=== PATIENT | female | born 1945 | race Caucasian/White ===

== ENCOUNTER 2018-01-06 18:37 | Inpatient (IN) | payer MEDICARE, OTHER, SELFPAY ==
[2018-01-06] VITALS (10 sets, daily range): BP systolic 94–153; BP diastolic 55–109; PULSE 91–167; RESP 16–17; TEMP 36.7–37.2; O2SAT 92–100
--- NOTE | 2018-01-06 19:27 | ED_ITS ---
HPI - Nausea/Vomiting/Diarrhea General Chief complaint: Nausea/Vomiting/Diarrhea Stated complaint: DIARRHEA,FEVER Time Seen by Provider: 01/06/18 19:00 Source: patient and family Mode of arrival: ambulatory Limitations: no limitations History of Present Illness MD complaint: diarrhea Onset (ago): day(s) (3) Description of Diarrhea: watery Location of pain: diffuse ( patient states the pain is really not in her abdomen , but all over the rest of her body. She states this is been going on for about 1 day. She states even her feet feel as though they're cramping.) and other Severity: moderate Quality: cramping Pain Consistency: other ( Patient states she mainly feels that if she moves or tries to walk.) Relieving factors: none Exacerbating factors: eating ( Patient states she has not really had an appetite since the diarrhea began, but that anything she takes by mouth seems to exacerbate her diarrhea. Daughter states, however, the patient has not had a bowel movement of any kind for the past 8 hr. Urination is also decreased.) Context: other ( No recent foreign travel, trauma, sick contacts, recent antibiotic use, surgery, or alcohol. No new medications.) Associated symptoms: myalgias and loss of appetite Related Data Home Medications Medication Instructions Recorded Confirmed anastrozole 1 mg PO DAILY 01/06/18 01/06/18 furosemide 40 mg PO PRN PRN 01/06/18 01/06/18 gabapentin 600 mg PO TID 01/06/18 01/06/18 loperamide [Imodium A-D] 2 mg PO BID PRN 01/06/18 01/06/18 meloxicam 15 mg PO DAILY 01/06/18 01/06/18 omeprazole 20 mg PO DAILY 01/06/18 01/06/18 Allergies Allergy/AdvReac Type Severity Reaction Status Date / Time iodine Allergy Mild Rash Verified 01/06/18 18:55 NSAIDS (Non-Steroidal AdvReac Intermediate Verified 01/06/18 18:55 Anti-Inflamma Review of Systems Review of Systems All systems reviewed & are unremarkable except as noted in HPI and below Constitutional Denies chills, Denies fever(s), Denies lethargy and Denies weakness Eyes Denies change in vision, Denies eye discharge, Denies irritation and Denies loss of vision Cardiovascular Denies chest pain, Denies irregular heart rhythm, Denies lightheadedness, Denies palpitations, Denies dyspnea, Denies dyspnea on exertion and Denies orthopnea Respiratory Denies cough, Denies dyspnea, Denies dyspnea on exertion and Denies wheezing Gastrointestinal Gastrointestinal: Reports change in bowel habits and Reports diarrhea Genitourinary Denies hematuria, Denies flank pain, Denies urinary incontinence and Denies urinary urgency Musculoskeletal Denies back pain, Denies muscle weakness, Denies numbness and Denies tingling Integumentary/Breasts Denies pruritus, Denies erythema, Denies rash and Denies wounds Neurologic Denies confusion, Denies loss of vision, Denies numbness, Denies tingling and Denies weakness Psychiatric Denies anxiety, Denies confusion, Denies depression, Denies homicidal ideation and Denies suicidal ideation Endocrine Denies palpitations Allergic/Immunologic Denies wheezing PFSH Social History household members: none Smoking Status: Former smoker alcohol intake: never Exam Initial Vital Signs Initial Vital Signs: Vital Signs Temperature 98.1 F 01/06/18 18:45 Pulse Rate 104 H 01/06/18 18:45 Respiratory Rate 16 01/06/18 18:45 Blood Pressure 98/66 01/06/18 18:45 Pulse Oximetry 100 01/06/18 18:45 Const General: cooperative and well developed Nutritional Appearance: well nourished Orientation: alert, awake, oriented x3 and not confused [facility] Head: normocephalic and atraumatic Ears: external ears normal and TM's normal bilaterally Nose: external nose normal and No nasal discharge Face and sinus: sinuses nontender, face symmetric, no sinus tenderness and No dry mucous membranes Mouth: oral mucosae normal and moist mucous membranes Teeth and gingiva: dentition normal Throat: tonsils normal and uvula midline Eyes General: appearance normal, both eyes and all related structures Eyelids: eyelids normal Conjunctivae: conjunctivae normal Sclera: sclerae normal Pupils: PERRL EOM: EOM intact bilaterally Neck Neck: normal visual inspection, trachea midline, No lymphadenopathy, No midline deformity and No JVD Lymphatic: No lymphedema Resp Effort & Inspection: normal respiratory effort, able to speak in complete sentences, no respiratory distress and no use of accessory muscles Auscultation: clear to auscultation bilaterally, no rales, no rhonchi and no wheezes Cardio Rate: regular rate Rhythm: regular rhythm Heart Sounds: no click, no gallops, no murmurs and no rubs Pulses: normal peripheral pulses GI Inspection: non-distended Palpation: soft, no hepatosplenomegaly, No guarding, No pulsatile mass and No tender Auscultation: normal bowel sounds Back/Spine/Pelvis Back: No CVA tenderness Cervical Spine: cervical ROM normal and No pain with cervical ROM Thoracic/Lumbar Spine: thoracic and lumbar spine normal to inspection Skin General: no rashes or lesions noted, No jaundice and No petechiae Neuro General: alert, oriented x3, gait normal and no focal motor deficits Speech: speech normal Extrem General: full ROM, no clubbing, cyanosis or edema, no pedal edema and no calf tenderness Procedures Misc Procedure Name of Procedure: Electrical cardioversion Time out performed: Yes Technique/Description of procedure performed: Patient was cardioverted with 50 J, secondary to hemodynamic instability, due to extreme tachycardia as a result of AFib with RVR, and hypotension. Procedure was performed by ED MD. Monitor reading prior to the procedure showed an irregular rhythm with a rate varying from the 180s to 190s, without ectopy. This is consistent with atrial fibrillation with RVR, as interpreted by EDMD. Patient tolerated procedure: Well Complications: none Additional Comments: After synchronize cardioversion with 50 joules of electricity, patient immediately converted from atrial fibrillation with rapid ventricular response to normal sinus rhythm on the monitor. Course Hospital Course: Patient was also found to have elevated AST and ALT, so a right upper quadrant ultrasound was performed. This showed no evidence of cholecystitis, but did show sludge in the gallbladder with mild distension. Normal common bile duct. Orders Ordered: ED Orders 01/07/18 02:54 Lactate 4HR (Lactic Acid Rflx) Stat 01/07/18 06:05 Lactate (Lactic Acid) Urgent Troponin I Urgent Acetaminophen (Tylenol) 650 mg PO Q6HR PRN PRN Reason: As Needed for Fever/Mild Pain Sodium Chloride (Normal Saline 0.9%) 1,000 mls @ 125 mls/hr IV CONT JOSE CARLOS Last Admin: 01/07/18 03:50 Dose: 125 mls/hr Morphine Sulfate (Morphine) 2 mg IV Q4HR PRN PRN Reason: Pain, Moderate (4-6) Discontinued Medications Acetaminophen (Tylenol) 650 mg PO Q6HR PRN PRN Reason: As Needed for Fever/Mild Pain Diltiazem HCl (Cardizem) 10 mg IV NOW ONE Stop: 01/06/18 21:55 Last Admin: 01/06/18 21:13 Dose: Not Given Sodium Chloride (Normal Saline 0.9%) 1,000 mls @ 1,000 mls/hr IV BOLUS ONE Stop: 01/06/18 20:54 Last Infusion: 01/07/18 03:50 Dose: 250 mls/hr Infusion: 01/07/18 02:18 Dose: 250 mls/hr Admin: 01/06/18 21:44 Dose: 1,000 mls/hr Ceftriaxone Sodium/Dextrose (Rocephin) 2 gm in 50 mls @ 100 mls/hr IV NOW ONE Stop: 01/07/18 00:12 Last Infusion: 01/07/18 02:21 Dose: 0 mls/hr Admin: 01/07/18 01:12 Dose: 100 mls/hr Sodium Chloride (Normal Saline 0.9%) 1,000 mls @ 125 mls/hr IV CONT JOSE CARLOS Last Admin: 01/07/18 03:46 Dose: Morphine Sulfate (Morphine) 2 mg IV NOW ONE Stop: 01/06/18 22:20 Last Admin: 01/06/18 21:15 Dose: Not Given Morphine Sulfate (Morphine) 2 mg IV Q4HR PRN PRN Reason: Pain, Moderate (4-6) Last Admin: 01/07/18 01:13 Dose: 2 mg Ondansetron HCl (Zofran) 4 mg IV Q4HR PRN PRN Reason: Nausea And Vomiting Last Admin: 01/07/18 01:20 Dose: 4 mg Vital Signs - 8 hr 01/07/18 01:13 01/07/18 02:00 01/07/18 03:05 Temperature 99.4 F 99.4 F 100.4 F H Pulse Rate 104 H 103 H Respiratory Rate 17 24 Blood Pressure 111/65 101/48 L Pulse Oximetry 97 94 01/07/18 03:30 01/07/18 04:16 01/07/18 05:59 Temperature 101.0 F H 98.6 F 97.8 F Pulse Rate Respiratory Rate Blood Pressure Pulse Oximetry MDM - Nausea/Vomiting/Diarrhea Medical Records Attestation: I reviewed the patient's medical records. Lab Data Attestation: I reviewed the patient's lab results. Result diagrams: 01/06/18 21:27 01/06/18 21:27 Lab Results 01/06/18 01/06/18 01/06/18 Range/Units 21:27 21:27 21:27 WBC 3.8 L (4.5-11.0) X10^3/uL RBC 4.26 (4.0-5.2) X10^6/uL Hgb 13.5 (12.0-16.0) g/dL Hct 39.3 (36-46) % MCV 92.1 (80-100) fL MCH 31.6 (26-34) PG MCHC 34.3 (30-36) % RDW 14.4 (11.6-14.8) % Plt Count 39 L (150-400) X10^3/uL Total Counted 100 Seg Neutrophils % 67.0 (38-70) % Band Neutrophils % 19.0 H (3-7) % Lymphocytes % (Manual) 7.0 L (25-45) % Monocytes % (Manual) 6.0 (2-11) % Metamyelocytes % 1.0 H (-0) % Neutrophils # (Manual) [phone] ([id number]) /uL Differential Comment 1+ large platelets Toxic Granulation Present H Toxic Vacuolation 1+ Platelet Estimate Decreased on smear RBC Morphology Normal morphology Sodium 125 L (137-145) mmol/L Potassium 3.6 (3.4-5.1) mmol/L Chloride 91 L (98-107) mmol/L Carbon Dioxide 27 (22-32) mmol/L BUN 22 H (7-17) mg/dL Creatinine 1.10 H (0.52-1.04) mg/dL Estimated GFR 49.1 L (>60) mL/min BUN/Creatinine Ratio 20.0 (6-22) Glucose 106 (80-110) mg/dL Lactate (0.7-2.1) mmol/L Calcium 8.8 (8.4-10.2) mg/dL Total Bilirubin 1.1 (0.2-1.3) mg/dL AST 497 H (14-36) IU/L ALT 137 H (9-52) IU/L Alkaline Phosphatase 50 (38-126) U/L Troponin I (0.01-0.034) ng/mL B-Natriuretic Peptide 833.0 H (<100) Total Protein 5.9 L (6.3-8.2) g/dL Albumin 3.2 L (3.5-5.0) g/dL Globulin 2.7 (1.7-4.1) g/dL Albumin/Globulin Ratio 1.2 (1.0-2.8) Urine Color Urine Appearance Urine pH (4.5-8.0) Ur Specific [place] (1.000-1.035) Urine Protein (Negative) Urine Glucose (UA) (Normal) g/dL Urine Ketones (NEGATIVE) Urine Occult Blood (Negative) Urine Nitrate (Negative) Urine Bilirubin (NEGATIVE) Urine Urobilinogen (0.2) E.U./dL Ur Leukocyte Esterase (NEGATIVE) Urine RBC (0-5/HPF) Urine WBC (0-5/HPF) Ur Squamous Epith Cells Ur Transition Epith Cell (0-5/HPF) Ur Renal Epithelial Cell Urine Bacteria (None) Ur Culture Indicated? Micro UA Comment 01/06/18 01/06/18 01/06/18 Range/Units 21:40 22:24 23:00 WBC (4.5-11.0) X10^3/uL RBC (4.0-5.2) X10^6/uL Hgb (12.0-16.0) g/dL Hct (36-46) % MCV (80-100) fL MCH (26-34) PG MCHC (30-36) % RDW (11.6-14.8) % Plt Count (150-400) X10^3/uL Total Counted Seg Neutrophils % (38-70) % Band Neutrophils % (3-7) % Lymphocytes % (Manual) (25-45) % Monocytes % (Manual) (2-11) % Metamyelocytes % (-0) % Neutrophils # (Manual) ([id number]) /uL Differential Comment Toxic Granulation Toxic Vacuolation Platelet Estimate RBC Morphology Sodium (137-145) mmol/L Potassium (3.4-5.1) mmol/L Chloride (98-107) mmol/L Carbon Dioxide (22-32) mmol/L BUN (7-17) mg/dL Creatinine (0.52-1.04) mg/dL Estimated GFR (>60) mL/min BUN/Creatinine Ratio (6-22) Glucose (80-110) mg/dL Lactate 3.0 H (0.7-2.1) mmol/L Calcium (8.4-10.2) mg/dL Total Bilirubin (0.2-1.3) mg/dL AST (14-36) IU/L ALT (9-52) IU/L Alkaline Phosphatase (38-126) U/L Troponin I 0.268 H* (0.01-0.034) ng/mL B-Natriuretic Peptide (<100) Total Protein (6.3-8.2) g/dL Albumin (3.5-5.0) g/dL Globulin (1.7-4.1) g/dL Albumin/Globulin Ratio (1.0-2.8) Urine Color Yellow Urine Appearance Cloudy Urine pH 5.0 (4.5-8.0) Ur Specific [place] 1.015 (1.000-1.035) Urine Protein 2+ H (Negative) Urine Glucose (UA) Negative (Normal) g/dL Urine Ketones Negative (NEGATIVE) Urine Occult Blood 3+ H (Negative) Urine Nitrate Negative (Negative) Urine Bilirubin Negative (NEGATIVE) Urine Urobilinogen 0.2 (0.2) E.U./dL Ur Leukocyte Esterase 3+ H (NEGATIVE) Urine RBC None seen (0-5/HPF) Urine WBC 30-100/hpf H (0-5/HPF) Ur Squamous Epith Cells 0-1 /hpf Ur Transition Epith Cell 5-10/hpf H (0-5/HPF) Ur Renal Epithelial Cell 1-5/hpf Urine Bacteria Many (>30) H (None) Ur Culture Indicated? Specimen cultured Micro UA Comment Not Reportable 01/07/18 01/07/18 01/07/18 Range/Units 02:54 06:05 06:05 WBC (4.5-11.0) X10^3/uL RBC (4.0-5.2) X10^6/uL Hgb (12.0-16.0) g/dL Hct (36-46) % MCV (80-100) fL MCH (26-34) PG MCHC (30-36) % RDW (11.6-14.8) % Plt Count (150-400) X10^3/uL Total Counted Seg Neutrophils % (38-70) % Band Neutrophils % (3-7) % Lymphocytes % (Manual) (25-45) % Monocytes % (Manual) (2-11) % Metamyelocytes % (-0) % Neutrophils # (Manual) ([id number]) /uL Differential Comment Toxic Granulation Toxic Vacuolation Platelet Estimate RBC Morphology Sodium (137-145) mmol/L Potassium (3.4-5.1) mmol/L Chloride (98-107) mmol/L Carbon Dioxide (22-32) mmol/L BUN (7-17) mg/dL Creatinine (0.52-1.04) mg/dL Estimated GFR (>60) mL/min BUN/Creatinine Ratio (6-22) Glucose (80-110) mg/dL Lactate 0.9 1.1 (0.7-2.1) mmol/L Calcium (8.4-10.2) mg/dL Total Bilirubin (0.2-1.3) mg/dL AST (14-36) IU/L ALT (9-52) IU/L Alkaline Phosphatase (38-126) U/L Troponin I 0.331 H* (0.01-0.034) ng/mL B-Natriuretic Peptide (<100) Total Protein (6.3-8.2) g/dL Albumin (3.5-5.0) g/dL Globulin (1.7-4.1) g/dL Albumin/Globulin Ratio (1.0-2.8) Urine Color Urine Appearance Urine pH (4.5-8.0) Ur Specific [place] (1.000-1.035) Urine Protein (Negative) Urine Glucose (UA) (Normal) g/dL Urine Ketones (NEGATIVE) Urine Occult Blood (Negative) Urine Nitrate (Negative) Urine Bilirubin (NEGATIVE) Urine Urobilinogen (0.2) E.U./dL Ur Leukocyte Esterase (NEGATIVE) Urine RBC (0-5/HPF) Urine WBC (0-5/HPF) Ur Squamous Epith Cells Ur Transition Epith Cell (0-5/HPF) Ur Renal Epithelial Cell Urine Bacteria (None) Ur Culture Indicated? Micro UA Comment Critical Care Time Critical Care Time: Yes Total Critical Care Time: 45 Attestation: Unstable dysrhythmia with high probability of imminent and life- threatening decline. Hypotension secondary to dysrhythmia and urosepsis. Critical care time includes time spent at bedside, gathering information from patient and family, old records, interpretation of test results, ordering and interpreting Radiology studies, discussing case with consultants, and reassessing the patient. Discharge Plan Departure Patient Disposition: Admitted As Inpatient Clinical Impression: Acute UTI, Atrial fibrillation with RVR, Elevated troponin, Acidosis, lactic, Acute urinary retention, Atrial fibrillation status post cardioversion, Cholelithiasis Discharge Date/Time: 01/07/18 02:18 Interventions: ED Discharge Assessment Last Done: 01/07/18 02:00 Admit Date/Time: 01/07/18 01:20 Admit Provider: Mason Ybarra
--- NOTE | 2018-01-06 19:34 | PC.NURSE ---
REport from Claire Bates RN, MD at for assessment
--- NOTE | 2018-01-06 20:36 | PC.NURSE ---
2019- unable to establis IV or draw labs - 2 attempts failed. Treasure RN will attempt TIFF
--- NOTE | 2018-01-06 21:30 | PC.NURSE ---
iv attempts 2 by ellie,2 by austyn and 2 by bunny
[2018-01-06 21:35] LABS: Hematocrit 39.3 % (36-46); Hemoglobin 13.5 g/dL (12.0-16.0); Mean Corpuscular HGB Conc 34.3 % (30-36); Mean Corpuscular Hemoglobin 31.6 PG (26-34); Mean Corpuscular Volume 92.1 fL (80-100); Platelet Count 39 X10^3/uL (150-400); Red Blood Cell Count 4.26 X10^6/uL (4.0-5.2); Red Cell Distribution Width 14.4 % (11.6-14.8); White Blood Cell Count 3.8 X10^3/uL (4.5-11.0)
[2018-01-06] MEDS: SODIUM CHLORIDE 0.9% 1,000 ML 1000 ML IV (21:44)
--- NOTE | 2018-01-06 21:44 | PC.NURSE ---
After numerous attempts to start an IV in the L arm the MD gave order to start IV in R arm if it could be established in the R AC. Pt. HR has escalated to the upper 100's with possible a fib on monitor. Pt. able to give small urine collection using BSC, sample sent to lab. Pt. denies and CP or SOB at present. IV est. by Isabel ALEJANDRE on first attempt. Blood to Labs. RT at BS currently to perform EKG.
[2018-01-06 21:46] LABS: Alanine Aminotransferase 137 IU/L (9-52); Albumin 3.2 g/dL (3.5-5.0); Albumin Globulin Ratio 1.2 (1.0-2.8); Alkaline Phosphatase 50 U/L (38-126); Aspartate Aminotransferase 497 IU/L (14-36); Bilirubin Total 1.1 mg/dL (0.2-1.3); Blood Urea Nitrogen 22 mg/dL (7-17); Calcium 8.8 mg/dL (8.4-10.2); Carbon Dioxide 27 mmol/L (22-32); Chloride 91 mmol/L (98-107); Estimated Glomerular Filt Rate 49.1 mL/min (>60); Globulin 2.7 g/dL (1.7-4.1); Glucose 106 mg/dL (80-110); HEMOLYSIS 29 (0-50); Potassium 3.6 mmol/L (3.4-5.1); Sodium 125 mmol/L (137-145); Total Protein 5.9 g/dL (6.3-8.2)
[2018-01-06 22:29] LABS: Neutrophils Absolute Manual 3268 /uL (3000-5900); Total Cells Counted 100
[2018-01-06 22:30] LABS: Morphology Comment 1+ LARGE PLATELETS; Platelet Estimate Decreased on smear; RBC Morphology Normal Morphology; Toxic Granulation Present; Toxic Vacuolation 1+
--- NOTE | 2018-01-06 22:33 | DI.US.S_ITS ---
PROCEDURE: US ABDOMEN COMPLETE INDICATIONS: ELEVATED LFTS TECHNIQUE: Real-time scanning was performed of the abdominal and retroperitoneal organs, with image documentation. COMPARISON: None. FINDINGS: Liver: Liver is normal in size and homogeneous in echotexture. Gallbladder: Gallbladder is prominent in size. Echogenic material which could represent sludge with tiny superimposed gallstones no gallbladder wall thickening. No pericholecystic fluid. No sonographic Garcia sign reported. Biliary ducts: Intrahepatic bile ducts are non-dilated. Extrahepatic bile duct caliber measures 9 mm. Normal is 6-7 mm or less in diameter, or 10 mm or less post-cholecystectomy. Pancreas: Visualized portions of the pancreas are sonographically normal. Spleen: Spleen is normal in size and homogeneous in echotexture. Kidneys: Kidneys are normal in size and echotexture. Right kidney measures 7.5 cm long; left kidney measures 11.3 cm long. No hydronephrosis or nephrolithiasis. No solid masses. Aorta: Visualized aorta is normal in caliber at less than 3 cm. Iliacs: Proximal common iliac arteries are normal in caliber at less than 2.5 cm. IVC: Intrahepatic inferior vena cava is patent. Miscellaneous: No free abdominal fluid. IMPRESSION: 1. Mildly dilated common bile duct measuring 9 mm. Recommend correlation with laboratory data to exclude biliary obstruction. If there is clinical concern for biliary obstruction, then MRCP or ERCP should be considered for further evaluation. 2. Gallbladder contains echogenic sludge with possible tiny superimposed gallstones. Dictated by: Marry Velarde MD, PhD on 01/07/2018 at 8:53 Approved by: Marry Velarde MD, PhD on 01/07/2018 at 8:59
[2018-01-06 22:55] LABS: RBC Urine None Seen (0-5/HPF)
[2018-01-06 22:58] LABS: Appearance Urine UA CLOUDY; Bilirubin Urine UA NEGATIVE (NEGATIVE); Color Urine UA YELLOW; Glucose Urine UA NEGATIVE (Normal); Ketones Urine UA NEGATIVE (NEGATIVE); Leukocyte Esterase Urine UA 3+ (NEGATIVE); Nitrite Urine UA Negative (Negative); Occult Blood Urine UA 3+ (Negative); Protein Urine UA 2+ (Negative); Specific Gravity Urine UA 1.015 (1.000-1.035); Urobilinogen Urine UA 0.2 E.U./dL (0.2)
--- NOTE | 2018-01-06 23:10 | PC.NURSE ---
2250 - lab not able to successfully attain all labs. at 2300 I mamta green top for troponin off IV line. BP currently 104 systolic. MD aware of frequent drops in BP. No current orders. Cardizem and Morphine still being held until patient more stable. Will continue to monitor vital signs
--- NOTE | 2018-01-06 23:12 | PC.NURSE ---
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 Placed on 2L NC profilactically, no change in HR... currently 97% with decent pleth. Will keep pt. on 2L at present.
[2018-01-06 23:14] LABS: Bacteria Urine Many (>30); Renal Epithelial Cells Urine 1-5/HPF; Squamous Epithelial Cell Urine 0-1 /HPF; Transitional Epi Cells Urine 5-10/HPF (0-5/HPF); WBC Urine 30-100/HPF (0-5/HPF)
[2018-01-06 23:15] LABS: Culture Indicated Urine Specimen Cultured
[2018-01-06 23:56] LABS: Troponin I 0.268 ng/mL (0.01-0.034)
[2018-01-07] VITALS (29 sets, daily range): BP systolic 79–125; BP diastolic 48–75; PULSE 58–155; RESP 16–24; TEMP 36.3–38.4; O2SAT 94–99; BMI 26.6
--- NOTE | 2018-01-07 | DI.ECHO.S_ITS ---
[place] [facility]---------+ [facility] +---------+ : : [address] : : : : [id number] : : : : Phone: [phone] Echocardiogram Report + + :Name: DANY JAIMES Study Date: 01/07/2018 Height: 67 in : :[facility] Exam Location: [facility] Weight: 187 lb: : Gender: Female BSA: 2.0 m2 : :: 1945 Age: 72 yrs BP: 94/57 mmHg: :Reason For Study: AFIB : : Performed By: Nitesh De La Garza : :Referring: AURORA HODGES : + + Interpretation Summary The patient was in atrial fibrillation with rapid ventricular response during the exam with a heart rate exceeding 100 bpm. The patient had a heart rate of 97-143 beats per minute. The patient had a bundle branch block rhythm during the exam. The left ventricular cavity appears to be small. There is moderate-severe concentric left ventricular hypertrophy. There is systolic anterior motion of the mitral valve. 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 Morphologically LV outflow tract appears to be small. The left ventricle is hyperdynamic. The ejection fraction is estimated to be 75-80%. Myocardium revealed increased echo reflectance. This could be due to hypertensive heart disease however cannot rule out infiltrative cardiomyopathy. The right ventricular cavity is small. The right ventricular systolic function is normal. The left atrium is severely dilated. There is severe mitral regurgitation. There is mild tricuspid regurgitation. Right ventricular systolic pressure is estimated to be 34 mmHg plus the clinically estimated CVP which cannot be estimated on this exam. Findings were discussed with Dr. Hodges. Procedure: A two-dimensional transthoracic echocardiogram with color flow and Doppler was performed. The study quality was technically adequate. There is no prior echocardiogram noted for this patient. The subcostal views were difficult to obtain and are suboptimal in quality. The patient was in atrial fibrillation with rapid ventricular response during the exam with a heart rate exceeding 100 bpm. The patient had a heart rate of 97-143 beats per minute. The patient had a bundle branch block rhythm during the exam. Left Ventricle: The LVOT velocity is 5.45 m/s. The left ventricular cavity is small. There is moderate-severe concentric left ventricular hypertrophy. 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 Myocardium revealed increased echo reflectance. This could be due to hypertensive heart disease however cannot rule out infiltrative cardiomyopathy. There is no thrombus. The ejection fraction is estimated to be 75-80%. The left ventricle is hyperdynamic. There are no focal wall motion abnormalities. Diastolic function could not be accurately assessed due to atrial fibrillation. Right Ventricle: The right ventricular cavity is small. The right ventricular systolic function is normal. Atria: The left atrium is severely dilated. Right atrial size is normal. The interatrial septum is intact with no evidence for an atrial septal defect. Mitral Valve: There is systolic anterior motion of the mitral valve. Heavy posterior mitral annulus calcification. Redundant elongated chordae are noted. There is no evidence of mitral valve prolapse. There is severe mitral regurgitation. Aortic Valve: The aortic valve is grossly normal. The aortic valve opens well. There is no aortic valve stenosis. No aortic regurgitation is present. Tricuspid Valve: Tricuspid leaflets are thickened. There is mild tricuspid regurgitation. Right ventricular systolic pressure is estimated to be 34 mmHg plus the clinically estimated CVP which cannot be estimated on this exam. Pulmonic Valve: The pulmonic valve is not visualized. Great Vessels: The aortic root is normal size. The ascending aorta could not be visualized. The pulmonary artery is normal size. The inferior vena cava was not visualized. Pericardium/ Pleura There is no pericardial effusion. There is no pleural effusion. MMode/2D Measurements & Calculations LVIDd: 4.4 cm Ao root diam: 2.9 cm LVIDs: 3.0 cm Aortic Jxn: 1.5 cm FS: 31.9 % Ao Arch Diam (Prox Trans): 2.1 cm IVSd: 1.4 cm LVPWd: 1.3 cm LV lafleur. diameter/BSA (cm/m^2): 2.2 LV sys. diameter/BSA (cm/m^2): 1.5 LA A2 area: 36.0 cm2 RA long axis: 4.9 cm LA A4 area: 41.8 cm2 RA area: 12.8 cm2 LA length (vol): 7.3 cm RA vol: 28.3 ml LA vol: 175.5 ml RA : 14.4 ml/m2 LA vol index: 89.3 ml/m2 Doppler Measurements & Calculations MV E max david: 157.7 cm/sec TR max david: 289.1 cm/sec MV A max david: 1.3 cm/sec TR max P.5 mmHg MV E/A: 117.8 Med Peak E' David: 5.4 cm/sec E/E' med: 29.4 Lat Peak E' David: 6.1 cm/sec E/E' lat: 26.0 E/e' average: 27.7 MV dec time: 0.23 sec MV V2 mean: 110.6 cm/sec MV mean P.6 mmHg MV V2 VTI: 30.3 cm Reading Physician:BALJIT
--- NOTE | 2018-01-07 | DI.CT.S_ITS ---
PROCEDURE: CT ANGIO CHEST INDICATIONS: Short of breath TECHNIQUE: After the administration of intravenous contrast, 2 mm thick sections acquired from the pulmonary apices to the posterior costophrenic angles. 3-dimensional maximum intensity projection (MIP) coronal and sagittal reformats were then acquired through the thorax. For radiation dose reduction, the following was used: automated exposure control, adjustment of mA and/or kV according to patient size. COMPARISON: [facility], , US PERIPH VENOUS LOW EXTREM BI, 01/07/2018, 11:20. [facility], CR, XR CHEST 1V, 01/07/2018, 9:15. FINDINGS: Image quality: Excellent. Pulmonary arteries: Pulmonary arteries are normal in size, and demonstrate no intraluminal filling defects to suggest central pulmonary embolism. Lungs and pleura: Atelectasis noted in the dependent portions of the lung bases. Trace bilateral pleural effusions. No pneumothorax.. Central and peripheral airways are patent. Mediastinum: Central venous catheter projects to distal SVC. Heart size is enlarged, without pericardial effusion. Atherosclerotic calcifications are noted in the aorta, great vessels and the coronary vasculature. Mitral annulus calcifications noted. No mediastinal or hilar adenopathy. Thoracic aorta is normal in caliber and enhancement. Esophagus is normal in caliber, without hiatal hernia. Bones and chest wall: No suspicious bony lesions. Ribs and thoracic spine appear intact throughout. 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 Left lobe of thyroid gland is normal. No axillary or supraclavicular adenopathy. Abdomen: Calcified sutures noted in the proximal stomach. Visualized upper abdominal solid organs appear normal in the early arterial phase of enhancement. IMPRESSION: 1. No pulmonary embolus. 2. Trace bilateral pleural effusions. 3. Bibasilar atelectasis. 4. Cardiomegaly. Dictated by: Marry Velarde MD, PhD on 01/07/2018 at 13:19 Approved by: Marry Velarde MD, PhD on 01/07/2018 at 13:29
--- NOTE | 2018-01-07 | DI.US.S_ITS ---
PROCEDURE: US PERIPH VENOUS LOW EXTREM BI INDICATIONS: r/o DVT TECHNIQUE: Real-time imaging, as well as color and pulse Doppler interrogation, were performed of the deep veins of both legs from the inguinal ligament to the popliteal fossa. COMPARISON: None. FINDINGS: The deep veins are normally compressible, and free of intraluminal thrombus. Color and pulse Doppler demonstrate normal phasic intravascular flow. There is normal augmentation response to distal compression maneuver. IMPRESSION: Negative for deep venous thrombosis. Dictated by: Asaf Cantu M.D. on 01/07/2018 at 10:47 Approved by: Asaf Cantu M.D. on 01/07/2018 at 10:48
[2018-01-07] MEDS: CEFTRIAXONE 2 GM/50 ML FROZ.PIGGY IV (01:12)
[2018-01-07] MEDS: MORPHINE 2 MG/ML INJ IV (01:13)
[2018-01-07] MEDS: ONDANSETRON 4 MG/2 ML INJ IV (01:20)
--- NOTE | 2018-01-07 01:21 | PC.NURSE ---
Pt. admin Morphine due to complaints of Hurting all over. Pt BP 106/54 prior to Morphine
--- NOTE | 2018-01-07 02:13 | PC.NURSE ---
Total patient output from cook placement 1300 ml
[2018-01-07 02:48] LABS: Reflexed Lactate in 2 Hours Y
[2018-01-07 03:13] LABS: Lactate 2HR (Lactic Acid Rflx) 0.9 mmol/L (0.7-2.1)
[2018-01-07] MEDS: SODIUM CHLORIDE 0.9% 1,000 ML 125 ML IV (03:50)
--- NOTE | 2018-01-07 06:31 | PC.ADMIT ---
Addendum entered by Merna Presley R.N. 01/07/18 06:32: Admission note: Pt arrived at appr 0235 to room 227 from the ER. Pt oriented to self and place, thought it was Jan 1997, weak and needed a slider board to transfer to the bed. Medicated in the ER for pain, denies pain at this time. Pt arrived on 2L o2 from the ER, RA 98% with diminished lung sounds. Tele in place. IVF infusing. Ahnna patent. Pt oriented to room and call light. Bed alarm on for safety, call light within reach. [facility] Admission Note: The patient,DANY JAIMES,72 y/o, was given written information regarding hospital policies, unit procedures and contact persons. Patient's smoking status: Former smoker. Vital Signs - 8 hr 01/06/18 22:45 01/06/18 22:52 01/06/18 23:15 Temperature 99 F Pulse Rate 106 H 105 H 109 H Respiratory Rate 16 17 16 Blood Pressure Blood Pressure [Right Arm] 116/81 H 94/69 107/75 Pulse Oximetry 92 93 92 01/06/18 23:45 01/07/18 01:13 01/07/18 02:00 Temperature 99 F 99.4 F 99.4 F Pulse Rate 111 H 104 H Respiratory Rate 17 Blood Pressure 111/65 Blood Pressure [Right Arm] 116/81 H Pulse Oximetry 97 01/07/18 03:05 01/07/18 03:30 01/07/18 04:16 Temperature 100.4 F H 101.0 F H 98.6 F Pulse Rate 103 H Respiratory Rate 24 Blood Pressure 101/48 L Blood Pressure [Right Arm] Pulse Oximetry 94 01/07/18 05:59 Temperature 97.8 F Pulse Rate Respiratory Rate Blood Pressure Blood Pressure [Right Arm] Pulse Oximetry
[2018-01-07 06:36] LABS: Lactate (Lactic Acid) 1.1 mmol/L (0.7-2.1)
[2018-01-07 07:00] LABS: Troponin I 0.331 ng/mL (0.01-0.034)
--- NOTE | 2018-01-07 08:16 | PC.NURSE ---
Addendum entered by Felicitas Iglesias R.N. 01/07/18 09:00: Another 10mg iv cardizem given as ordered. HR continues in 130's. DR Hodges aware and ordering dilt Drip. Original Note: Addendum entered by Felicitas Iglesias R.N. 01/07/18 08:47: BP 95/50 HR 158. increased IVF NS to 200cc/hr per verbal order by Dr Hodges. Original Note: Addendum entered by Felicitas Iglesias R.N. 01/07/18 08:39: 10mg IV diltiazem given as ordered, bp 112/[address] Hodges is to assess patient. Original Note: Pt alert, oriented, notified by ICU nurse patients heart rate in 150's narrow complex, BP 96/67, RR 18, denies chest pain and shortness of breath. Does complain of neck and back pain, afebrile. Dr Hodges notified of patients heart rate. States she will be in to see patient shortly. RT in room to do EKG.
[2018-01-07] MEDS: dilTIAZem 25 MG/5 ML SDV 10 MG IV (08:38)
[2018-01-07] MEDS: dilTIAZem 5 MG/ML SDV 10 MG IV (08:55)
--- NOTE | 2018-01-07 09:01 | DI.RAD.S_ITS ---
PROCEDURE: XR CHEST 1V INDICATIONS: atrial fibrillation TECHNIQUE: One view of the chest was acquired. COMPARISON: None. FINDINGS: Surgical changes and devices: None. Lungs and pleura: No pleural effusions or pneumothorax. Lungs are clear. Mediastinum: Mediastinal contours appear normal. Heart size is normal. Bones and chest wall: No suspicious bony lesions. Overlying soft tissues appear unremarkable. IMPRESSION: No radiographic evidence of acute cardiopulmonary pathology. Dictated by: Nathan Sethi M.D. on 01/07/2018 at 10:31 Approved by: Nathan Sethi M.D. on 01/07/2018 at 10:32
--- NOTE | 2018-01-07 09:28 | P.HP_ITS ---
History of Present Illness Date Patient Seen: 01/07/18 Time Patient Seen: 09:14 Chief complaint: DIARRHEA,FEVER Narrative: Patient is a 72 y/o female visiting with her daughter on [facility] when she developed diarrhea 5 days prior to admission. She had multiple large volume stools Friday with associated fever to 104. She subsequently had daily diarrhea but less volume. No stool today. No recent antibiotics or hospitalizations. Patient complained of feeling weak and was unable to ambulate independently so daughter brought her into the hospital. In the ED she was found to be in rapid atrial fibrillation. She was cardioverted but did not remain in sinus rhythm. Her heart rate this morning was 150. Patient denies chest pain, palpitations, or shortness of breath. She has no history of Atrial fibrillation. She takes lasix as needed for swelling when she travels. She denies nausea, or abdominal pain, no headache, blurred vision, or double vision, weakness all over. She denies hemetemsis, melena, or bright red blood per rectum. She denies dysuria, hematuria, or pyuria. No weight loss or gain. She reports some pain in her lower extremities. Patient has a history of metastatic breast cancer and is s/p right mastectomy one year ago. She is on anastrozole daily but did not receive chemo or radiation. Patient was found to have hyponatremia on admission and is admitted for further evaluation Patient History Medical History History of bleeding ulcers (Acute) Metastatic breast cancer (Acute) Surgical History H/O right mastectomy (Acute) Family & Social History Family History: Reviewed 01/07/18 by Isabel Hodges MD Family history unavailable: Yes Social History: household members none Prior Living Arrangements House Safety & Behavioral: Feels Safe in Current Yes Environment Been Physically Hurt or No Threatened By a Person Suicidal Ideation Description None Suicide Plan Description No Plan Tobacco & Substance use: Smoking Status Former smoker alcohol intake never alcohol intake frequency 0-2 drinks per day Substance Use Type marijuana Meds Home Medications Medication Instructions Recorded Confirmed Type anastrozole 1 mg PO DAILY 01/06/18 01/06/18 History furosemide 40 mg PO PRN PRN 01/06/18 01/06/18 History gabapentin 600 mg PO TID 01/06/18 01/06/18 History loperamide [Imodium A-D] 2 mg PO BID PRN 01/06/18 01/06/18 History meloxicam 15 mg PO DAILY 01/06/18 01/06/18 History omeprazole 20 mg PO DAILY 01/06/18 01/06/18 History Allergies Allergy/AdvReac Type Severity Reaction Status Date / Time iodine Allergy Mild Rash Verified 01/06/18 18:55 NSAIDS (Non-Steroidal AdvReac Intermediate Verified 01/06/18 18:55 Anti-Inflamma Review of Systems Review of Systems All systems reviewed & are unremarkable except as noted in HPI and below Exam Vital Signs (past 8 hours): - 01/07/18 02:00 01/07/18 03:05 01/07/18 03:30 Temperature 99.4 F 100.4 F H 101.0 F H Pulse Rate 104 H 103 H Respiratory Rate 17 24 Blood Pressure 111/65 101/48 L Pulse Oximetry 97 94 01/07/18 04:16 01/07/18 05:59 01/07/18 07:30 Temperature 98.6 F 97.8 F 98.4 F Pulse Rate 81 Respiratory Rate 18 Blood Pressure 113/66 Pulse Oximetry 97 01/07/18 08:21 01/07/18 08:29 01/07/18 08:38 Temperature Pulse Rate 149 H 149 H 146 H Respiratory Rate 18 Blood Pressure 96/67 115/71 112/75 Pulse Oximetry 01/07/18 08:50 01/07/18 08:55 01/07/18 09:02 Temperature Pulse Rate 155 H 153 H 122 H Respiratory Rate Blood Pressure 125/59 H 106/52 L 79/48 L Pulse Oximetry 01/07/18 09:03 Temperature Pulse Rate 120 H Respiratory Rate Blood Pressure 96/49 L Pulse Oximetry Oxygen Delivery Method Room Air Oxygen Flow Rate 2 Narrative Exam Narrative: HEENT: NC/AT, PERRL, EOMI, Oropharynx clear Neck is supple without adenopathy Lungs: Clear to ausculatation CV: Tachy Irregularly, irregular with 2/6 LENARD ABD; Obese, soft/ non tender non distended, NO HSM Ext: Left leg with 2+ edema Neuro: non focal Skin: no lesions Objective Labs Result Diagrams: 01/06/18 21:27 01/06/18 21:27 Labs: Laboratory Results - last 24 hr 01/06/18 01/06/18 01/06/18 21:27 21:27 21:27 WBC 3.8 L RBC 4.26 Hgb 13.5 Hct 39.3 MCV 92.1 MCH 31.6 MCHC 34.3 RDW 14.4 Plt Count 39 L Total Counted 100 Seg Neutrophils % 67.0 Band Neutrophils % 19.0 H Lymphocytes % (Manual) 7.0 L Monocytes % (Manual) 6.0 Metamyelocytes % 1.0 H Neutrophils # (Manual) 3268 Differential Comment 1+ large platelets Toxic Granulation Present H Toxic Vacuolation 1+ Platelet Estimate Decreased on smear RBC Morphology Normal morphology Sodium 125 L Potassium 3.6 Chloride 91 L Carbon Dioxide 27 BUN 22 H Creatinine 1.10 H Estimated GFR 49.1 L BUN/Creatinine Ratio 20.0 Glucose 106 Lactate Calcium 8.8 Total Bilirubin 1.1 AST 497 H ALT 137 H Alkaline Phosphatase 50 Troponin I B-Natriuretic Peptide 833.0 H Total Protein 5.9 L Albumin 3.2 L Globulin 2.7 Albumin/Globulin Ratio 1.2 Urine Color Urine Appearance Urine pH Ur Specific [place] Urine Protein Urine Glucose (UA) Urine Ketones Urine Occult Blood Urine Nitrate Urine Bilirubin Urine Urobilinogen Ur Leukocyte Esterase Urine RBC Urine WBC Ur Squamous Epith Cells Ur Transition Epith Cell Ur Renal Epithelial Cell Urine Bacteria Ur Culture Indicated? Micro UA Comment 01/06/18 01/06/18 01/06/18 21:40 22:24 23:00 WBC RBC Hgb Hct MCV MCH MCHC RDW Plt Count Total Counted Seg Neutrophils % Band Neutrophils % Lymphocytes % (Manual) Monocytes % (Manual) Metamyelocytes % Neutrophils # (Manual) Differential Comment Toxic Granulation Toxic Vacuolation Platelet Estimate RBC Morphology Sodium Potassium Chloride Carbon Dioxide BUN Creatinine Estimated GFR BUN/Creatinine Ratio Glucose Lactate 3.0 H Calcium Total Bilirubin AST ALT Alkaline Phosphatase Troponin I 0.268 H* B-Natriuretic Peptide Total Protein Albumin Globulin Albumin/Globulin Ratio Urine Color Yellow Urine Appearance Cloudy Urine pH 5.0 Ur Specific [place] 1.015 Urine Protein 2+ H Urine Glucose (UA) Negative Urine Ketones Negative Urine Occult Blood 3+ H Urine Nitrate Negative Urine Bilirubin Negative Urine Urobilinogen 0.2 Ur Leukocyte Esterase 3+ H Urine RBC None seen Urine WBC 30-100/hpf H Ur Squamous Epith Cells 0-1 /hpf Ur Transition Epith Cell 5-10/hpf H Ur Renal Epithelial Cell 1-5/hpf Urine Bacteria Many (>30) H Ur Culture Indicated? Specimen cultured Micro UA Comment Not Reportable 01/07/18 01/07/18 01/07/18 02:54 06:05 06:05 WBC RBC Hgb Hct MCV MCH MCHC RDW Plt Count Total Counted Seg Neutrophils % Band Neutrophils % Lymphocytes % (Manual) Monocytes % (Manual) Metamyelocytes % Neutrophils # (Manual) Differential Comment Toxic Granulation Toxic Vacuolation Platelet Estimate RBC Morphology Sodium Potassium Chloride Carbon Dioxide BUN Creatinine Estimated GFR BUN/Creatinine Ratio Glucose Lactate 0.9 1.1 Calcium Total Bilirubin AST ALT Alkaline Phosphatase Troponin I 0.331 H* B-Natriuretic Peptide Total Protein Albumin Globulin Albumin/Globulin Ratio Urine Color Urine Appearance Urine pH Ur Specific [place] Urine Protein Urine Glucose (UA) Urine Ketones Urine Occult Blood Urine Nitrate Urine Bilirubin Urine Urobilinogen Ur Leukocyte Esterase Urine RBC Urine WBC Ur Squamous Epith Cells Ur Transition Epith Cell Ur Renal Epithelial Cell Urine Bacteria Ur Culture Indicated? Micro UA Comment Assessment & Plan (1) Atrial fibrillation with RVR: Problem details: patient continues to have rapid atrial fibrillation despite cardioversion. Will now place on Cardizem drip Current visit: Yes Status: Acute (2) Acute UTI: Problem details: continue ceftriaxone, urine appears to be gram negative kassandra Current visit: Yes Status: Acute (3) Elevated troponin: Problem details: Will trend troponins. She will likely need a myocardial perfusion study before discharge Will check troponins, start baby asa for now Current visit: Yes Status: Acute (4) Atrial fibrillation status post cardioversion: Problem details: Cardizem drip Current visit: Yes Status: Acute (5) Hyponatremia: Problem details: Saline for now given recent diarrhea. Will follow Current visit: Yes Status: Acute (6) Thrombocytopenia: Problem details: No heparin, Will place SCD's will follow daily Current visit: Yes Status: Acute (7) Diarrhea: Problem details: Will check stool for Cdiff, Culture, O&P Current visit: Yes Status: Acute (8) Left leg swelling: Problem details: Duplex of lower extremity ordered. Will check D- Dimer Given history of Metastatic Breast Ca, if negative consider CT Angio to r/o PE given new onset of rapid atrial fibrillation Current visit: Yes Status: Acute
[2018-01-07] MEDS: dilTIAZem 125 MG in DEXTROSE 5 % IN WATER 100 ML IV (09:29)
[2018-01-07] MEDS: HYDROMORPHONE 1 MG INJ 0.5 MG IV (09:57)
[2018-01-07] MEDS: SODIUM CHLORIDE 0.9% 1,000 ML 84 ML IV ×2 (10:04→19:41)
--- NOTE | 2018-01-07 10:41 | CM.DANOTE ---
DCP: Case received, EMR reviewed. Have not yet met with patient, for she is not up to having anyone in room, due to illness. Daughter is at bedside. Patient is a 72 year old female who admitted early this morning to the care of the hospitalist team. Unknown PCP at this time, lives in [place], [place]. Payer: Medicare/[employer]. Patient carries diagnosis of hypoatremia secondary to diarrhea. Also was admitted with fever. patient lives in [place], [place], and was visiting her daughter on [facility]. P: DCP will plan to assess when she accepts visitor in room. Charleen Davey RN/Resizer Operator
--- NOTE | 2018-01-07 10:49 | DI.RAD.S_ITS ---
PROCEDURE: XR CHEST FOR PICC 1V INDICATIONS: picc placement COMPARISON: 01/07/2018. FINDINGS: PICC was placed by the intravenous therapy team from the left side. Fluoroscopic spot film demonstrates tip of PICC in the mid SVC. IMPRESSION: Tip of PICC lies within the mid SVC. Dictated by: Nathan Sethi M.D. on 01/07/2018 at 11:20 Approved by: Nathan Sethi M.D. on 01/07/2018 at 11:20
[2018-01-07 11:27] LABS: Hematocrit 37.8 % (36-46); Hemoglobin 12.9 g/dL (12.0-16.0); Mean Corpuscular Hemoglobin 31.4 PG (26-34); Mean Corpuscular Volume 92.2 fL (80-100); Red Cell Distribution Width 14.5 % (11.6-14.8); White Blood Cell Count 3.6 X10^3/uL (4.5-11.0)
[2018-01-07 11:28] LABS: Add Manual Diff / Slide Review YES; Platelet Count 33 X10^3/uL (150-400)
[2018-01-07] MEDS: CEFTRIAXONE 1 GM/50 ML FROZ.PIGGY IV (11:34)
[2018-01-07 11:43] LABS: BUN Creatinine Ratio 25.6 (6-22); Blood Urea Nitrogen 23 mg/dL (7-17); Carbon Dioxide 24 mmol/L (22-32); Chloride 95 mmol/L (98-107); Cholesterol 83 mg/dL (140-199); Estimated Glomerular Filt Rate > 60.0 mL/min (>60); Glucose 106 mg/dL (80-110); HDL Cholesterol 27 mg/dL (40-60); HEMOLYSIS < 15 (0-50); LDL Cholesterol Calculated 37 mg/dL (<100); Potassium 3.4 mmol/L (3.4-5.1); Sodium 126 mmol/L (137-145); Triglycerides 93 mg/dL (35-150)
[2018-01-07 11:44] LABS: D Dimer 2789 ng/mL (<230)
[2018-01-07 11:48] LABS: Neutrophils Absolute Manual 3024 /uL (3000-5900); RBC Morphology Normal Morphology; Total Cells Counted 100
[2018-01-07 11:53] LABS: Creatine Kinase 3028 U/L (30-135)
[2018-01-07 12:14] LABS: Troponin I 0.239 ng/mL (0.01-0.034)
[2018-01-07] MEDS: ACETAMINOPHEN 325 MG TABLET 650 MG PO (12:35)
[2018-01-07] MEDS: HYDROMORPHONE 0.5 MG INJ IV (13:58)
--- NOTE | 2018-01-07 14:06 | PC.NURSE ---
Day Shift Note Pt to ICU at about 0900 for afib RVR in the 150s. After 2 doses 10 mg diltiazem, heart rate to 130s, placed on diltiazem gtt. Denies any chest pain. Did report leg, back, and shoulder pain - received Dilaudid IV. Denies nausea but reports very little appetite. BP in the 90-100s systolic. Pt to CT scan at 1345 and back, tolerated well. Dr. Hodges called at 1400 due to pt's heart rate continuing to run in the 100-110s, order for PO metoprolol received with instructions to wean diltiazem gtt to off. Pt family in room. Call light within reach. Bed alarm on.
[2018-01-07] MEDS: METOPROLOL 25 MG TABLET PO ×2 (14:24→22:48)
[2018-01-07] MEDS: GABAPENTIN 600 MG TABLET PO ×2 (14:26→19:40)
[2018-01-07] MEDS: HYDROCODONE/ACET 5/325 TABLET 1 TAB PO (19:40)
--- NOTE | 2018-01-07 22:20 | PC.NURSE ---
Pt remains very drowsy throughout the shift. Awakes to light stimuli. Slow verbal responses. Denies nausea. Denies feeling hungry. No BM this shift. Pt has declined anything but slight body repositioning. At 1700 MD rounded, updated pt family to Echo results and treatment plan. Pt mostly slept through conversation. 1929 - Pt c/o pain, generalized. Grimace with movement. Declines reposition. Able to take po meds in carrier. 2214 - Pt hr continues to trend up, 90-110. BP remains 90's/50's. Denies lightheadedness. A-febril. Metoprolol given at 2250. Pt reoriented to place and situation. Slight reposition. Hanna catheter with 300cc out.
[2018-01-08] VITALS (22 sets, daily range): BP systolic 71–99; BP diastolic 41–60; PULSE 88–134; RESP 15–21; TEMP 36.3–37.4; O2SAT 95–100
--- NOTE | 2018-01-08 00:06 | PC.NURSE ---
Addendum entered by Milind Dixon R.N. 01/08/18 06:49: 0625: Pt less coherent, does not remember where she is, and more somnolent. She follows commands, opens her eyes, focuses and tracks. Fluid bolus infusing. 0645: Daughter notified of patients change in level of consciousness; she will be here soon. Original Note: Addendum entered by Milind Dixon R.N. 01/08/18 06:16: 0600: Dr. Hodges notified by phone of current blood pressures with DBP <80, and low urine output. New orders given for labs, cxr, and NS fluid bolus of 500cc. Original Note: Application Support Lead Note: 0775: Pt awake, converses appropriately. PICC in lt upper arm patent, dressing cdi. Hanna catheter patent, urine is cloudy betsy. Pt declines to turn and repostion at this time. 0010: Dr. Hodges notified by phone of low blood pressure and current HR of 92-110. Orders are to hold Metoprolol for SBP<95, and call MD for SBP <80.
--- NOTE | 2018-01-08 06:13 | DI.RAD.S_ITS ---
PROCEDURE: XR CHEST 1V INDICATIONS: follow up, shortness of breath TECHNIQUE: One view of the chest was acquired. COMPARISON: [facility], CR, XR CHEST 1V, 01/07/2018, 9:15. [facility], CR, XR CHEST FOR PICC 1V, 01/07/2018, 10:53. FINDINGS: Surgical changes and devices: Left-sided PICC line with the tip projecting in the upper SVC. Lungs and pleura: No pleural effusions or pneumothorax. Lungs are clear. Mediastinum: Mediastinal contours appear normal. Heart size is normal. Bones and chest wall: Right sided colonic interposition IMPRESSION: No acute consolidation. Scattered scarring/atelectasis. Dictated by: Kevin Nixon M.D. on 01/08/2018 at 8:23 Approved by: Kevin Nixon M.D. on 01/08/2018 at 8:28
[2018-01-08] MEDS: SODIUM CHLORIDE 0.9% 500 ML 1000 ML IV ×3 (06:20→21:27)
[2018-01-08] MEDS: SODIUM CHLORIDE 0.9% 500 ML IV ×2 (06:30→23:00)
[2018-01-08 06:53] LABS: Hematocrit 40.6 % (36-46); Hemoglobin 13.9 g/dL (12.0-16.0); Mean Corpuscular HGB Conc 34.1 % (30-36); Mean Corpuscular Hemoglobin 31.1 PG (26-34); Mean Corpuscular Volume 91.2 fL (80-100); Red Blood Cell Count 4.45 X10^6/uL (4.0-5.2); White Blood Cell Count 5.6 X10^3/uL (4.5-11.0)
[2018-01-08 06:55] LABS: Platelet Count 41 X10^3/uL (150-400)
[2018-01-08 06:58] LABS: Alanine Aminotransferase 76 IU/L (9-52); Albumin 2.3 g/dL (3.5-5.0); Albumin Globulin Ratio 0.9 (1.0-2.8); Alkaline Phosphatase 46 U/L (38-126); Aspartate Aminotransferase 111 IU/L (14-36); BUN Creatinine Ratio 33.3 (6-22); Bilirubin Total 0.4 mg/dL (0.2-1.3); Blood Urea Nitrogen 30 mg/dL (7-17); Calcium 8.4 mg/dL (8.4-10.2); Carbon Dioxide 19 mmol/L (22-32); Chloride 98 mmol/L (98-107); Creatine Kinase 472 U/L (30-135); Estimated Glomerular Filt Rate > 60.0 mL/min (>60); Globulin 2.6 g/dL (1.7-4.1); Glucose 117 mg/dL (80-110); HEMOLYSIS < 15 (0-50); Potassium 3.6 mmol/L (3.4-5.1); Sodium 127 mmol/L (137-145); Total Protein 4.9 g/dL (6.3-8.2)
[2018-01-08 07:14] LABS: Troponin I 0.222 ng/mL (0.01-0.034)
[2018-01-08 07:19] LABS: Neutrophils Absolute Manual 5096 /uL (3000-5900); Total Cells Counted 100
[2018-01-08 07:20] LABS: Dohle Bodies 1+; Toxic Granulation Present
[2018-01-08] MEDS: SODIUM CHLORIDE 0.9% 1,000 ML 84 ML IV (08:10)
[2018-01-08] MEDS: SODIUM CHLORIDE 0.9% 1,000 ML 1000 ML IV (08:30)
[2018-01-08 08:44] LABS: Magnesium 2.3 mg/dL (1.6-2.3)
--- NOTE | 2018-01-08 08:54 | PC.NURSE ---
pt somulent; daughter here. Dr. Hodges in to see pt. hypotension. IV bolus infusing. 3-4+ non pitting edema. code status discussed and daughter states full code
[2018-01-08] MEDS: CEFTRIAXONE 1 GM/50 ML FROZ.PIGGY IV (09:26)
[2018-01-08] MEDS: AMIODARONE 200 MG TABLET 400 MG PO ×3 (10:28→21:16)
[2018-01-08] MEDS: SODIUM CHLORIDE 0.9% 1,000 ML 250 ML IV (10:29)
--- NOTE | 2018-01-08 10:47 | P.PN_ITS ---
Subjective Date Patient Seen: 01/08/18 Time Patient Seen: 08:00 Interval history: Difficult night. Patient remained in rapid atrial fibrillation. She had some improvement in her heart rate with metoprolol, however she became hypotensive. She is getting IV hydration currently. She complains of leg pain. She denies shortness of breath, chest pain, nausea, or further diarrhea. She denies palpitations. Patient is visiting from [place], [place] with family on [facility]. 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 Exam Vital Signs (past 8 hours): - 01/08/18 04:07 01/08/18 04:45 01/08/18 05:45 Temperature 98.4 F Pulse Rate 107 H 88 105 H Respiratory Rate 20 16 Blood Pressure 77/41 L 88/48 L 75/50 L Pulse Oximetry 95 97 01/08/18 07:15 01/08/18 08:10 01/08/18 08:39 Temperature 99.1 F 98.3 F Pulse Rate 116 H 112 H Respiratory Rate 16 15 Blood Pressure 77/45 L 78/51 L Pulse Oximetry 96 95 98 01/08/18 09:21 01/08/18 10:11 01/08/18 10:34 Temperature 98.2 F 97.4 F L Pulse Rate 116 H 117 H Respiratory Rate 17 17 Blood Pressure 71/50 L 74/52 L 99/53 L Pulse Oximetry 97 96 Oxygen Delivery Method Room Air Oxygen Flow Rate 0 Narrative Exam Narrative: Lethargic but arousable Lungs: clear to auscultation CV: Tachy, irregularly irregular 3/6 LENARD Abd: soft/non tender non distended Ext: 3+ edema on right 2+ edema on left Objective Labs Result Diagrams: 01/08/18 06:32 01/08/18 06:32 Labs: Laboratory Results - last 24 hr 01/07/18 01/07/18 01/07/18 06:05 10:00 11:15 WBC 3.6 L RBC 4.10 Hgb 12.9 Hct 37.8 MCV 92.2 MCH 31.4 MCHC 34.0 RDW 14.5 Plt Count 33 L* Neut % (Auto) Not Reportable Lymph % (Auto) Not Reportable [place] % (Auto) Not Reportable Eos % (Auto) Not Reportable Baso % (Auto) Not Reportable Total Counted 100 Seg Neutrophils % 49.0 Band Neutrophils % 35.0 H Lymphocytes % (Manual) 2.0 L Monocytes % (Manual) 10.0 Eosinophils % (Manual) 1.0 L Metamyelocytes % 3.0 H Neutrophils # (Manual) 3024 Toxic Granulation Dohle Bodies Platelet Estimate RBC Morphology Normal morphology D-Dimer Sodium Cancelled Potassium Cancelled Chloride Cancelled Carbon Dioxide Cancelled BUN Cancelled Creatinine Cancelled Estimated GFR Cancelled BUN/Creatinine Ratio Cancelled Glucose Cancelled Calcium Cancelled Magnesium Total Bilirubin AST ALT Alkaline Phosphatase Total Creatine Kinase Troponin I B-Natriuretic Peptide Total Protein Albumin Globulin Albumin/Globulin Ratio Triglycerides Cholesterol LDL Cholesterol, Calc HDL Cholesterol Nasal Screen MRSA (PCR) Negative for mrsa 01/07/18 01/07/18 01/07/18 11:15 11:15 11:15 WBC RBC Hgb Hct MCV MCH MCHC RDW Plt Count Neut % (Auto) Lymph % (Auto) [place] % (Auto) Eos % (Auto) Baso % (Auto) Total Counted Seg Neutrophils % Band Neutrophils % Lymphocytes % (Manual) Monocytes % (Manual) Eosinophils % (Manual) Metamyelocytes % Neutrophils # (Manual) Toxic Granulation Dohle Bodies Platelet Estimate RBC Morphology D-Dimer 2789 H Sodium 126 L Potassium 3.4 Chloride 95 L Carbon Dioxide 24 BUN 23 H Creatinine 0.90 Estimated GFR > 60.0 BUN/Creatinine Ratio 25.6 H Glucose 106 Calcium 8.0 L Magnesium Total Bilirubin AST ALT Alkaline Phosphatase Total Creatine Kinase 3028 H Troponin I 0.239 H* B-Natriuretic Peptide Total Protein Albumin Globulin Albumin/Globulin Ratio Triglycerides Cancelled 93 Cholesterol Cancelled 83 L LDL Cholesterol, Calc Cancelled 37 HDL Cholesterol Cancelled 27 L Nasal Screen MRSA (PCR) 01/08/18 01/08/18 01/08/18 06:32 06:32 06:32 WBC 5.6 D RBC 4.45 Hgb 13.9 Hct 40.6 MCV 91.2 MCH 31.1 MCHC 34.1 RDW 15.0 H Plt Count 41 L Neut % (Auto) Lymph % (Auto) [place] % (Auto) Eos % (Auto) Baso % (Auto) Total Counted 100 Seg Neutrophils % 81.0 H D Band Neutrophils % 10.0 H Lymphocytes % (Manual) 4.0 L Monocytes % (Manual) 5.0 Eosinophils % (Manual) Metamyelocytes % Neutrophils # (Manual) 5096 Toxic Granulation Present H Dohle Bodies 1+ H Platelet Estimate RBC Morphology Not Reportable D-Dimer Sodium 127 L Potassium 3.6 Chloride 98 Carbon Dioxide 19 L BUN 30 H Creatinine 0.90 Estimated GFR > 60.0 BUN/Creatinine Ratio 33.3 H Glucose 117 H Calcium 8.4 Magnesium 2.3 Total Bilirubin 0.4 AST 111 H ALT 76 H Alkaline Phosphatase 46 Total Creatine Kinase 472 H D Troponin I 0.222 H* B-Natriuretic Peptide 455.0 H Total Protein 4.9 L Albumin 2.3 L Globulin 2.6 Albumin/Globulin Ratio 0.9 L Triglycerides Cholesterol LDL Cholesterol, Calc HDL Cholesterol Nasal Screen MRSA (PCR) Assessment & Plan (1) Atrial fibrillation with RVR: Problem details: patient continues to have rapid atrial fibrillation despite cardioversion. Cardizem drip discontinued, off metoprolol given hypotension. Will start amiodarone today Current visit: Yes Status: Acute (2) Elevated troponin: Problem details: Will trend troponins. She will likely need a myocardial perfusion study before discharge Will check troponins, start baby asa for now Current visit: Yes Status: Acute (3) Acute UTI: Problem details: continue ceftriaxone, urine appears to be gram negative kassandra Klebsiella Pneumonia identified, sensitive to ceftriaxone Current visit: Yes Status: Acute (4) Hyponatremia: Problem details: Saline for now given recent diarrhea. Will follow Current visit: Yes Status: Acute (5) Thrombocytopenia: Problem details: No heparin, Will place SCD's will follow daily Etiology unclear, patient presented with thrombocytopena? secondary to anastrozole or other medications? will continue to follow. No heparin at this time Current visit: Yes Status: Acute (6) Left leg swelling: Problem details: Duplex of lower extremity ordered. Will check D- Dimer Given history of Metastatic Breast Ca, if negative consider CT Angio to r/o PE given new onset of rapid atrial fibrillation Current visit: Yes Status: Acute (7) Metabolic acidosis: Problem details: Will start Lactated Ringers for now Current visit: Yes Status: Acute
[2018-01-08] MEDS: LACTATED RINGERS 1,000 ML 150 ML IV ×2 (11:14→18:00)
[2018-01-08] MEDS: POTASSIUM CHLORIDE 20 MEQ TAB 40 MEQ PO (12:27)
--- NOTE | 2018-01-08 12:28 | PM.CN ---
History of Present Illness Date Patient Seen: 01/08/18 Time Patient Seen: 12:28 Chief complaint: DIARRHEA,FEVER Reason for consult: Rapid atrial fibrillation and hypotension Requesting provider: Isabel Hodges Narrative: Patient is a 72-year-old female without any previous documented cardiac history by family report except for a known LBBB and a history of syncope in August with an event monitor that apparently was unrevealing. She has been followed by a study abroad coordinator in the [facility] and was vacationing on [facility] when she developed diarrhea, fever, and abdominal cramping with diffuse muscular discomfort 5 days prior to presentation. She was seen at the [facility] and was found to be in rapid atrial fibrillation and was transported to [facility] where she was found to have rates in the 100-150 range with blood pressures in the 90s. Her potassium was 3.6 with mildly elevated troponin at 0.27 and she had evidence for a urinary tract infection. Because of her tachycardia and hypotension, cardioversion was attempted and transiently successful in converting her to sinus rhythm but with prompt reversion back to atrial fibrillation. She was subsequently admitted and was started on IV diltiazem and metoprolol 25 mg q.6 hours with some improvement in her heart rate although with limiting hypotension in the 70s and 80s. Her troponin peaked at 0.33 and subsequently declined down to 0.22 and her LFTs were noted to be moderately elevated [place] [address]. Her IV diltiazem had to be held because the blood pressure in the 70s and an echocardiogram was obtained yesterday which I have personally reviewed and shows hyperdynamic left ventricular systolic function with an EF of 75-80% with a dyssynchronous contraction pattern but no obvious wall motion abnormalities. There is moderately severe concentric LVH with slightly increased echo reflectance of the myocardium. There is moderate mitral annular calcification with moderate systolic anterior motion of the anterior leaflet of the mitral valve producing significant mitral regurgitation but otherwise the mitral valve leaflets appear normal. Right ventricular size and function appear to be normal and there is no evidence for significant pulmonary hypertension. There is a suggestion of significant left ventricular outflow tract or intracavitary obstruction. On the basis of this, I was contacted and I recommended a vigorous hydration of the patient and initiation of oral amiodarone and IV heparin. With this, the patient's heart rates have come down to around 100 to 110 and blood pressures have improved into the 80s and 90s. She remains quite somnolent and does not provide many details most of the history is gleaned from her family. She apparently has not had any previous history of any arrhythmia or other cardiac issues except as above. She has had intermittent pedal edema, particularly when traveling which was prominent over the past week but this is not unusual for her. She currently states she feels improved with less diarrhea and less diffuse pain. She denies any history of hyperlipidemia, hypertension, or diabetes. She smoked approximately 1 pack per day for 15 years but stopped around 1984. There is no family history of any concerning heart disease. Further medical history of note include known metastatic breast cancer for which she had a mastectomy 1 year ago and had peptic ulcer disease with evidence of GI blood loss in August 2017 but none since then. Her ECG on presentation showed a wide complex, irregular tachycardia at 175 ppm consistent with atrial fibrillation with LBBB. Following cardioversion, there clearly is P-waves identifiable with a similar QRS morphology with LBBB. ECG from yesterday again shows rapid atrial fibrillation around 149 bpm with LBBB. 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 She has a history of alcohol abuse but has been sober for the last 10 years. Meds Home Medications Medication Instructions Recorded Confirmed Type anastrozole 1 mg PO DAILY 01/06/18 01/06/18 History furosemide 40 mg PO PRN PRN 01/06/18 01/06/18 History gabapentin 600 mg PO TID 01/06/18 01/06/18 History loperamide [Imodium A-D] 2 mg PO BID PRN 01/06/18 01/06/18 History meloxicam 15 mg PO DAILY 01/06/18 01/06/18 History omeprazole 20 mg PO DAILY 01/06/18 01/06/18 History Allergies Allergy/AdvReac Type Severity Reaction Status Date / Time iodine Allergy Mild Rash Verified 01/06/18 18:55 NSAIDS (Non-Steroidal AdvReac Intermediate Verified 01/06/18 18:55 Anti-Inflamma Review of Systems Review of Systems Review of systems was attempted but was unobtainable because of the patient's somnolent nature. Exam Vital Signs (past 8 hours): - 01/08/18 04:45 01/08/18 05:45 01/08/18 07:15 Temperature 99.1 F Pulse Rate 88 105 H 116 H Respiratory Rate 16 16 Blood Pressure 88/48 L 75/50 L 77/45 L Pulse Oximetry 97 96 01/08/18 08:10 01/08/18 08:39 01/08/18 09:21 Temperature 98.3 F 98.2 F Pulse Rate 112 H 116 H Respiratory Rate 15 17 Blood Pressure 78/51 L 71/50 L Pulse Oximetry 95 98 97 01/08/18 10:11 01/08/18 10:34 01/08/18 12:00 Temperature 97.4 F L 98 F Pulse Rate 117 H 113 H Respiratory Rate 17 20 Blood Pressure 74/52 L 99/53 L 87/57 L Pulse Oximetry 96 96 Oxygen Delivery Method Room Air Oxygen Flow Rate 0 Narrative Exam Narrative: Summary, moderately obese female who does not open her eyes and answers questions with only 1 word answers, who complains of diffuse pain with any motion. HR is currently 104 with a BP of 89/67 and O2 saturation of 97%. Skin: Warm and dry HEENT: Eyes are closed. New Lungs: Clear bilaterally to auscultation and she is unable to sit up for exam. CV: Mildly rapid irregularly irregular rhythm with a 3/6 holosystolic murmur at the apex with only a minimal murmur at the sternal border. There is no JVD. Carotid and femoral pulses are 2+ with brisk normal upstroke. Dorsalis pedis pulses are 2+ bilaterally and posterior tibial pulses are nonpalpable. Abdomen: Moderately obese but nondistended nontender without any palpable hepatosplenomegaly. Normal bowel tones are present without any bruits. : Hanna catheter in place. Extremities: Warm with mild nonpitting edema. Neuro: Grossly intact but sedated. Psych: Somnolent with little interaction. Objective Labs Result Diagrams: 01/08/18 06:32 01/08/18 06:32 Labs: Laboratory Results - last 24 hr 01/07/18 01/08/18 01/08/18 10:00 06:32 06:32 WBC 5.6 D RBC 4.45 Hgb 13.9 Hct 40.6 MCV 91.2 MCH 31.1 MCHC 34.1 RDW 15.0 H Plt Count 41 L Total Counted 100 Seg Neutrophils % 81.0 H D Band Neutrophils % 10.0 H Lymphocytes % (Manual) 4.0 L Monocytes % (Manual) 5.0 Neutrophils # (Manual) 5096 Toxic Granulation Present H Dohle Bodies 1+ H Platelet Estimate RBC Morphology Not Reportable Sodium 127 L Potassium 3.6 Chloride 98 Carbon Dioxide 19 L BUN 30 H Creatinine 0.90 Estimated GFR > 60.0 BUN/Creatinine Ratio 33.3 H Glucose 117 H Calcium 8.4 Magnesium Total Bilirubin 0.4 AST 111 H ALT 76 H Alkaline Phosphatase 46 Total Creatine Kinase 472 H D Troponin I 0.222 H* B-Natriuretic Peptide 455.0 H Total Protein 4.9 L Albumin 2.3 L Globulin 2.6 Albumin/Globulin Ratio 0.9 L Nasal Screen MRSA (PCR) Negative for mrsa 01/08/18 06:32 WBC RBC Hgb Hct MCV MCH MCHC RDW Plt Count Total Counted Seg Neutrophils % Band Neutrophils % Lymphocytes % (Manual) Monocytes % (Manual) Neutrophils # (Manual) Toxic Granulation Dohle Bodies Platelet Estimate RBC Morphology Sodium Potassium Chloride Carbon Dioxide BUN Creatinine Estimated GFR BUN/Creatinine Ratio Glucose Calcium Magnesium 2.3 Total Bilirubin AST ALT Alkaline Phosphatase Total Creatine Kinase Troponin I B-Natriuretic Peptide Total Protein Albumin Globulin Albumin/Globulin Ratio Nasal Screen MRSA (PCR) Assessment & Plan Plan: Assessment/Plan Narrative: 1. 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 Given the absence of any previous apparent cardiac history except her conduction abnormality, I suspect that her diarrhea and urinary tract infection caused a dehydrated state. With this, she had reduction of left ventricular volumes and with probable LVH, she developed an outflow tract or intracavitary obstruction with resultant mitral regurgitation. Given this, the mainstays of treatment would be vigorous hydration to increase left ventricular volumes and heart rate control to produce less obstruction. Given this, I would continue with vigorous IV fluids and continued metoprolol dosing as her blood pressure will tolerate, augmented with amiodarone for further heart rate reduction. Her potassium should be maintained greater than 4.0 and her magnesium level greater than 2.0. I would continue her with IV heparin although observing for any evidence for recurrent GI blood loss given her history. I suspect that she will improve hemodynamically with these maneuvers and she may well convert back to sinus rhythm with amiodarone in which case this can be discontinued. In the absence of that, I would attempt heart rate control with metoprolol and amiodarone and initiate anticoagulation with Eliquis. Given the uncertain duration of her atrial fibrillation, I am reluctant to pursue electrocardioversion at this point and suspect she can be discharged when her other medical conditions are adequately treated and she can follow up with her study abroad coordinator in the [facility] for an outpatient cardioversion in 3 to 4 weeks. 2. Mitral regurgitation likely a result of her outflow tract obstruction and systolic anterior motion of her mitral valve. Hopefully, this will improve with hydration and beta blockade. She will require if repeat echocardiogram in several months to re-evaluate this. 3. LVH with possible increased echo reflectance. This raises a concern for possible infiltrative process such as amyloidosis but I think further evaluation of this can be deferred to her primary study abroad coordinator. 4. Abnormal troponins. I suspected this is a manifestation of her rapid rate, in conjunction with her hypotension and outflow tract obstruction. At some point, an ischemic evaluation should be pursued although can likely be deferred to the outpatient setting unless she develops more concerning features for underlying ischemia. 5. Abnormal LFTs and thrombocytopenia. Likely manifestation of her infectious process. These should be followed given her amiodarone. 6. History of breast cancer. Recommendations: 1. Increase amiodarone to 400 mg t.i.d. for 2 days, then amiodarone 200 mg b.i.d. while an inpatient unless she converts to sinus rhythm at which time it can be discontinued. She should have amiodarone 200 mg b.i.d. for 1 week and then 200 mg daily thereafter. 2. Continue with metoprolol and advance as her blood pressure allows. 3. Continue IV heparin but observing for any GI blood loss. If she fails to convert, I would transition her to Eliquis with follow-up with her outpatient study abroad coordinator for consideration of cardioversion. 4. The patient should have a repeat echocardiogram in several months when she has resolved her atrial fibrillation and outflow tract obstruction. 5. Continue to treat her underlying infectious processes. 6. I will have Dr. York look in on the patient tomorrow to assess her progress. I spent a total of 1 hr and 37 min reviewing the patient's medical record, interviewed and examined the patient, and from the patient's family's questions, reviewing her echocardiogram and coordinating her care.
[2018-01-08] MEDS: GABAPENTIN 600 MG TABLET PO (14:48)
--- NOTE | 2018-01-08 17:22 | PC.NURSE ---
Addendum entered by Ambreen Syed R.N. 01/08/18 22:34: 0 - 2nd 500cc bolus complete. BP 80/60 (69) HR 95, Labs pending. Original Note: Addendum entered by Ambreen Syed R.N. 01/08/18 21:01: 1999 - 500cc bolus initated per MD order. Pt LS with fine crackles at the bases and diminshed throughout. 2L O2 97%. 2049 - Bolus complete. BP 93/45 MAP 61 HR 109. MD notified. LS unchanged from prior assessment. 2nd 500cc bolus initiated. Lab draw via PICC. UA sent. Original Note: Addendum entered by Ambreen Syed R.N. 01/08/18 17:32: Pt also reports feeling somewhat short of breath. Sats remain >92% however placed on 2L NC for comfort. MD aware. Original Note: Pt drowsy, oriented only to self. Hr 110-120 with occasional burst to 130's. SBP low 90's. Dr. Hodges aware. Discussed plan of care. Notify MD if SBP sustains >95 and tachycardia persists, MD will order Metoprolol when BP tolerates. Lactate drawn from PICC. Family updated. Call light in reach.
[2018-01-08 18:44] LABS: Lactate (Lactic Acid) 1.5 mmol/L (0.7-2.1)
[2018-01-08 22:18] LABS: TSH w/ Reflex to FT4 0.52 uIU/mL (0.47-4.68)
[2018-01-09] VITALS (27 sets, daily range): BP systolic 82–125; BP diastolic 42–74; PULSE 70–97; RESP 14–81; TEMP 36.7–37.1; O2SAT 93–100; BMI 32.0
--- NOTE | 2018-01-09 | DI.CT.S_ITS ---
PROCEDURE: CT HEAD/BRAIN WO CON INDICATIONS: evaluate for worsening level of consciousness. R/O Bleed TECHNIQUE: Noncontrast 4.5 mm thick angled axial sections acquired from the foramen magnum to the vertex, with coronal and sagittal reformats. For radiation dose reduction, the following was used: automated exposure control, adjustment of mA and/or kV according to patient size. COMPARISON: None. FINDINGS: Image quality: Excellent. CSF spaces: Basal cisterns are patent. No extra-axial fluid collections. The ventricles are symmetric in size and shape. There is mild cerebral volume loss, with resultant ventricular and sulcal prominence. Brain: No intracranial hemorrhage, mass, or mass effect. A small focal hypodensity in the right cerebral hemisphere likely represents sequelae of a prior lacunar infarct. There are subcortical, periventricular and deep white matter hypodensities consistent with mild chronic small vessel ischemic changes. There is intracranial internal carotid artery atherosclerosis. Skull and face: Calvarium and visualized facial bones appear intact, without suspicious lesions. Sinuses: Visualized sinuses and mastoids are clear. IMPRESSION: 1. No definite acute intracranial abnormality. 2. Small hypodensity in the right cerebellar hemisphere likely represents sequela from a prior lacunar infarct. 3. Mild chronic white matter small vessel ischemic changes and cerebral volume loss. Dictated by: Lele Hdz M.D. on 01/09/2018 at 12:54 Approved by: Lele Hdz M.D. on 01/09/2018 at 12:59
[2018-01-09 02:52] LABS: Vitamin B12 > 1000 pg/mL (239-931)
[2018-01-09] MEDS: LACTATED RINGERS 1,000 ML 150 ML IV ×2 (02:55→08:44)
[2018-01-09 05:27] LABS: Add Manual Diff / Slide Review NO; Basophils Percent Auto 0.3 % (0-2); Eosinophils Percent Auto 1.3 % (2-4); Hematocrit 39.1 % (36-46); Hemoglobin 13.1 g/dL (12.0-16.0); Lymphocytes Percent Auto 5.4 % (25-40); Mean Corpuscular HGB Conc 33.5 % (30-36); Mean Corpuscular Hemoglobin 30.9 PG (26-34); Monocytes Percent Auto 14.2 % (3-14); Neutrophils Absolute Auto 6300 /uL (3000-5900); Neutrophils Percent Auto 78.8 % (50-75); Platelet Count 41 X10^3/uL (150-400); Red Blood Cell Count 4.25 X10^6/uL (4.0-5.2)
[2018-01-09 05:42] LABS: Alanine Aminotransferase 61 IU/L (9-52); Albumin 2.1 g/dL (3.5-5.0); Albumin Globulin Ratio 0.8 (1.0-2.8); Alkaline Phosphatase 58 U/L (38-126); Aspartate Aminotransferase 61 IU/L (14-36); BUN Creatinine Ratio 34.4 (6-22); Bilirubin Total 0.5 mg/dL (0.2-1.3); Blood Urea Nitrogen 31 mg/dL (7-17); Calcium 8.4 mg/dL (8.4-10.2); Carbon Dioxide 21 mmol/L (22-32); Chloride 103 mmol/L (98-107); Creatine Kinase 86 U/L (30-135); Estimated Glomerular Filt Rate > 60.0 mL/min (>60); Globulin 2.5 g/dL (1.7-4.1); Glucose 133 mg/dL (80-110); HEMOLYSIS < 15 (0-50); Magnesium 2.2 mg/dL (1.6-2.3); Potassium 3.7 mmol/L (3.4-5.1); Sodium 132 mmol/L (137-145); Total Protein 4.6 g/dL (6.3-8.2)
[2018-01-09 05:56] LABS: Troponin I 0.187 ng/mL (0.01-0.034)
[2018-01-09] MEDS: AMIODARONE 200 MG TABLET 400 MG PO ×3 (08:45→20:04)
[2018-01-09] MEDS: CEFTRIAXONE 1 GM/50 ML FROZ.PIGGY IV (08:46)
[2018-01-09] MEDS: GABAPENTIN 600 MG TABLET PO (08:46)
[2018-01-09] MEDS: HYDROCODONE/ACET 5/325 TABLET 1 TAB PO (10:44)
--- NOTE | 2018-01-09 12:36 | PM.PN.1 ---
Subjective Date Patient Seen: 01/09/18 Interval history: Patient is arousable but responses sluggish. At present does not appears to be in significant distress. In summary Patient is a 72-year-old female without any previous documented cardiac history by family report except for a known LBBB and a history of syncope in August with an event monitor that apparently was unrevealing. She has been followed by a building construction contractor in the [facility] and was vacationing on [facility] when she developed diarrhea, fever, and abdominal cramping with diffuse muscular discomfort 5 days prior to presentation. She was seen at the [facility] and was found to be in rapid atrial fibrillation and was transported to [facility] in January 07, 2018 where she was found to have rates in the 100-150 range with blood pressures in the 90s. Her potassium was 3.6 with mildly elevated troponin at 0.27 and she had evidence for a urinary tract infection. Because of her tachycardia and hypotension, cardioversion was attempted and transiently successful in converting her to sinus rhythm but with prompt reversion back to atrial fibrillation. She was subsequently admitted and was started on IV diltiazem and metoprolol 25 mg q.6 hours with some improvement in her heart rate although with limiting hypotension in the 70s and 80s. Her troponin peaked at 0.33 and subsequently declined down to 0.22 and her LFTs were noted to be moderately elevated [place] [id number]. Her IV diltiazem had to be held because the blood pressure in the 70s and an echocardiogram was obtained yesterday which showed hyperdynamic left ventricular systolic function with an EF of 75-80% with a dyssynchronous contraction pattern but no obvious wall motion abnormalities. There is moderately severe concentric LVH with slightly increased echo reflectance of the myocardium. There is moderate mitral annular calcification with moderate systolic anterior motion of the anterior leaflet of the mitral valve producing significant mitral regurgitation but otherwise the mitral valve leaflets appear normal. Right ventricular size and function appear to be normal and there is no evidence for significant pulmonary hypertension. There is a suggestion of significant left ventricular outflow tract or intracavitary obstruction. On the basis of this, Dr. Granados was contacted and he recommended a vigorous hydration of the patient and initiation of oral amiodarone and IV heparin. With this, the patient's heart rates have come down to around 100 to 110 and blood pressures have improved into the 80s and 90s. Patient was seen by Dr. Granados yesterday. Exam Vital Signs (past 8 hours): - 01/09/18 05:00 01/09/18 06:00 01/09/18 07:43 Temperature 98.5 F Pulse Rate 83 83 84 Respiratory Rate 20 21 24 Blood Pressure 94/62 93/70 106/52 L Pulse Oximetry 98 98 96 01/09/18 08:00 01/09/18 09:00 01/09/18 10:00 Temperature Pulse Rate 93 H 94 H Respiratory Rate 26 H 22 Blood Pressure 107/58 L 111/71 Pulse Oximetry 97 96 97 Oxygen Delivery Method Room Air Oxygen Flow Rate 2 Const Other: arousable but sluggish response Neck Other: No obvious JVD Chest Other: No rash Resp Other: Decreased air entry at the bases, no obvious crepitation or rhonchi Cardio Other: S1 variable, P2 does not appears to loud, grade 2 x 6 soft diffuse ejection systolic murmur, no S3 no S4 GI Other: No obvious pulsatile mass or hepatosplenomegaly Neuro Other: Could not perform details ACCOUNT SERVICE ASSOCIATE examination Extrem Other: Bilateral 1+ pitting edema which according to the daughter she always have it. Objective Labs Result Diagrams: 01/09/18 05:00 01/09/18 05:00 Labs: Laboratory Results - last 24 hr 01/08/18 01/08/18 01/08/18 17:00 20:35 20:35 WBC RBC Hgb Hct MCV MCH MCHC RDW Plt Count Neut % (Auto) Lymph % (Auto) [place] % (Auto) Eos % (Auto) Baso % (Auto) Neut # (Auto) Sodium Potassium Chloride Carbon Dioxide BUN Creatinine Estimated GFR BUN/Creatinine Ratio Glucose Lactate 1.5 Calcium Magnesium Total Bilirubin AST ALT Alkaline Phosphatase Total Creatine Kinase Troponin I Total Protein Albumin Globulin Albumin/Globulin Ratio Vitamin B12 TSH 0.52 Ur Random Sodium 01/08/18 01/09/18 01/09/18 20:35 05:00 05:00 WBC 8.0 RBC 4.25 Hgb 13.1 Hct 39.1 MCV 92.0 MCH 30.9 MCHC 33.5 RDW 15.0 H Plt Count 41 L Neut % (Auto) 78.8 H Lymph % (Auto) 5.4 L [place] % (Auto) 14.2 H Eos % (Auto) 1.3 L Baso % (Auto) 0.3 Neut # (Auto) 6300 H Sodium 132 L Potassium 3.7 Chloride 103 Carbon Dioxide 21 L BUN 31 H Creatinine 0.90 Estimated GFR > 60.0 BUN/Creatinine Ratio 34.4 H Glucose 133 H Lactate Calcium 8.4 Magnesium 2.2 Total Bilirubin 0.5 AST 61 H ALT 61 H Alkaline Phosphatase 58 Total Creatine Kinase 86 D Troponin I 0.187 H* Total Protein 4.6 L Albumin 2.1 L Globulin 2.5 Albumin/Globulin Ratio 0.8 L Vitamin B12 > 1000 H TSH Ur Random Sodium Assessment & Plan (1) Atrial fibrillation with RVR: Problem details: patient continues to have rapid atrial fibrillation despite cardioversion. Cardizem drip discontinued, off metoprolol given hypotension. Will start amiodarone today Current visit: Yes Status: Acute (2) Mitral valve regurgitation: Current visit: Yes Status: Acute (3) Elevated troponin: Problem details: Will trend troponins. She will likely need a myocardial perfusion study before discharge Will check troponins, start baby asa for now Current visit: Yes Status: Acute (4) Acute UTI: Problem details: continue ceftriaxone, urine appears to be gram negative kassandra Klebsiella Pneumonia identified, sensitive to ceftriaxone Current visit: Yes Status: Acute (5) Diarrhea: Problem details: Will check stool for Cdiff, Culture, O&P Current visit: Yes Status: Acute (6) Thrombocytopenia: Problem details: No heparin, Will place SCD's will follow daily Etiology unclear, patient presented with thrombocytopena? secondary to anastrozole or other medications? will continue to follow. No heparin at this time Current visit: Yes Status: Acute Plan: Assessment/Plan Narrative: Patient has AFib with fast ventricular response in the setting of Klebsiella UTI, profound dehydration with significant diarrhea, fever, muscle ache. On 2D echo patient has hyperdynamic LV function with LVH, suspicion for infiltrative cardiomyopathy, systolic anterior motion resulting in significant mitral regurgitation. No significant pericardial effusion. She was started on amiodarone. Because of thrombocytopenia and she is not on anticoagulation. At present her rate is getting better. Her blood pressure is marginal hence beta-raul was not initiated. She is going to have CT scan of her head today. From cardiac perspective, will recommend Dr. Granados recommendations made yesterday. At this point of time goal is to control ventricular rate. With optimization of volume status, left ventricular cavity size will improve and decreased dynamic LV outflow tract obstruction. Her troponin elevation happened in the setting of tachycardia as well as cardioversion in the emergency room. Her CPK is elevated as well. Will recommend close watch for features of rhabdo. Her liver function test is improving. Platelets still low. Once the blood pressure gets more stabilized, consider tolerable dose of beta-raul. Once platelets got normalized, consider anticoagulation. Will recommend repeat echocardiogram as well as ischemic workup which can be done by her building construction contractor in [place]. Discussed with patient's daughter and son-in-law. They understood. From cardiology perspective, if needs further assistance, this week and Dr. Oswald is on-call at [facility]. Feel free to discuss. Total time spent today at least 40 min with more than 50% time [id number] counseling and coordination of care.
--- NOTE | 2018-01-09 12:51 | P.PN_ITS ---
Subjective Date Patient Seen: 01/09/18 Interval history: Patient is arousable but responses sluggish. At present does not appears to be in significant distress. In summary Patient is a 72-year-old female without any previous documented cardiac history by family report except for a known LBBB and a history of syncope in August with an event monitor that apparently was unrevealing. She has been followed by a dredge operator supervisor in the [facility] and was vacationing on [facility] when she developed diarrhea, fever, and abdominal cramping with diffuse muscular discomfort 5 days prior to presentation. She was seen at the [facility] and was found to be in rapid atrial fibrillation and was transported to [facility] in January 07, 2018 where she was found to have rates in the 100- 150 range with blood pressures in the 90s. Her potassium was 3.6 with mildly elevated troponin at 0.27 and she had evidence for a urinary tract infection. Because of her tachycardia and hypotension, cardioversion was attempted and transiently successful in converting her to sinus rhythm but with prompt reversion back to atrial fibrillation. She was subsequently admitted and was started on IV diltiazem and metoprolol 25 mg q.6 hours with some improvement in her heart rate although with limiting hypotension in the 70s and 80s. Her troponin peaked at 0.33 and subsequently declined down to 0.22 and her LFTs were noted to be moderately elevated with [place] [id number]. Her IV diltiazem had to be held because the blood pressure in the 70s and an echocardiogram was obtained yesterday which showed hyperdynamic left ventricular systolic function with an EF of 75-80% with a dyssynchronous contraction pattern but no obvious wall motion abnormalities. There is moderately severe concentric LVH with slightly increased echo reflectance of the myocardium. There is moderate mitral annular calcification with moderate systolic anterior motion of the anterior leaflet of the mitral valve producing significant mitral regurgitation but otherwise the mitral valve leaflets appear normal. Right ventricular size and function appear to be normal and there is no evidence for significant pulmonary hypertension. There is a suggestion of significant left ventricular outflow tract or intracavitary obstruction. On the basis of this, Dr. Granados was contacted and he recommended a vigorous hydration of the patient and initiation of oral amiodarone and IV heparin. With this, the patient's heart rates have come down to around 100 to 110 and blood pressures have improved into the 80s and 90s. Patient was seen by Dr. Granados yesterday. Exam Vital Signs (past 8 hours): - 01/09/18 05:00 01/09/18 06:00 01/09/18 07:43 Temperature 98.5 F Pulse Rate 83 83 84 Respiratory Rate 20 21 24 Blood Pressure 94/62 93/70 106/52 L Pulse Oximetry 98 98 96 01/09/18 08:00 01/09/18 09:00 01/09/18 10:00 Temperature Pulse Rate 93 H 94 H Respiratory Rate 26 H 22 Blood Pressure 107/58 L 111/71 Pulse Oximetry 97 96 97 Oxygen Delivery Method Room Air Oxygen Flow Rate 2 Const Other: arousable but sluggish response Neck Other: No obvious JVD Chest Other: No rash Resp Other: Decreased air entry at the bases, no obvious crepitation or rhonchi Cardio Other: S1 variable, P2 does not appears to loud, grade 2 x 6 soft diffuse ejection systolic murmur, no S3 no S4 GI Other: No obvious pulsatile mass or hepatosplenomegaly Neuro Other: Could not perform details BUILDING AND GROUNDS SUPERVISOR examination Extrem Other: Bilateral 1+ pitting edema which according to the daughter she always have it. Objective Labs Result Diagrams: 01/09/18 05:00 01/09/18 05:00 Labs: Laboratory Results - last 24 hr 01/08/18 01/08/18 01/08/18 17:00 20:35 20:35 WBC RBC Hgb Hct MCV MCH MCHC RDW Plt Count Neut % (Auto) Lymph % (Auto) [place] % (Auto) Eos % (Auto) Baso % (Auto) Neut # (Auto) Sodium Potassium Chloride Carbon Dioxide BUN Creatinine Estimated GFR BUN/Creatinine Ratio Glucose Lactate 1.5 Calcium Magnesium Total Bilirubin AST ALT Alkaline Phosphatase Total Creatine Kinase Troponin I Total Protein Albumin Globulin Albumin/Globulin Ratio Vitamin B12 TSH 0.52 Ur Random Sodium 01/08/18 01/09/18 01/09/18 20:35 05:00 05:00 WBC 8.0 RBC 4.25 Hgb 13.1 Hct 39.1 MCV 92.0 MCH 30.9 MCHC 33.5 RDW 15.0 H Plt Count 41 L Neut % (Auto) 78.8 H Lymph % (Auto) 5.4 L [place] % (Auto) 14.2 H Eos % (Auto) 1.3 L Baso % (Auto) 0.3 Neut # (Auto) 6300 H Sodium 132 L Potassium 3.7 Chloride 103 Carbon Dioxide 21 L BUN 31 H Creatinine 0.90 Estimated GFR > 60.0 BUN/Creatinine Ratio 34.4 H Glucose 133 H Lactate Calcium 8.4 Magnesium 2.2 Total Bilirubin 0.5 AST 61 H ALT 61 H Alkaline Phosphatase 58 Total Creatine Kinase 86 D Troponin I 0.187 H* Total Protein 4.6 L Albumin 2.1 L Globulin 2.5 Albumin/Globulin Ratio 0.8 L Vitamin B12 > 1000 H TSH Ur Random Sodium Assessment & Plan (1) Atrial fibrillation with RVR: Problem details: patient continues to have rapid atrial fibrillation despite cardioversion. Cardizem drip discontinued, off metoprolol given hypotension. Will start amiodarone today Current visit: Yes Status: Acute (2) Mitral valve regurgitation: Current visit: Yes Status: Acute (3) Elevated troponin: Problem details: Will trend troponins. She will likely need a myocardial perfusion study before discharge Will check troponins, start baby asa for now Current visit: Yes Status: Acute (4) Acute UTI: Problem details: continue ceftriaxone, urine appears to be gram negative kassandra Klebsiella Pneumonia identified, sensitive to ceftriaxone Current visit: Yes Status: Acute (5) Diarrhea: Problem details: Will check stool for Cdiff, Culture, O&P Current visit: Yes Status: Acute (6) Thrombocytopenia: Problem details: No heparin, Will place SCD's will follow daily Etiology unclear, patient presented with thrombocytopena? secondary to anastrozole or other medications? will continue to follow. No heparin at this time Current visit: Yes Status: Acute Plan: Assessment/Plan Narrative: Patient has AFib with fast ventricular response in the setting of Klebsiella UTI , profound dehydration with significant diarrhea, fever, muscle ache. On 2D echo patient has hyperdynamic LV function with LVH, suspicion for infiltrative cardiomyopathy, systolic anterior motion resulting in significant mitral regurgitation. No significant pericardial effusion. She was started on amiodarone. Because of thrombocytopenia and she is not on anticoagulation. At present her rate is getting better. Her blood pressure is marginal hence beta- raul was not initiated. She is going to have CT scan of her head today. From cardiac perspective, will recommend Dr. Granados recommendations made yesterday. At this point of time goal is to control ventricular rate. With optimization of volume status, left ventricular cavity size will improve and decreased dynamic LV outflow tract obstruction. Her troponin elevation happened in the setting of tachycardia as well as cardioversion in the emergency room. Her CPK is elevated as well. Will recommend close watch for features of rhabdo. Her liver function test is improving. Platelets still low. Once the blood pressure gets more stabilized, consider tolerable dose of beta-raul. Once platelets got normalized, consider anticoagulation. Will recommend repeat echocardiogram as well as ischemic workup which can be done by her dredge operator supervisor in [place]. Discussed with patient's daughter and son-in- law. They understood. From cardiology perspective, if needs further assistance , this week and Dr. Oswald is on-call at [facility]. Feel free to discuss. Total time spent today at least 40 min with more than 50% time [id number] counseling and coordination of care.
--- NOTE | 2018-01-09 15:37 | CM.DPC ---
DCP: continued. Case received,EMR reviewed. Cardiology team is consulting. Dr. Samuel now on as hospitalist. Family have been at bedside to discuss POC with providers. Likely pt will go home and followup with her slate cutter. DCP team to continue to follow.
[2018-01-09 15:54] LABS: Sodium Urine Random < 5 mmol/L (30-90)
[2018-01-09] MEDS: NYSTATIN 500000 UNIT PO ×2 (16:31→20:04)
--- NOTE | 2018-01-09 19:01 | PC.NURSE ---
Addendum entered by Ambreen Syed R.N. 01/09/18 20:29: 2015 - Pt continues to be very lethargic. Awakens to repeated stimuli. High soto's for PO intake. Able to take PO meds in carrier. Significant generalized weakness. Original Note: notified that SBP is >100 for multiple checks. Hanna with approximately 350cc. Order obtain to heplock IV. Pt able to eat a small portion of her meal, also drank a full ensure. Positioned for comfort. Extremities elevated r/t edema. Reinforced call light use.
--- NOTE | 2018-01-09 19:44 | PM.PN.1 ---
Subjective Date Patient Seen: 01/09/18 Time Patient Seen: 06:44 Interval history: History of present illness Follow-up on patient with recent rapid atrial fibrillation and Klebsiella urinary tract infection and severe diastolic heart failure Review of systems Patient denies having any chest pain or shortness of breath or nausea this morning Exam Vital Signs (past 8 hours): - 01/09/18 12:00 01/09/18 13:00 01/09/18 16:00 Temperature 98.7 F 98.7 F Pulse Rate 78 70 Respiratory Rate 15 14 19 Blood Pressure 89/60 L 93/73 125/74 Pulse Oximetry 98 98 99 01/09/18 16:30 Temperature Pulse Rate Respiratory Rate Blood Pressure Pulse Oximetry 94 Oxygen Delivery Method Room Air Oxygen Flow Rate 2 Narrative Exam Narrative: General appearance patient is noted in a.m. today a bit lethargic but arousable no apparent distress Psychiatric oriented to self only patient was cooperative following commands affect appropriate Skin no rashes or lesions noted nonjaundiced turgor normal Respiratory fairly clear to auscultation no significant wheezes or crackles Cardiovascular irregular regular rhythm rate of about 80 per min. Prominent systolic murmur best heard over the mitral valve area with radiation to the left axilla Gastrointestinal fairly soft nontender positive bowel sounds no bruits no organomegaly noted Neurologic no focal neurologic changes cranial nerves 2-12 grossly intact Objective Labs Result Diagrams: 01/09/18 05:00 01/09/18 05:00 Labs: Laboratory Results - last 24 hr 01/08/18 01/08/18 01/08/18 20:35 20:35 20:35 WBC RBC Hgb Hct MCV MCH MCHC RDW Plt Count Neut % (Auto) Lymph % (Auto) [place] % (Auto) Eos % (Auto) Baso % (Auto) Neut # (Auto) Sodium Potassium Chloride Carbon Dioxide BUN Creatinine Estimated GFR BUN/Creatinine Ratio Glucose Calcium Magnesium Total Bilirubin AST ALT Alkaline Phosphatase Total Creatine Kinase Troponin I Total Protein Albumin Globulin Albumin/Globulin Ratio Vitamin B12 > 1000 H TSH 0.52 Ur Random Sodium < 5 L 01/09/18 01/09/18 05:00 05:00 WBC 8.0 RBC 4.25 Hgb 13.1 Hct 39.1 MCV 92.0 MCH 30.9 MCHC 33.5 RDW 15.0 H Plt Count 41 L Neut % (Auto) 78.8 H Lymph % (Auto) 5.4 L [place] % (Auto) 14.2 H Eos % (Auto) 1.3 L Baso % (Auto) 0.3 Neut # (Auto) 6300 H Sodium 132 L Potassium 3.7 Chloride 103 Carbon Dioxide 21 L BUN 31 H Creatinine 0.90 Estimated GFR > 60.0 BUN/Creatinine Ratio 34.4 H Glucose 133 H Calcium 8.4 Magnesium 2.2 Total Bilirubin 0.5 AST 61 H ALT 61 H Alkaline Phosphatase 58 Total Creatine Kinase 86 D Troponin I 0.187 H* Total Protein 4.6 L Albumin 2.1 L Globulin 2.5 Albumin/Globulin Ratio 0.8 L Vitamin B12 TSH Ur Random Sodium Assessment & Plan Plan: Assessment/Plan Narrative: 1) Atrial fibrillation with RVR: Repeated episodes of rapid AFib noted during hospital course. Note patient was unstable clinically in the emergency room setting and underwent cardioversion on day of admission. Crosstie Inspector is consulting on patient. Due to the hypotensive episode the beta-raul was held. Amiodarone was started at recommendation of worm raiser Coumadin anticoagulant therapy started today as requested by worm raiser. Daily INR requested (3) Elevated troponin: Note the troponin elevated during hospital course is trending down. Crosstie Inspector has recommended a myocardial perfusion study before eventual discharge 81 mg dose of aspirin started as cardioprotective measure (4) Acute UTI: Ceftriaxone antibiotic provided. Klebsiella organism identified and sensitive to ceftriaxone. Organism also sensitive to Augmentin which can be provided orally (5) Diarrhea: Note patient admitted with a prior 5 day history of diarrhea before admission Test for C diff colitis requested (6) Thrombocytopenia: Etiology of the low platelet count not entirely clear. No active bleeding identified will continue to monitor Time Spent With Patient Time with patient: Greater than 35 minutes (50 min devoted to the patient today including most multiple visits to bedside)
--- NOTE | 2018-01-09 19:49 | P.PN_ITS ---
Subjective Date Patient Seen: 01/09/18 Time Patient Seen: 06:44 Interval history: History of present illness Follow-up on patient with recent rapid atrial fibrillation and Klebsiella urinary tract infection and severe diastolic heart failure Review of systems Patient denies having any chest pain or shortness of breath or nausea this morning Exam Vital Signs (past 8 hours): - 01/09/18 12:00 01/09/18 13:00 01/09/18 16:00 Temperature 98.7 F 98.7 F Pulse Rate 78 70 Respiratory Rate 15 14 19 Blood Pressure 89/60 L 93/73 125/74 Pulse Oximetry 98 98 99 01/09/18 16:30 Temperature Pulse Rate Respiratory Rate Blood Pressure Pulse Oximetry 94 Oxygen Delivery Method Room Air Oxygen Flow Rate 2 Narrative Exam Narrative: General appearance patient is noted in a.m. today a bit lethargic but arousable no apparent distress Psychiatric oriented to self only patient was cooperative following commands affect appropriate Skin no rashes or lesions noted nonjaundiced turgor normal Respiratory fairly clear to auscultation no significant wheezes or crackles Cardiovascular irregular regular rhythm rate of about 80 per min. Prominent systolic murmur best heard over the mitral valve area with radiation to the left axilla Gastrointestinal fairly soft nontender positive bowel sounds no bruits no organomegaly noted Neurologic no focal neurologic changes cranial nerves 2-12 grossly intact Objective Labs Result Diagrams: 01/09/18 05:00 01/09/18 05:00 Labs: Laboratory Results - last 24 hr 01/08/18 01/08/18 01/08/18 20:35 20:35 20:35 WBC RBC Hgb Hct MCV MCH MCHC RDW Plt Count Neut % (Auto) Lymph % (Auto) [place] % (Auto) Eos % (Auto) Baso % (Auto) Neut # (Auto) Sodium Potassium Chloride Carbon Dioxide BUN Creatinine Estimated GFR BUN/Creatinine Ratio Glucose Calcium Magnesium Total Bilirubin AST ALT Alkaline Phosphatase Total Creatine Kinase Troponin I Total Protein Albumin Globulin Albumin/Globulin Ratio Vitamin B12 > 1000 H TSH 0.52 Ur Random Sodium < 5 L 01/09/18 01/09/18 05:00 05:00 WBC 8.0 RBC 4.25 Hgb 13.1 Hct 39.1 MCV 92.0 MCH 30.9 MCHC 33.5 RDW 15.0 H Plt Count 41 L Neut % (Auto) 78.8 H Lymph % (Auto) 5.4 L [place] % (Auto) 14.2 H Eos % (Auto) 1.3 L Baso % (Auto) 0.3 Neut # (Auto) 6300 H Sodium 132 L Potassium 3.7 Chloride 103 Carbon Dioxide 21 L BUN 31 H Creatinine 0.90 Estimated GFR > 60.0 BUN/Creatinine Ratio 34.4 H Glucose 133 H Calcium 8.4 Magnesium 2.2 Total Bilirubin 0.5 AST 61 H ALT 61 H Alkaline Phosphatase 58 Total Creatine Kinase 86 D Troponin I 0.187 H* Total Protein 4.6 L Albumin 2.1 L Globulin 2.5 Albumin/Globulin Ratio 0.8 L Vitamin B12 TSH Ur Random Sodium Assessment & Plan Plan: Assessment/Plan Narrative: 1) Atrial fibrillation with RVR: Repeated episodes of rapid AFib noted during hospital course. Note patient was unstable clinically in the emergency room setting and underwent cardioversion on day of admission. Senior Cognos Developer is consulting on patient. Due to the hypotensive episode the beta- raul was held. Amiodarone was started at recommendation of form carpenter Coumadin anticoagulant therapy started today as requested by form carpenter. Daily INR requested (3) Elevated troponin: Note the troponin elevated during hospital course is trending down. Senior Cognos Developer has recommended a myocardial perfusion study before eventual discharge 81 mg dose of aspirin started as cardioprotective measure (4) Acute UTI: Ceftriaxone antibiotic provided. Klebsiella organism identified and sensitive to ceftriaxone. Organism also sensitive to Augmentin which can be provided orally (5) Diarrhea: Note patient admitted with a prior 5 day history of diarrhea before admission Test for C diff colitis requested (6) Thrombocytopenia: Etiology of the low platelet count not entirely clear. No active bleeding identified will continue to monitor Time Spent With Patient Time with patient: Greater than 35 minutes (50 min devoted to the patient today including most multiple visits to bedside)
[2018-01-09] MEDS: WARFARIN 3 MG TABLET PO (20:03)
[2018-01-10] VITALS (14 sets, daily range): BP systolic 84–124; BP diastolic 47–71; PULSE 60–97; RESP 15–24; TEMP 36.1–37.8; O2SAT 96–100; BMI 31.7
[2018-01-10] MEDS: SODIUM CHLORIDE 0.9% 500 ML IV (03:09)
[2018-01-10 05:34] LABS: INR 1.2 (0.9-1.3)
[2018-01-10 05:38] LABS: Alanine Aminotransferase 63 IU/L (9-52); Albumin 2.1 g/dL (3.5-5.0); Albumin Globulin Ratio 0.8 (1.0-2.8); Alkaline Phosphatase 65 U/L (38-126); Aspartate Aminotransferase 63 IU/L (14-36); Bilirubin Total 0.5 mg/dL (0.2-1.3); Blood Urea Nitrogen 28 mg/dL (7-17); Calcium 8.5 mg/dL (8.4-10.2); Carbon Dioxide 23 mmol/L (22-32); Chloride 106 mmol/L (98-107); Estimated Glomerular Filt Rate > 60.0 mL/min (>60); Globulin 2.5 g/dL (1.7-4.1); Glucose 126 mg/dL (80-110); HEMOLYSIS < 15 (0-50); Potassium 3.5 mmol/L (3.4-5.1); Sodium 134 mmol/L (137-145); Total Protein 4.6 g/dL (6.3-8.2)
--- NOTE | 2018-01-10 07:05 | PC.NURSE ---
NOC Shift: Pt remains lethargic and often times nonresponsive to verbal commands. At times will open eyes to command, tract, will anwer yes,no questions appropriately, and follow commands. Other times pt won't respond at all. VSS, Afib CVR w/large BBB, very audible murmur. Continues to have hypotension w/MAP >60. One 500ml IV NS bolus given for MAP <60. Pt takes po with assist. Remains weak in all extremities w/3+ edema and winces, cries out in pain with the slightest motion or postion change. ICU care.
[2018-01-10] MEDS: AMIODARONE 200 MG TABLET 400 MG PO ×3 (08:28→22:25)
[2018-01-10] MEDS: ACETAMINOPHEN 325 MG TABLET 650 MG PO (08:29)
[2018-01-10] MEDS: GABAPENTIN 600 MG TABLET PO ×3 (08:30→22:25)
[2018-01-10] MEDS: CEFTRIAXONE 1 GM/50 ML FROZ.PIGGY IV (08:31)
[2018-01-10] MEDS: NYSTATIN 500000 UNIT PO ×3 (08:31→22:25)
--- NOTE | 2018-01-10 12:26 | CM.DPC ---
DCP Cont: Went to check on patient this morning, but did not respond, noted confusion. Went ahead and wrote name on her board in her room. Daughter was not in yet to see patient. DCP will continue to assess. Plan is for patient to go home, but is not yet stable. Will be available to offer additional resources if needed when patient gets closer to discharge. Charleen Davey RN/Industrial Registered Nurse
--- NOTE | 2018-01-10 13:57 | CM.DPC ---
DCP Cont: Met with patient's daughter, Dominga. She lives in the [facility] as well, but they were up here renting a vacation home at [place]. Discussed discharge planning, and inquired if she would like a Medicare Choice List for rehab. Daughter knows that her mom may need [facility], but wants to keep her in the [facility] area. Is aware that the cost would be high. Daughter may be calling her primary care doctor Friday. Patient will be working with physical therapy as well, but facility will be dependent upon how patient can transfer. P: DCP continue to assess. Patient may benefit from [facility], but unknown which facility at this time. Charleen Davey RN/Certification And Selection Specialist
--- NOTE | 2018-01-10 15:25 | PT.IIE ---
Current Diagnoses Thrombocytopenia, unspecified (01/07/18) Hypo-osmolality and hyponatremia (01/07/18) Acidosis (01/07/18) Nonrheumatic mitral (valve) insufficiency (01/07/18) Unspecified atrial fibrillation (01/07/18) Other specified soft tissue disorders (01/07/18) Urinary tract infection, site not specified (01/07/18) Tachycardia, unspecified (01/07/18) Diarrhea, unspecified (01/07/18) Abnormal levels of other serum enzymes (01/07/18) Surgical History (Last Reviewed 01/08/18 @ 12:40 by Sai Granados MD) H/O right mastectomy (Acute) Medical History (Last Reviewed 01/08/18 @ 12:40 by Sai Granados MD) History of bleeding ulcers (Acute) Metastatic breast cancer (Acute) Physical Therapy Inpatient Evaluation/Re-Eval M1 PT/OT-IP Prior Functional Status Start: 01/10/18 16:00 Freq: NEEDED Status: Active Protocol: Document 01/10/18 16:01 [facility] (Rec: 01/10/18 16:21 [facility] [id number]) Medical Review Prior Functional Status Medical History Reviewed Yes Diet/Fluid Consistency Clear Liquids Communication Independent. Mobility and Gait Pt did not use a device and was completely independent. Activities of Daily Living and IADL's Completely independent with all ADl's and IADl's and was gardening last week. Social History Household Members none Living Arrangements House Number of Floors (Floors) One Floor Number of Stairs To Enter/Railing? 2 steps and no rails. Home Equipment Front Wheel Walker Four Wheel Walker Straight Cane Additional Social History Comment Pt has equipment from but never had to use for herself for gait. Pt lives in [facility] and daughter lives 4 miles away from her. Pt was visiting with daughter on [facility] and had diarrhea for 5 days and developed a-fib . Head CT scan shows small hypodensity int eh right cerebellar hemisphere likely represents sequela from a prior lacunar infarct. M2 PT-IP Current Condition Start: 01/10/18 16:58 Freq: Status: Active Protocol: Document 01/10/18 15:45 [facility] (Rec: 01/10/18 17:13 [facility] [id number]) Physical Therapy Current Condition Current Condition Evaluation Date 01/10/18 Treatment Diagnosis diarrhea, fever, impaired mobility M3 PT-IP Subjective Start: 01/10/18 16:58 Freq: Status: Active Protocol: Document 01/10/18 15:45 [facility] (Rec: 01/10/18 17:13 [facility] [id number]) Subjective Physical Therapy Visit Type Type Initial Evaluation Visit Start Time 15:25 Visit Stop Time 15:45 Total Visit Minutes 20 Number of REFERRAL NURSE Visits 0 M4 PT-IP Mobility and Gait Start: 01/10/18 16:58 Freq: Status: Active Protocol: Document 01/10/18 15:45 [facility] (Rec: 01/10/18 17:13 [facility] [id number]) PT-Bed Mobility Assessment Rolling Level of Assist Maximal Assistance 2 Person Assistance Supine to Sit Supine to Sit Total Assistance 2 Person Assistance Sit to Supine Sit to Supine Total Assistance 2 Person Assistance Scooting Scooting to Edge of Bed Dependent PT-Transfer Assessment Equipment Transfer Assistive Device Mechanical Lift Transfers Transfer Destination Chair Transfer Technique Mechanical Lift Transfer Ability Level of Assist Total Assistance 2 Person Assistance Comments Mobility Comments Ivonne lift to chair. Pt mainly non-responsive during session . BP 102/60 supine, 119/74 sitting on EOB with assist. M5 PT-IP Objective Assessments Start: 01/10/18 16:58 Freq: Status: Active Protocol: Document 01/10/18 15:45 [facility] (Rec: 01/10/18 17:13 [facility] [id number]) Orientation Orientation/Cognition Level of Alertness Lethargic Safety Awareness Decreased Safety Awareness Comments non-verbal at this time Strength Comments Strength Comments unable to perform any active motion of the bilateral LEs except for toe extension/ flexion M6 PT-IP Treatment Start: 01/10/18 16:58 Freq: Status: Active Protocol: Document 01/10/18 15:45 [facility] (Rec: 01/10/18 17:13 [facility] [id number]) Physical Therapy Treatment Education Education Provided Safety M7 PT-IP Assessment and Plan Start: 01/10/18 16:58 Freq: Status: Active Protocol: Document 01/10/18 15:45 [facility] (Rec: 01/10/18 17:13 [facility] [id number]) PT Summary Assessment and Plan Potential Rehabilitation Potential Fair Status of Condition at Evaluation Unstable Summary Impairments Strength Balance Cognition Bed Mobility Transfers Gait Activity Tolerance Assessment Summary Pt minimally participated in session this date. She was able to lift the RUE to <90 degrees once while sitting on EOB, but requires assistance for this. Pt not able to perform manual muscle testing due to not following commands. Pt is dependent with mobility and requires a Ivonne lift at this time which is well below her prior level of function. Goals Bed Mobility Goal Moderate Assistance Transfer Goal Maximal Assistance Front Wheeled Walker Gait Goal Maximal Assistance Front Wheel Walker Gait Distance 5 ft Frequency of Treatment Frequency Of Treatment Once a Day Treatment Plan Physical Therapy Treatment Plan Bed Mobility Training Transfer Training Gait Training Therapeutic Exercise Balance Retraining Discharge Planning Recommendations To Nursing Amount of Assist Needed Total Assistance Mechanical Lift Discharge Recommendations PT Discharge Recommendations SNF Rehab
--- NOTE | 2018-01-10 16:00 | PM.PN.1 ---
Subjective Date Patient Seen: 01/10/18 Time Patient Seen: 07:38 Interval history: HISTORY OF PRESENT ILLNESS Follow-up on patient with rapid atrial fibrillation episodes during hospital course. Patient started on Coumadin as recommended by the commercial photographer. Patient with elevated troponin during hospital course which has trended down. Recommendation by commercial photographer to do nuclear stress test before eventual discharge Patient noted with severe grade mitral valve regurgitation and severe left atrial enlargement along with severe diastolic heart failure. Note the medications we normally give for severe systolic heart failure that reduce mortality are also typically given for patients with diastolic heart failure. Unfortunately the same medications for diastolic heart failure that are given for systolic heart failure do not reduce the mortality risk. Review of systems Patient a and was able to indicate wound when aroused there is no chest pain there is no sensation of nausea REVIEW OF SYSTEMS Exam Vital Signs (past 8 hours): - 01/10/18 12:08 Temperature 98 F Pulse Rate 81 Respiratory Rate 18 Blood Pressure 114/67 Pulse Oximetry 99 Oxygen Delivery Method Room Air Oxygen Flow Rate 0 Narrative Exam Narrative: General appearance patient is noted in a.m. today still a bit lethargic but is arousable no apparent distress Psychiatric oriented to self only, patient is cooperative, following commands affect appropriate Skin no rashes or lesions noted nonjaundiced turgor normal Respiratory fairly clear to auscultation no significant wheezes or crackles Cardiovascular irregular regular rhythm rate of about 80 per min. Prominent systolic murmur best heard over the mitral valve area with radiation to the left axilla Gastrointestinal fairly soft nontender positive bowel sounds no bruits no organomegaly noted Neurologic no focal neurologic changes cranial nerves 2-12 grossly intact Objective Labs Result Diagrams: 01/09/18 05:00 01/10/18 05:15 Labs: Laboratory Results - last 24 hr 01/10/18 01/10/18 05:15 05:15 PT 13.0 H INR 1.2 Sodium 134 L Potassium 3.5 Chloride 106 Carbon Dioxide 23 BUN 28 H Creatinine 0.80 Estimated GFR > 60.0 BUN/Creatinine Ratio 35.0 H Glucose 126 H Calcium 8.5 Total Bilirubin 0.5 AST 63 H ALT 63 H Alkaline Phosphatase 65 Total Protein 4.6 L Albumin 2.1 L Globulin 2.5 Albumin/Globulin Ratio 0.8 L Assessment & Plan Plan: Assessment/Plan Narrative: 1)Atrial fibrillation with RVR: Repeated episodes of rapid AFib noted during hospital course. Note patient was unstable clinically in the emergency room setting and underwent cardioversion on day of admission. Steno Pool Supervisor is consulting on patient. Due to the hypotensive episode the beta-raul was held. Amiodarone was started at recommendation of commercial photographer Coumadin anticoagulant therapy started 01/09 as requested by commercial photographer. Daily INR requested. Today's INR is 1.2 will give another dose of Coumadin 3 mg today. Recheck INR tomorrow in a.m. (3) Elevated troponin: Note the troponin elevated during hospital course is trending down. Steno Pool Supervisor has recommended a myocardial perfusion study before eventual discharge 81 mg dose of aspirin started as cardioprotective measure (4) Acute UTI: Ceftriaxone antibiotic provided. Klebsiella organism identified and sensitive to ceftriaxone. Organism also sensitive to Augmentin which can be provided orally Once patient more awake. (5) Diarrhea: Note patient admitted with a prior 5 day history of diarrhea before admission Test for C diff colitis requested (6) Thrombocytopenia: Etiology of the low platelet count not entirely clear. No active bleeding identified will continue to monitor Time Spent With Patient Time with patient: Greater than 35 minutes (50 min devoted to the patient today including most multiple visits to bedside) TIME SPENT TO PROVIDE CARE FOR THE PATIENT 25 MIN
--- NOTE | 2018-01-10 16:22 | OT.IP.EVAL ---
Current Diagnoses Thrombocytopenia, unspecified (01/07/18) Hypo-osmolality and hyponatremia (01/07/18) Acidosis (01/07/18) Nonrheumatic mitral (valve) insufficiency (01/07/18) Unspecified atrial fibrillation (01/07/18) Other specified soft tissue disorders (01/07/18) Urinary tract infection, site not specified (01/07/18) Tachycardia, unspecified (01/07/18) Diarrhea, unspecified (01/07/18) Abnormal levels of other serum enzymes (01/07/18) Past Medical History (Last Reviewed 01/08/18 @ 12:40 by Sai Granados MD) History of bleeding ulcers (Acute) Metastatic breast cancer (Acute) Surgical History (Last Reviewed 01/08/18 @ 12:40 by Sai Granados MD) H/O right mastectomy (Acute) Occupational Therapy Inpatient Evaluation/Re-Eval M1 PT/OT-IP Prior Functional Status Start: 01/10/18 16:00 Freq: NEEDED Status: Active Protocol: Document 01/10/18 16:01 [facility] (Rec: 01/10/18 16:21 [facility] [id number]) Medical Review Prior Functional Status Medical History Reviewed Yes Diet/Fluid Consistency Clear Liquids Communication Independent. Mobility and Gait Per pt's daughter, pt did not use a device and was completely independent. Activities of Daily Living and IADL's Completely independent with all ADl's and IADl's and was gardening last week. Social History Household Members none Living Arrangements House Number of Floors (Floors) One Floor Number of Stairs To Enter/Railing? 2 steps and no rails. Home Equipment Front Wheel Walker Four Wheel Walker Straight Cane Additional Social History Comment Pt has equipment from but never had to use for herself for gait. Pt lives in [facility] and daughter lives 4 miles away from her. Pt was visiting with daughter on [facility] and had diarrhea for 5 days and developed a-fib . Head CT scan shows small hypodensity in the right cerebellar hemisphere likely represents sequela from a prior lacunar infarct. M2 OT-IP Current Condition Start: 01/10/18 16:00 Freq: Status: Active Protocol: Document 01/10/18 16:01 [facility] (Rec: 01/10/18 16:21 [facility] [id number]) Occupational Therapy Current Condition Current Condition Evaluation Date 01/10/18 Treatment Diagnosis a-fib, UTI, dehydration, severe heart failure M3 OT- IP Subjective and Pain Start: 01/10/18 16:00 Freq: Status: Active Protocol: Document 01/10/18 16:01 [facility] (Rec: 01/10/18 16:21 [facility] [id number]) OT- Subjective Occupational Therapy Visit Type Type Initial Evaluation Visit Start Time 15:25 Visit Stop Time 15:45 Total Visit Minutes 20 Occupational Therapy Visit Comments Patient Comments Pt able to respond to her name and having difficulty to follow commands and staying alert. OT Pain Assessment Pain When Pain Assessed At Rest Pain Present Pain Present Denied Pain M4 OT- IP ADL's Start: 01/10/18 16:00 Freq: Status: Active Protocol: Document 01/10/18 16: [facility] (Rec: 01/10/18 16:21 [facility] [id number]) OT [id number] General Evaluation Self-Feeding Ability Total Assistance Areas Needing Assistance Drinking From Cup/Glass Comments OT Self-Feeding Comments Pt not able to lift her hands up and hands very swollen and at this time would require 1:1 assist for to drink liquids as currently on clear liquid diet. OT ADL-Grooming Comments OT Grooming Comments Dependent at this time. OT ADL-Dressing Comments OT Dressing Comments Dependent for socks. OT ADL-Toileting Comments OT Toileting Comments Dependent. OT ADL-Bathing Comments OT Bathing Comments Dependent. M6 OT- IP Functional Cognition Start: 01/10/18 16:00 Freq: Status: Active Protocol: Document 01/10/18 16:01 [facility] (Rec: 01/10/18 16:21 [facility] [id number]) Cognitive Factors Limiting Selfcare Function Cognitive Ability Level of Alertness Drowsy Lethargic Patient Orientation Name Attention Span Ability Unable to Focus Unable to Sustain Attention Cognitive Comments Cognitive Assessment Comments Pt able to respond to name 75% of the time and inconsistent to answer one word questions as very drowsy. OT- Vision and Hearing OT- Vision Assessment Vision Assessment Comments Pt's right eye decreased ability to track versus left eye. Pt with increased time able to locate daughter on the left. M7 OT- IP Mobility and Balance Start: 01/10/18 16:00 Freq: Status: Active Protocol: Document 01/10/18 16:01 [facility] (Rec: 01/10/18 16:21 [facility] [id number]) OT- Bed Mobility Assessment Rolling Type of Rolling Roll to Right Level of Assistance Total Assistance 2 Person Assistance Supine to Sit Supine to Sit Assist Total Assistance 2 Person Assistance OT-Transfer Assessment Transfers Transfer Ability Total Assistance 2 Person Assistance Technique Transfer Destination Chair Transfer Technique Mechanical Lift Comments Mobility Comments Pt unable to assist for bed mobility and not able to sit up unsupported and needing MODA to MAX A for support to sit at the edge of the bed. OT- Balance Assessment Sitting Balance and Reactions Static Sitting Balance Ability Poor M8 OT- IP Objective Assessments Start: 01/10/18 16:00 Freq: Status: Active Protocol: Document 01/10/18 16:01 [facility] (Rec: 01/10/18 16:21 [facility] [id number]) OT Strength Comments Strength Comments Pt unable to raise arms up against gravity and arms very swollen. OT-Muscle Tone Assessment Muscle Tone WNL No Comments Muscle Tone Comments Decreased tome throughout BUE at this time. M9 OT- IP Assessment and Plan Start: 01/10/18 16:00 Freq: Status: Active Protocol: Document 01/10/18 16:01 [facility] (Rec: 01/10/18 16:21 [facility] [id number]) OT Summary Assessment and Plan Potential Rehabilitation Potential Fair Analytic Complexity at Evaluation High Summary OT Impairments Pain Range of Motion Strength Balance Coordination Sensation Tone Functional Cognition Functional Mobility Self-Feeding Grooming Dressing Toileting Bathing Toilet Transfers Shower Transfers Progress Towards Goals Slow Progress due to Pain Slow Progress due to Medical Issues Slow Progress due to Activity Tolerance Slow Progress due to Cognition Assessment Summary Pt High complexity due to medical issues, decreased alertness, functional cognition and mobility, and not able to tolerate sitting up on her own at this time and requiring use of bryce lift for transfers. Pt will benefit from skilled rehab when medically stable. Goals Self-Feeding Goal Minimal Assistance Grooming Goal Minimal Assistance Dressing Goal Moderate Assistance Toileting Goal Moderate Assistance Toilet Transfer Goal Moderate Assistance Patient/Caregiver Education Goal Caregiver Independent Assisting Patient Days to Meet Goals 10 Frequency of Treatment Frequency Of Treatment Once a Day Treatment Plan OT Treatment Plan ADL Training Functional Cognition Training Functional Mobility Patient/Family Education Discharge Planning Other Treatment Recommendations and Next To assess BUE, cognition, and Treatment Focus vision more in depth when pt able to follow directions and more alert. Discharge Recommendations OT Discharge Recommendations SNF Rehab Home Equipment Needs To be determined pending disposition.
[2018-01-10 17:42] LABS: Osmolality Urine 480 mosm/kg (220-1300)
[2018-01-10] MEDS: WARFARIN 3 MG TABLET PO (18:09)
--- NOTE | 2018-01-10 19:01 | PC.NURSE ---
faraz note pt has flat affect. Pt rarely opens eyes. Does sometimes nod yes/no. Pt barely assisting PT with mobility. Pt could not support her trunk while sitting at bedside. Required mechanical lift to transfer to chair. Pt leaning to left when in chair, supported with pillows. Pt ate only a few bites of dinner with assist from daughter. Pt in chair with eyes closed. Used mechanical lift to get pt back to bed. Pericare done. Pt has odor in groin area, despite extensive washing.
[2018-01-10] MEDS: HYDROCODONE/ACET 5/325 TABLET 1 TAB PO (22:30)
[2018-01-11] VITALS (9 sets, daily range): BP systolic 92–127; BP diastolic 57–93; PULSE 74–98; RESP 14–20; TEMP 36.4–37.1; O2SAT 95–100
[2018-01-11 05:14] LABS: Alanine Aminotransferase 65 IU/L (9-52); Albumin 2.2 g/dL (3.5-5.0); Albumin Globulin Ratio 0.8 (1.0-2.8); Alkaline Phosphatase 71 U/L (38-126); Aspartate Aminotransferase 65 IU/L (14-36); Bilirubin Total 0.4 mg/dL (0.2-1.3); Blood Urea Nitrogen 27 mg/dL (7-17); Calcium 8.6 mg/dL (8.4-10.2); Carbon Dioxide 24 mmol/L (22-32); Chloride 108 mmol/L (98-107); Estimated Glomerular Filt Rate > 60.0 mL/min (>60); Globulin 2.6 g/dL (1.7-4.1); Glucose 115 mg/dL (80-110); HEMOLYSIS < 15 (0-50); Potassium 3.7 mmol/L (3.4-5.1); Sodium 137 mmol/L (137-145); Total Protein 4.8 g/dL (6.3-8.2)
[2018-01-11] MEDS: GABAPENTIN 600 MG TABLET PO ×2 (08:28→14:45)
[2018-01-11] MEDS: AMIODARONE 200 MG TABLET 400 MG PO ×2 (08:28→14:45)
[2018-01-11] MEDS: ACETAMINOPHEN 325 MG TABLET 650 MG PO (08:28)
[2018-01-11] MEDS: NYSTATIN 500000 UNIT PO ×3 (08:29→21:09)
[2018-01-11] MEDS: PANTOPRAZOLE 20 MG TABLET PO (08:29)
[2018-01-11] MEDS: CEFTRIAXONE 1 GM/50 ML FROZ.PIGGY IV (08:31)
[2018-01-11] MEDS: MELOXICAM 7.5 MG TABLET 15 MG PO (08:32)
[2018-01-11] MEDS: ANASTROZOLE 1 MG TABLET PO (08:32)
--- NOTE | 2018-01-11 11:25 | CM.DPC ---
DCP Cont: Had conversation with son-in-law and daughter, Dominga. Patient is a full hoier, is somulent at times, and in reclining chair in room. Discussed having patient go to local facility, for they could do rehab with her before going back to [facility] or [place]. Let family know that cost could be significant, if she would to be transported there. Family have not chosen a facility there as well. Went ahead and gave Medicare choice list of facilities in local area. Also gave transport information, if patient's family want to call to see how much transport to [place] would cost. Discussed this situation with hospitalist, Dr. Salazar. He is also in agreement that a local rehab stay may be more appropriate for patient, for they may be able to get her stronger to travel in a vehicle. He is still stating that he needs to determine why patient is somulent, and anticipates her being here a while longer. Other family members will be here this afternoon, and this cd technician can converse on this more. P: DCP continue to assess. To be determined on which skilled rehab would be of benefit for patient. Charleen Davey, HILL/Mailing Section Clerk
--- NOTE | 2018-01-11 12:47 | PT.IPTN ---
Current Diagnoses Thrombocytopenia, unspecified (01/07/18) Hypo-osmolality and hyponatremia (01/07/18) Acidosis (01/07/18) Nonrheumatic mitral (valve) insufficiency (01/07/18) Unspecified atrial fibrillation (01/07/18) Other specified soft tissue disorders (01/07/18) Urinary tract infection, site not specified (01/07/18) Tachycardia, unspecified (01/07/18) Diarrhea, unspecified (01/07/18) Abnormal levels of other serum enzymes (01/07/18) Physical Therapy Treatment Note M2 PT-IP Current Condition Start: 01/10/18 16:58 Freq: Status: Active Protocol: Document 01/10/18 15:45 RCC (Rec: 01/10/18 17:13 RCC [id number]) Physical Therapy Current Condition Current Condition Evaluation Date 01/10/18 Treatment Diagnosis diarrhea, fever, impaired mobility M3 PT-IP Subjective Start: 01/10/18 16:58 Freq: Status: Active Protocol: Document 01/11/18 12:31 LJ (Rec: 01/11/18 12:47 LJ [id number]) Subjective Physical Therapy Visit Type Type Treatment Note Visit Start Time 12:00 Visit Stop Time 12:31 Total Visit Minutes 30 Therapy Pain Assessment Pain When Pain Assessed At Rest Pain Present Pain Present Pain Reported Location Generalized Pain Behaviors Facial Grimacing M4 PT-IP Mobility and Gait Start: 01/10/18 16:58 Freq: Status: Active Protocol: Document 01/11/18 12:31 LJ (Rec: 01/11/18 12:47 LJ [id number]) PT-Transfer Assessment Equipment Transfer Assistive Device Mechanical Lift Transfers Transfer Destination Chair Comments Mobility Comments Pt seated in chair in reclining position. Required max a to move LEs and mod a to move UEs. Unable to initiate movement but able to hold and move UEs after movement initiated by therapist. M5 PT-IP Objective Assessments Start: 01/10/18 16:58 Freq: Status: Active Protocol: Document 01/10/18 15:45 RCC (Rec: 01/10/18 17:13 RCC [id number]) Orientation Orientation/Cognition Level of Alertness Lethargic Safety Awareness Decreased Safety Awareness Comments non-verbal at this time Strength Comments Strength Comments unable to perform any active motion of the bilateral LEs except for toe extension/ flexion M6 PT-IP Treatment Start: 01/10/18 16:58 Freq: Status: Active Protocol: Document 01/11/18 12:31 LJ (Rec: 01/11/18 12:47 [id number]) Physical Therapy Treatment Other Treatments Other Treatment Performed Therapist performed PROM on UE and LE extremeties. Pt able to assist with UEs and neck rotation and flexion but unable to assist with LEs M7 PT-IP Assessment and Plan Start: 01/10/18 16:58 Freq: Status: Active Protocol: Document 01/11/18 12:31 (Rec: 01/11/18 12:47 [id number]) PT Summary Assessment and Plan Potential Rehabilitation Potential Fair Status of Condition at Evaluation Unstable Summary Impairments Strength Balance Cognition Bed Mobility Transfers Gait Activity Tolerance Assessment Summary Pt minimally participated in session today and was able to answer simple questions verbally and with head movements. She stated that she had her sassy pants on today and that her favorite flower was violets. Pt able to treasury agent water bottle and partially lift it to her mouth. Goals Bed Mobility Goal Moderate Assistance Transfer Goal Maximal Assistance Front Wheeled Walker Gait Goal Maximal Assistance Front Wheel Walker Gait Distance 5 ft Frequency of Treatment Frequency Of Treatment Once a Day Treatment Plan Physical Therapy Treatment Plan Bed Mobility Training Transfer Training Gait Training Therapeutic Exercise Balance Retraining Discharge Planning Recommendations To Nursing Amount of Assist Needed Total Assistance Mechanical Lift Discharge Recommendations PT Discharge Recommendations SNF Rehab
--- NOTE | 2018-01-11 14:46 | CM.DPC ---
DCP Cont: Had care conference with other daughter, Merna, who lives in [place], as well as Dominga, daughter that lives in [facility]. Went over some transportation agencies. Mentioned that transporting her to [place] can be costly, let alone [facility]. Went over Medicare Choice List. Knows that [facility] is closer, but an hour away from [place]. Is fearful of not knowing how long patient would need to be in rehab before they could transfer her to another facility. Is aware that she will be here for a couple more days in hospital, and is moving upstairs to acute care floor. At this point, patient would need BLS transfer, for she can't sit up in chair for long. Family is aware of this. They will be doing some research on facilities closer to them, and will also be looking into cost of transportation. Daughter, Merna, is concerned about her mom's mentation status, for she has had such a significant change. Gave her phone number of discharge planning so they can be in contact with any other further questions. At this time, will discuss as a family and do some research before making a decision to have patient go to a facility in this area. P: DCP to continue to assess and offer support and resources with family. Continue to communicate with them in order to have an actual plan when patient gets closer to discharge. Charleen Davey RN/Data Conversion Analyst
--- NOTE | 2018-01-11 14:56 | PC.NURSE ---
Day Shift Note Patient's eyes closed majority of shift, periodically opens eyes. Responsiveness appears to be very selective, while speech is limited with staff, pt noted to be conversing with eyes open with family in room. Reports she cannot move any extremities but small independent movements noted (i.e. gripping side rail with turns). Ivonne used to transfer to chair. Afib CVR with BBB, BP stable. 3+ pitting edema to BLEs, 2+ to BUEs. Care management met with family today to discuss discharge options. Daughter assisting patient with meals. Transferred to 227 via recliner at 1455 and report given to Vero ALEJANDRE.
--- NOTE | 2018-01-11 16:17 | PM.PN.1 ---
Subjective Date Patient Seen: 01/11/18 Time Patient Seen: 13:18 Interval history: HISTORY OF PRESENT ILLNESS Follow-up on patient with continued lethargy and diminished cognition. Patient noted with recent rapid AFib along with urinary tract infection. Patient with a complicated medical history with severe mitral valve regurgitation and severe grade diastolic heart failure. Patient was certainly be quite sensitive to Wide shifts in her fluid balance in view of the severe grade diastolic heart failure. Dehydration could easily Gen toward hypotension while a bit too much fluid could put her in a state of acute fluid overload and flash pulmonary edema. REVIEW OF SYSTEMS Patient denies having any chest pain or shortness of breath or nausea Exam Vital Signs (past 8 hours): - 01/11/18 09:46 01/11/18 13:08 01/11/18 15:35 Temperature 97.8 F Pulse Rate 86 79 Respiratory Rate 14 16 Blood Pressure 110/59 L 127/93 H Pulse Oximetry 96 97 98 Oxygen Delivery Method Room Air Oxygen Flow Rate 0 Narrative Exam Narrative: General appearance patient appears a bit more awake today but certainly still altered in her level of consciousness. No apparent distress Psychiatric she is oriented to self and to time. Mood is calm. Somewhat subdued. Respiratory fairly clear to auscultation no wheezes crackles fair air movement Cardiovascular irregular irregular rhythm rate controlled systolic murmur consistent with history of the severe grade mitral valve regurg Gastroenterology nontender positive bowel sounds no masses no distention no bruits no organomegaly Neurology no focal neurologic changes cranial nerves 2-12 grossly intact Objective Labs Result Diagrams: 01/09/18 05:00 01/11/18 04:45 Labs: Laboratory Results - last 24 hr 01/08/18 01/11/18 20:35 04:45 Sodium 137 Potassium 3.7 Chloride 108 H Carbon Dioxide 24 BUN 27 H Creatinine 0.90 Estimated GFR > 60.0 BUN/Creatinine Ratio 30.0 H Glucose 115 H Calcium 8.6 Total Bilirubin 0.4 AST 65 H ALT 65 H Alkaline Phosphatase 71 Total Protein 4.8 L Albumin 2.2 L Globulin 2.6 Albumin/Globulin Ratio 0.8 L Urine Osmolality 480 Assessment & Plan Plan: Assessment/Plan Narrative: 1. Atrial fibrillation with RVR: Repeated episodes of rapid AFib noted during hospital course. Note patient was unstable clinically in the emergency room setting and underwent cardioversion on day of admission. Manager Of Loss Prevention Operations is consulting on patient. Due to the hypotensive episode the beta-raul was held. Amiodarone was started at recommendation of interior design faculty member Coumadin anticoagulant therapy started 01/09 as requested by interior design faculty member. Daily INR requested. Today's INR is 2. Prolonged lethargy and diminished cognition I do not suspect an infectious process has been contributing to these more recent days of lethargy. I note patient on a fairly sizable dose of amiodarone at 400 mg t.i.d. as well as Neurontin at 600 mg t.i.d. as well as narcotic therapy as needed. I am going to decrease the amiodarone dose down considerably and discontinue the Neurontin and the stronger dosing opioids. I will provide tramadol as needed if needed. I am hopeful patient's mentation will improve by tomorrow. (3) Elevated troponin: Note the troponin elevated during hospital course is trending down. Manager Of Loss Prevention Operations has recommended a myocardial perfusion study before eventual discharge 81 mg dose of aspirin started as cardioprotective measure (4) Acute UTI: Ceftriaxone antibiotic provided. Klebsiella organism identified and sensitive to ceftriaxone. Patient with completion of the antibiotic treatment For the UTI. Will discontinue the ceftriaxone (5) Diarrhea: Note patient admitted with a prior 5 day history of diarrhea before admission Test for C diff colitis requested and negative (6) Thrombocytopenia: Etiology of the low platelet count not entirely clear. No active bleeding identified will continue to monitor Time Spent With Patient Time with patient: Greater than 35 minutes (45 min)
--- NOTE | 2018-01-11 16:21 | P.PN_ITS ---
Subjective Date Patient Seen: 01/11/18 Time Patient Seen: 13:18 Interval history: HISTORY OF PRESENT ILLNESS Follow-up on patient with continued lethargy and diminished cognition. Patient noted with recent rapid AFib along with urinary tract infection. Patient with a complicated medical history with severe mitral valve regurgitation and severe grade diastolic heart failure. Patient was certainly be quite sensitive to Wide shifts in her fluid balance in view of the severe grade diastolic heart failure. Dehydration could easily Gen toward hypotension while a bit too much fluid could put her in a state of acute fluid overload and flash pulmonary edema. REVIEW OF SYSTEMS Patient denies having any chest pain or shortness of breath or nausea Exam Vital Signs (past 8 hours): - 01/11/18 09:46 01/11/18 13:08 01/11/18 15:35 Temperature 97.8 F Pulse Rate 86 79 Respiratory Rate 14 16 Blood Pressure 110/59 L 127/93 H Pulse Oximetry 96 97 98 Oxygen Delivery Method Room Air Oxygen Flow Rate 0 Narrative Exam Narrative: General appearance patient appears a bit more awake today but certainly still altered in her level of consciousness. No apparent distress Psychiatric she is oriented to self and to time. Mood is calm. Somewhat subdued. Respiratory fairly clear to auscultation no wheezes crackles fair air movement Cardiovascular irregular irregular rhythm rate controlled systolic murmur consistent with history of the severe grade mitral valve regurg Gastroenterology nontender positive bowel sounds no masses no distention no bruits no organomegaly Neurology no focal neurologic changes cranial nerves 2-12 grossly intact Objective Labs Result Diagrams: 01/09/18 05:00 01/11/18 04:45 Labs: Laboratory Results - last 24 hr 01/08/18 01/11/18 20:35 04:45 Sodium 137 Potassium 3.7 Chloride 108 H Carbon Dioxide 24 BUN 27 H Creatinine 0.90 Estimated GFR > 60.0 BUN/Creatinine Ratio 30.0 H Glucose 115 H Calcium 8.6 Total Bilirubin 0.4 AST 65 H ALT 65 H Alkaline Phosphatase 71 Total Protein 4.8 L Albumin 2.2 L Globulin 2.6 Albumin/Globulin Ratio 0.8 L Urine Osmolality 480 Assessment & Plan Plan: Assessment/Plan Narrative: 1. Atrial fibrillation with RVR: Repeated episodes of rapid AFib noted during hospital course. Note patient was unstable clinically in the emergency room setting and underwent cardioversion on day of admission. Door Glass Installer is consulting on patient. Due to the hypotensive episode the beta- raul was held. Amiodarone was started at recommendation of certified appliance service technician Coumadin anticoagulant therapy started 01/09 as requested by certified appliance service technician. Daily INR requested. Today's INR is 2. Prolonged lethargy and diminished cognition I do not suspect an infectious process has been contributing to these more recent days of lethargy. I note patient on a fairly sizable dose of amiodarone at 400 mg t.i.d. as well as Neurontin at 600 mg t.i.d. as well as narcotic therapy as needed. I am going to decrease the amiodarone dose down considerably and discontinue the Neurontin and the stronger dosing opioids. I will provide tramadol as needed if needed. I am hopeful patient's mentation will improve by tomorrow. (3) Elevated troponin: Note the troponin elevated during hospital course is trending down. Door Glass Installer has recommended a myocardial perfusion study before eventual discharge 81 mg dose of aspirin started as cardioprotective measure (4) Acute UTI: Ceftriaxone antibiotic provided. Klebsiella organism identified and sensitive to ceftriaxone. Patient with completion of the antibiotic treatment For the UTI. Will discontinue the ceftriaxone (5) Diarrhea: Note patient admitted with a prior 5 day history of diarrhea before admission Test for C diff colitis requested and negative (6) Thrombocytopenia: Etiology of the low platelet count not entirely clear. No active bleeding identified will continue to monitor Time Spent With Patient Time with patient: Greater than 35 minutes (45 min)
--- NOTE | 2018-01-11 19:10 | PC.NURSE ---
Dr Samuel ordered Stat INR before 1600. PICC line purple port would not draw back blood, would flush. 2nd RED port did draw back 6 ml for waste, then after putting sterile syringe on port for lab sample, only able to draw back 1 ml. Able to flush NS and heparin with no difficulty. Caps changed. technical applications scientist here to attempt peripheral draw multiple times, could not draw blood, pt with 2-3+ pitting edema to arms/legs. Dr Samuel notified, he said that we do need the INR now. Ordered to place midline if unable to draw blood. I called ER, Shraddha SAWYER RN attempted lab draw but could not draw via PICC or peripherally. Midline picc ordered. Nery, PICC nurse from [facility] called me back. After talking about patient's edema, she asked if I could take drsg & stat lock off and pull PICC line out 1-2 cm. PICC line out at 11 cm. After pulling back 1 cm I could still not draw. After pulling back 2 cm I was able to draw INR, and also several other tubes per lab request, in case orders more labwork tonight. I called Nery PICC nurse back to notify that I was able to get PICC line working again. PICC drsg changed per protocol. Total PICC length out = 13 cm.
[2018-01-11 19:29] LABS: Prothrombin Time 22.4 SECONDS (10.1-12.7)
--- NOTE | 2018-01-11 20:57 | PC.NURSE ---
PICC NOTE: Per [facility] Nery PICC nurse's request (via phone call) I removed PICC drsg & Stat lock and pulled PICC line out 2 cm. Now draws/flushes with no difficulty. Labs drawn via PICC, making sure to draw plenty of waste (7 ml) before drawing INR. Nery asked that I document these numbers and notify nurses take care not to accidentally pull PICC line out any further. Original placement = 55 cm Trimmed = 50 cm Inserted line = 37 cm (originally inserted to 42 cm) External line = 13 cm (before pulling out PICC I found 11 cm external, when originally placed only 8 cm external, per chart.) Please see my last nurse note for more details.
[2018-01-11] MEDS: AMIODARONE 100 MG TABLET PO (21:09)
[2018-01-12] VITALS (10 sets, daily range): BP systolic 108–137; BP diastolic 60–79; PULSE 70–97; RESP 16–20; TEMP 36.2–37.4; O2SAT 94–100
[2018-01-12] MEDS: PANTOPRAZOLE 20 MG TABLET PO (06:00)
[2018-01-12] MEDS: TRAMADOL 50 MG TABLET PO ×3 (06:52→18:08)
[2018-01-12 07:01] LABS: INR 2.2 (0.9-1.3)
[2018-01-12] MEDS: CEFTRIAXONE 1 GM/50 ML FROZ.PIGGY IV (09:20)
[2018-01-12] MEDS: ANASTROZOLE 1 MG TABLET PO (09:20)
[2018-01-12] MEDS: MELOXICAM 7.5 MG TABLET 15 MG PO (09:20)
[2018-01-12] MEDS: NYSTATIN 500000 UNIT PO ×3 (09:20→22:02)
[2018-01-12] MEDS: AMIODARONE 100 MG TABLET PO (09:21)
[2018-01-12] MEDS: WARFARIN 2 MG TABLET PO (09:21)
[2018-01-12] MEDS: ACETAMINOPHEN 325 MG TABLET 650 MG PO ×2 (09:28→22:03)
--- NOTE | 2018-01-12 12:38 | OT.IP.TRT ---
Current Diagnoses Thrombocytopenia, unspecified (01/07/18) Hypo-osmolality and hyponatremia (01/07/18) Acidosis (01/07/18) Nonrheumatic mitral (valve) insufficiency (01/07/18) Unspecified atrial fibrillation (01/07/18) Other specified soft tissue disorders (01/07/18) Urinary tract infection, site not specified (01/07/18) Tachycardia, unspecified (01/07/18) Diarrhea, unspecified (01/07/18) Abnormal levels of other serum enzymes (01/07/18) Occupational Therapy Treatment Note M2 OT-IP Current Condition Start: 01/10/18 16:00 Freq: Status: Active Protocol: Document 01/10/18 16:01 [facility] (Rec: 01/10/18 16:21 [facility] [id number]) Occupational Therapy Current Condition Current Condition Evaluation Date 01/10/18 Treatment Diagnosis a-fib, UTI, dehydration, severe heart failure M3 OT- IP Subjective and Pain Start: 01/10/18 16:00 Freq: Status: Active Protocol: Document 01/12/18 12:25 [facility] (Rec: 01/12/18 12:38 [facility] [id number]) OT- Subjective Occupational Therapy Visit Type Type Treatment Note Visit Start Time 11:50 Visit Stop Time 11:20 Total Visit Minutes 30 Occupational Therapy Visit Comments Patient Comments Pt able to follow one step commands today and able to use BUE better. OT Pain Assessment Pain When Pain Assessed At Rest Pain Present Pain Present Denied Pain M4 OT- IP ADL's Start: 01/10/18 16:00 Freq: Status: Active Protocol: Document 01/12/18 12:25 [facility] (Rec: 01/12/18 12:38 [facility] [id number]) OT QKE-Eord-Yqvvkiv Comments OT Self-Feeding Comments Pt continues to need 1:1 assist for meals. OT ADL-Grooming General Evaluation Grooming Ability Maximum Assistance Areas Needing Assistance Retrieving/Set-up of Grooming Items Combing/Brushing Hair Face Washing Comments OT Grooming Comments Pt able to hold wash cloth to wash her her mouth unable to reach up to her forehead, able to hold comb but unable to reach to comb her hair. OT ADL-Dressing Comments OT Dressing Comments Dependent for socks. OT ADL-Toileting Comments OT Toileting Comments Dependent, catheter. M6 OT- IP Functional Cognition Start: 01/10/18 16:00 Freq: Status: Active Protocol: Document 01/12/18 12:25 [facility] (Rec: 01/12/18 12:38 [facility] [id number]) Cognitive Factors Limiting Selfcare Function Cognitive Ability Level of Alertness Drowsy Lethargic Patient Orientation Name Attention Span Ability Capable of Focused Attention Unable to Focus Unable to Sustain Attention Ability to Follow Commands Able to Follow One Step Commands with Increased Time Able to Follow One Step Commands with Repetition Cognitive Comments Cognitive Assessment Comments Able to state she goes by Dennise, able to follow one step commands for grooming needs. M7 OT- IP Mobility and Balance Start: 01/10/18 16:00 Freq: Status: Active Protocol: Document 01/12/18 12:25 [facility] (Rec: 01/12/18 12:38 [facility] [id number]) OT- Bed Mobility Assessment Rolling Type of Rolling Roll to Right Level of Assistance Maximum Assistance 2 Person Assistance Supine to Sit Supine to Sit Assist Maximum Assistance 2 Person Assistance OT-Transfer Assessment Transfers Transfer Ability Total Assistance 2 Person Assistance Technique Transfer Destination Chair Transfer Technique Mechanical Lift Comments Mobility Comments Pt unable to assist for bed mobility and not able to sit up unsupported at all and needing MOD A for support to sit at the edge of the bed. OT- Balance Assessment Sitting Balance and Reactions Static Sitting Balance Ability Poor M8 OT- IP Objective Assessments Start: 01/10/18 16:00 Freq: Status: Active Protocol: Document 01/10/18 16:01 [facility] (Rec: 01/10/18 16:21 [facility] [id number]) OT Strength Comments Strength Comments Pt unable to raise arms up against gravity and arms very swollen. OT-Muscle Tone Assessment Muscle Tone WNL No Comments Muscle Tone Comments Decreased tone throughout BUE at this time. M9 OT- IP Assessment and Plan Start: 01/10/18 16:00 Freq: Status: Active Protocol: Document 01/12/18 12:25 [facility] (Rec: 01/12/18 12:38 [facility] [id number]) OT Summary Assessment and Plan Potential Rehabilitation Potential Good Analytic Complexity at Evaluation High Summary OT Impairments Pain Range of Motion Strength Balance Coordination Sensation Tone Functional Cognition Functional Mobility Self-Feeding Grooming Dressing Toileting Bathing Toilet Transfers Shower Transfers Progress Towards Goals Slow Progress due to Pain Slow Progress due to Medical Issues Slow Progress due to Activity Tolerance Slow Progress due to Cognition Assessment Summary Pt still needing extensive assist for all needs and requiring use of bryce for transfers but able to initiate use of BUE more today and able to hold wash cloth to wash the bottom of her face. Pt will benefit from skilled rehab when medically stable. Pt able to scan better with her eyes, however when comb placed directly in front of her unaware of what the object was. Goals Self-Feeding Goal Minimal Assistance Grooming Goal Minimal Assistance Dressing Goal Moderate Assistance Toileting Goal Moderate Assistance Toilet Transfer Goal Moderate Assistance Patient/Caregiver Education Goal Caregiver Independent Assisting Patient Days to Meet Goals 10 Frequency of Treatment Frequency Of Treatment Once a Day Treatment Plan OT Treatment Plan ADL Training Functional Cognition Training Functional Mobility Patient/Family Education Discharge Planning Other Treatment Recommendations and Next Grooming, sitting balance, Treatment Focus family training. Discharge Recommendations OT Discharge Recommendations SNF Rehab
--- NOTE | 2018-01-12 12:53 | PT.IPTN ---
Current Diagnoses Thrombocytopenia, unspecified (01/07/18) Hypo-osmolality and hyponatremia (01/07/18) Acidosis (01/07/18) Nonrheumatic mitral (valve) insufficiency (01/07/18) Unspecified atrial fibrillation (01/07/18) Other specified soft tissue disorders (01/07/18) Urinary tract infection, site not specified (01/07/18) Tachycardia, unspecified (01/07/18) Diarrhea, unspecified (01/07/18) Abnormal levels of other serum enzymes (01/07/18) Physical Therapy Treatment Note M2 PT-IP Current Condition Start: 01/10/18 16:58 Freq: Status: Active Protocol: Document 01/10/18 15:45 RCC (Rec: 01/10/18 17:13 RCC [id number]) Physical Therapy Current Condition Current Condition Evaluation Date 01/10/18 Treatment Diagnosis diarrhea, fever, impaired mobility M3 PT-IP Subjective Start: 01/10/18 16:58 Freq: Status: Active Protocol: Document 01/12/18 12:25 LRN (Rec: 01/12/18 12:51 LRN [id number]) Subjective Physical Therapy Visit Type Type Treatment Note Visit Start Time 11:50 Visit Stop Time 12:15 Total Visit Minutes 25 Number of SENIOR FINANCIAL ANALYST Visits 0 Physical Therapy Visit Comments Patient Comments Pt agreeable to get up in chair. Therapy Pain Assessment Pain Present Pain Present Pain Reported Location Bilateral Toe Pain Behaviors Calling Out Moaning Wincing Pain Management Techniques Modification of Treatment M4 PT-IP Mobility and Gait Start: 01/10/18 16:58 Freq: Status: Active Protocol: Document 01/12/18 12:25 LRN (Rec: 01/12/18 12:51 LRN [id number]) PT-Bed Mobility Assessment Supine to Sit Supine to Sit Maximum Assistance 2 Person Assistance PT-Transfer Assessment Equipment Transfer Assistive Device Mechanical Lift Orthotic/Prosthetic Devices or Brace: No Transfers Transfer Destination Chair Transfer Technique Mechanical Lift Transfer Ability Level of Assist Maximum Assistance 2 Person Assistance Comments Mobility Comments Pt is able to move her RLE , L ankle and LUE on command. Pt was modified max A to sit using log roll method. Pt was able to help a little by reaching with the L arm to roll to the R and assisted a little with trunk mobility. Pt was able to sit supported with mod assist of 1. Pt was placed in a chair using a bryce lift and left in presence of OT for therapy. Gait Assessment Comments Gait Comments Gait is not appropriate at this time. PT-Balance Assessment Sitting Balance and Reactions Static Sitting Balance Ability Poor Dynamic Sitting Balance Ability Poor Comments Other Balance Tests/Deviations/Treatment Per OT, sitting balance is : slightly better. M5 PT-IP Objective Assessments Start: 01/10/18 16:58 Freq: Status: Active Protocol: Document 01/12/18 12:25 LRN (Rec: 01/12/18 12:51 LRN [id number]) Orientation Orientation/Cognition Level of Alertness Lethargic Orientation Name Safety Awareness Decreased Safety Awareness Comments Pt was able to follow simple directions and verbally respond to questions, although at time not completely appropriately. Strength Upper Extremity Strength Assessment Bilaterally Impaired Lower Extremity Strength Assessment Bilaterally Impaired Comments Strength Comments Low tone. L LE worse than R LE. R UE worse than L UE. Muscle Tone Comments Muscle Tone Comments Low muscle tone generally in UE's and LE's. Other Assessments Other Other Assessments Generalized swelling of LE's that family states is fairly normal, except in the feet swelling is worse. Swelling in UE's in not normal. M6 PT-IP Treatment Start: 01/10/18 16:58 Freq: Status: Active Protocol: Document 01/12/18 12:25 LRN (Rec: 01/12/18 12:51 LRN [id number]) Physical Therapy Treatment Exercises Exercises Ankle Pumps Heel Slides Shoulder Flexion Other Treatments Other Treatment Performed Therapeutic ex: Neck rotation , abdominal tightening. Assist with heel slides and chest press. M7 PT-IP Assessment and Plan Start: 01/10/18 16:58 Freq: Status: Active Protocol: Document 01/12/18 12:25 LRN (Rec: 01/12/18 12:51 LRN [id number]) PT Summary Assessment and Plan Potential Rehabilitation Potential Fair Status of Condition at Evaluation Unstable Summary Impairments Strength Balance Cognition Bed Mobility Transfers Gait Activity Tolerance Assessment Summary Pt mildly participated in session and was able to follow commands. She was able to move her RLE and L UE with assist. Pt was able to answer simple questions verbally. Pt is able to tolerate more exercise; therefore may tolerate increasing therapy to 2x/day. Pt is not appropriate for standing and gait due to LE weakness and poor trunk control. Goals Bed Mobility Goal Moderate Assistance Transfer Goal Maximal Assistance Front Wheeled Walker Gait Goal Maximal Assistance Front Wheel Walker Gait Distance 5 ft Frequency of Treatment Frequency Of Treatment Twice a Day Treatment Plan Physical Therapy Treatment Plan Bed Mobility Training Transfer Training Gait Training Therapeutic Exercise Balance Retraining Discharge Planning Recommendations To Nursing Amount of Assist Needed Total Assistance Mechanical Lift Discharge Recommendations PT Discharge Recommendations SNF Rehab
--- NOTE | 2018-01-12 13:42 | PC.NURSE ---
Day shift note: pt is alert assisted to chair at bedside, reported being uncomfortable assisted with elevating legs and placing head back, warm blanket given. pt arrived and assested with bryce transfer back to bed, pt 2 max assist with bed mobility. family at bedside pt is resting comfortably at this time.
--- NOTE | 2018-01-12 14:09 | PT.IPTN ---
Current Diagnoses Thrombocytopenia, unspecified (01/07/18) Hypo-osmolality and hyponatremia (01/07/18) Acidosis (01/07/18) Nonrheumatic mitral (valve) insufficiency (01/07/18) Unspecified atrial fibrillation (01/07/18) Other specified soft tissue disorders (01/07/18) Urinary tract infection, site not specified (01/07/18) Tachycardia, unspecified (01/07/18) Diarrhea, unspecified (01/07/18) Abnormal levels of other serum enzymes (01/07/18) Physical Therapy Treatment Note M2 PT-IP Current Condition Start: 01/10/18 16:58 Freq: Status: Active Protocol: Document 01/10/18 15:45 RCC (Rec: 01/10/18 17:13 RCC [id number]) Physical Therapy Current Condition Current Condition Evaluation Date 01/10/18 Treatment Diagnosis diarrhea, fever, impaired mobility M3 PT-IP Subjective Start: 01/10/18 16:58 Freq: Status: Active Protocol: Document 01/12/18 13:52 LRN (Rec: 01/12/18 14:09 LRN [id number]) Subjective Physical Therapy Visit Type Type Treatment Note Visit Start Time 13:10 Visit Stop Time 13:40 Total Visit Minutes 30 Number of PRECISION OPTICAL GOODS WORKER Visits 0 Physical Therapy Visit Comments Patient Comments Pt agreeable to exercise and requests return to bed vs staying sitting up in chair. Therapy Pain Assessment Pain Present Pain Present Pain Reported Location Bilateral Back Pain Behaviors Crying Facial Grimacing M4 PT-IP Mobility and Gait Start: 01/10/18 16:58 Freq: Status: Active Protocol: Document 01/12/18 13:52 LRN (Rec: 01/12/18 14:09 LRN [id number]) PT-Bed Mobility Assessment Rolling Level of Assist Maximal Assistance 2 Person Assistance PT-Transfer Assessment Transfers Transfer Destination Bed Transfer Technique Mechanical Lift Transfer Ability Level of Assist Maximum Assistance 2 Person Assistance Comments Mobility Comments Ivonne lift to bed with starting position with pt seated in chair. Gait Assessment Comments Gait Comments Gait is not appropriate at this time. PT-Balance Assessment Sitting Balance and Reactions Static Sitting Balance Ability Fair Dynamic Sitting Balance Ability Poor Comments Other Balance Tests/Deviations/Treatment Pt was able to sit unsupported : for trunk ex's. M5 PT-IP Objective Assessments Start: 01/10/18 16:58 Freq: Status: Active Protocol: Document 01/12/18 13:52 LRN (Rec: 01/12/18 14:09 LRN [id number]) Orientation Orientation/Cognition Level of Alertness Lethargic Safety Awareness Decreased Safety Awareness Comments Pt was able to follow simple commands. Responses were appropriate. Pt was able to remember and repeat PNF type repetitive movement ex's at the elbow. Strength Upper Extremity Strength Assessment Bilaterally Impaired Lower Extremity Strength Assessment Bilaterally Impaired Comments Strength Comments Low tone, L LE a little worse than R LE; R UE a little worse than L UE. Muscle Tone Comments Muscle Tone Comments Low muscle tone generally in UE's and LE's. Other Assessments Other Other Assessments Generalized swelling of LE's that family states is fairly normal, except in the feet swelling is worse. Swelling in UE's in not normal. M6 PT-IP Treatment Start: 01/10/18 16:58 Freq: Status: Active Protocol: Document 01/12/18 13:52 LRN (Rec: 01/12/18 14:09 LRN [id number]) Physical Therapy Treatment Exercises Exercises Ankle Pumps Heel Slides Seated Knee Flexion/Extension Shoulder Flexion Elbow Flexion/Extension Wrist ROM Other Treatments Other Treatment Performed Trunk strengthening for active flex/ext and rotation bilaterally. All ex's 10 reps with LE's, 8 reps with UE's. Min A with shoulder flex ( chest press). M7 PT-IP Assessment and Plan Start: 01/10/18 16:58 Freq: Status: Active Protocol: Document 01/12/18 13:52 LRN (Rec: 01/12/18 14:09 LRN [id number]) PT Summary Assessment and Plan Potential Rehabilitation Potential Fair Status of Condition at Evaluation Unstable Summary Impairments Strength Balance Cognition Bed Mobility Transfers Gait Activity Tolerance Assessment Summary Pt participated in session and was able to follow commands. She was able to move her RLE and LUE without assist except with chest press. Pt was able to tolerate more exercise. Pt is not appropriate for standing and gait due to LE weakness and poor trunk control today. Goals Bed Mobility Goal Moderate Assistance Transfer Goal Maximal Assistance Front Wheeled Walker Gait Goal Maximal Assistance Front Wheel Walker Gait Distance 5 ft Frequency of Treatment Frequency Of Treatment Twice a Day Treatment Plan Physical Therapy Treatment Plan Bed Mobility Training Transfer Training Gait Training Therapeutic Exercise Balance Retraining Discharge Planning Recommendations To Nursing Amount of Assist Needed Total Assistance Mechanical Lift Discharge Recommendations PT Discharge Recommendations SNF Rehab
--- NOTE | 2018-01-12 16:26 | PM.PN.1 ---
Subjective Date Patient Seen: 01/12/18 Time Patient Seen: 13:31 Interval history: Follow up on patient with a fairly complicated hospital course. Patient had urinary tract infection with sepsis and what appeared septic encephalopathy on admission. Patient also had a rapid AFib at further complicated by the clinical picture. Patient was started on amiodarone and continued. Yesterday and noted that the dose of amiodarone is 400 mg t.i.d.. I cut back this does quite a bit. The dose today is 200 mg b.i.d.. I stopped the Neurontin at this time. I am monitoring the patient for hopeful improvement in her cognition in the days that follow. Patient may be a good candidate for transfer to long-term facility if such can be arranged. Exam Vital Signs (past 8 hours): - 01/12/18 12:00 01/12/18 16:21 Temperature 97.2 F L Pulse Rate 79 70 Respiratory Rate 16 20 Blood Pressure 124/70 137/79 Pulse Oximetry 98 100 Oxygen Delivery Method Room Air Oxygen Flow Rate 0 Narrative Exam Narrative: General appearance patient appears more awake today as the family notes. Psychiatric oriented to self and time which is a modest improvement. Would is pleasant cooperative affect appropriate Respiratory fairly clear to auscultation no wheezes crackles Cardiovascular irregular irregular rhythm rate controlled 80 per minute plus pulses +3 to extremities systolic murmur heard across the chest. Gastrointestinal early soft nontender positive bowel sounds no distention or guarding no bruits Neurologic no focal neurologic changes cranial nerves 2-12 grossly intact proprioception appears intact Objective Labs Result Diagrams: 01/09/18 05:00 01/11/18 04:45 Labs: Laboratory Results - last 24 hr 01/11/18 01/12/18 18:50 06:45 PT 22.4 H D 24.0 H INR 2.0 H 2.2 H Assessment & Plan Plan: Assessment/Plan Narrative: 1. Atrial fibrillation with RVR: Repeated episodes of rapid AFib noted during hospital course. Note patient was unstable clinically in the emergency room setting and underwent cardioversion on day of admission. Front End Developer Javascript Html Css is consulting on patient. Due to the hypotensive episode the beta-raul was held. Amiodarone was started at recommendation of ad operations associate Coumadin anticoagulant therapy started 01/09 as requested by ad operations associate. Daily INR requested. Today's INR is 2.2 so 2.0 mg of coumadin given today. Repeat INR in a.m. 2. Toxic encephalopathy I do not suspect an infectious process has been contributing to these more recent days of lethargy. I note patient on a fairly sizable dose of amiodarone at 400 mg t.i.d. as well as Neurontin at 600 mg t.i.d. as well as narcotic therapy as needed. I am going to decrease the amiodarone dose down considerably and discontinue the Neurontin and the stronger dosing opioids. I will provide tramadol as needed if needed. Family at bedside notes patient's level of consciousness is much more apparent in terms of improvement today. (3) Elevated troponin: Note the troponin elevated during hospital course is trending down. Front End Developer Javascript Html Css has recommended a myocardial perfusion study before eventual discharge 81 mg dose of aspirin started as cardioprotective measure (4) Acute UTI: Ceftriaxone antibiotic provided. Klebsiella organism identified and sensitive to ceftriaxone. Patient with completion of the antibiotic treatment For the UTI. Will discontinue the ceftriaxone (5) Diarrhea: Note patient admitted with a prior 5 day history of diarrhea before admission Test for C diff colitis requested and negative (6) Thrombocytopenia: Etiology of the low platelet count not entirely clear. No active bleeding identified will continue to monitor Time Spent With Patient Time with patient: 25 - 35 minutes (25 min)
--- NOTE | 2018-01-12 16:33 | P.PN_ITS ---
Subjective Date Patient Seen: 01/12/18 Time Patient Seen: 13:31 Interval history: Follow up on patient with a fairly complicated hospital course. Patient had urinary tract infection with sepsis and what appeared septic encephalopathy on admission. Patient also had a rapid AFib at further complicated by the clinical picture. Patient was started on amiodarone and continued. Yesterday and noted that the dose of amiodarone is 400 mg t.i.d.. I cut back this does quite a bit. The dose today is 200 mg b.i.d.. I stopped the Neurontin at this time. I am monitoring the patient for hopeful improvement in her cognition in the days that follow. Patient may be a good candidate for transfer to [facility] facility if such can be arranged. Exam Vital Signs (past 8 hours): - 01/12/18 12:00 01/12/18 16:21 Temperature 97.2 F L Pulse Rate 79 70 Respiratory Rate 16 20 Blood Pressure 124/70 137/79 Pulse Oximetry 98 100 Oxygen Delivery Method Room Air Oxygen Flow Rate 0 Narrative Exam Narrative: General appearance patient appears more awake today as the family notes. Psychiatric oriented to self and time which is a modest improvement. Would is pleasant cooperative affect appropriate Respiratory fairly clear to auscultation no wheezes crackles Cardiovascular irregular irregular rhythm rate controlled 80 per minute plus pulses +3 to extremities systolic murmur heard across the chest. Gastrointestinal early soft nontender positive bowel sounds no distention or guarding no bruits Neurologic no focal neurologic changes cranial nerves 2-12 grossly intact proprioception appears intact Objective Labs Result Diagrams: 01/09/18 05:00 01/11/18 04:45 Labs: Laboratory Results - last 24 hr 01/11/18 01/12/18 18:50 06:45 PT 22.4 H D 24.0 H INR 2.0 H 2.2 H Assessment & Plan Plan: Assessment/Plan Narrative: 1. Atrial fibrillation with RVR: Repeated episodes of rapid AFib noted during hospital course. Note patient was unstable clinically in the emergency room setting and underwent cardioversion on day of admission. Recording Clerk is consulting on patient. Due to the hypotensive episode the beta- raul was held. Amiodarone was started at recommendation of breaker boss Coumadin anticoagulant therapy started 01/09 as requested by breaker boss. Daily INR requested. Today's INR is 2.2 so 2.0 mg of coumadin given today. Repeat INR in a.m. 2. Toxic encephalopathy I do not suspect an infectious process has been contributing to these more recent days of lethargy. I note patient on a fairly sizable dose of amiodarone at 400 mg t.i.d. as well as Neurontin at 600 mg t.i.d. as well as narcotic therapy as needed. I am going to decrease the amiodarone dose down considerably and discontinue the Neurontin and the stronger dosing opioids. I will provide tramadol as needed if needed. Family at bedside notes patient's level of consciousness is much more apparent in terms of improvement today. (3) Elevated troponin: Note the troponin elevated during hospital course is trending down. Recording Clerk has recommended a myocardial perfusion study before eventual discharge 81 mg dose of aspirin started as cardioprotective measure (4) Acute UTI: Ceftriaxone antibiotic provided. Klebsiella organism identified and sensitive to ceftriaxone. Patient with completion of the antibiotic treatment For the UTI. Will discontinue the ceftriaxone (5) Diarrhea: Note patient admitted with a prior 5 day history of diarrhea before admission Test for C diff colitis requested and negative (6) Thrombocytopenia: Etiology of the low platelet count not entirely clear. No active bleeding identified will continue to monitor Time Spent With Patient Time with patient: 25 - 35 minutes (25 min)
[2018-01-12] MEDS: AMIODARONE 200 MG TABLET PO (18:08)
[2018-01-12] MEDS: SODIUM CHLORIDE 0.9% FLUSH 10 ML IV (22:05)
--- NOTE | 2018-01-12 23:45 | PC.NURSE ---
At 1630 Dennise was oriented to self situation & family at bedside. Answering few questions. Refused snack or meal, sipping on ensure. Moving UE's occasionally. Arms and legs with non-pitting puffy edema, legs appear 3-4+ but skin rebounds immediately and does not pit. Preet LE SCD's on. VS stable. At 1930 Dennise woke up very confused, saying 2 priests just in here, and I need to check on the little children. I could not reorient her, when trying she became agitated, irritated I did not believe her. When asked if she wanted me to call her daughter she said yes. I called Angely and transfered call to Dennise, helping her answer. She was angry with daughter and would not reorient. Daughter called me back & I gave her update, telling her that nothing had changed except that I had medicated Dennise with Tramadol previously in shift. Dennise had also had one tramadol on day shift and had no similar reaction. Patient eventually became calm again. C/o headache pain, I medicated her with 2 Tylenol. Oral swab/care/moisture provided, then Nystatin swish & swallow given. Tongue appears bright red, patient denied pain to tongue or throat. Dozing since then. Full report handed off to Madeline ADAMS RN.
[2018-01-13] VITALS (11 sets, daily range): BP systolic 131–157; BP diastolic 59–95; PULSE 72–92; RESP 16–18; TEMP 36.4–36.9; O2SAT 94–100
--- NOTE | 2018-01-13 02:13 | PC.NURSE ---
shift boss: Saliva samples were collected and sent as ordered by .
--- NOTE | 2018-01-13 02:30 | PC.NURSE ---
storehouse clerk: 0230 pt awoke and was calling out, when staff arrived pt was agitated and disoriented, difficult to reorient. Pt seemed a bit paranoid when staff was trying to assist her. Repositioned pt, turned her angus off and she quickly fell back to sleep.
[2018-01-13] MEDS: PANTOPRAZOLE 20 MG TABLET PO (05:45)
[2018-01-13 06:12] LABS: INR 2.6 (0.9-1.3)
[2018-01-13] MEDS: ANASTROZOLE 1 MG TABLET PO (09:40)
[2018-01-13] MEDS: MELOXICAM 7.5 MG TABLET 15 MG PO (09:40)
[2018-01-13] MEDS: CEFTRIAXONE 1 GM/50 ML FROZ.PIGGY IV (09:41)
[2018-01-13] MEDS: NYSTATIN 500000 UNIT PO ×3 (09:41→19:56)
[2018-01-13] MEDS: SODIUM CHLORIDE 0.9% FLUSH 10 ML IV ×2 (09:41→19:56)
[2018-01-13] MEDS: AMIODARONE 200 MG TABLET PO ×2 (09:41→16:36)
[2018-01-13] MEDS: ACETAMINOPHEN 325 MG TABLET 650 MG PO ×2 (10:50→16:39)
--- NOTE | 2018-01-13 11:41 | OT.IP.TRT ---
Current Diagnoses Thrombocytopenia, unspecified (01/07/18) Hypo-osmolality and hyponatremia (01/07/18) Acidosis (01/07/18) Nonrheumatic mitral (valve) insufficiency (01/07/18) Unspecified atrial fibrillation (01/07/18) Other specified soft tissue disorders (01/07/18) Urinary tract infection, site not specified (01/07/18) Tachycardia, unspecified (01/07/18) Diarrhea, unspecified (01/07/18) Abnormal levels of other serum enzymes (01/07/18) Occupational Therapy Treatment Note M2 OT-IP Current Condition Start: 01/10/18 16:00 Freq: Status: Active Protocol: Document 01/10/18 16:01 [facility] (Rec: 01/10/18 16:21 [facility] [id number]) Occupational Therapy Current Condition Current Condition Evaluation Date 01/10/18 Treatment Diagnosis a-fib, UTI, dehydration, severe heart failure M3 OT- IP Subjective and Pain Start: 01/10/18 16:00 Freq: Status: Active Protocol: Document 01/13/18 11:40 [facility] (Rec: 01/13/18 11:41 [facility] [id number]) OT- Subjective Occupational Therapy Visit Type Type Patient Refusal Notes Pt refusing to get up at this time, Just leave me alone. To check on pt in the PM for therapy.
--- NOTE | 2018-01-13 12:10 | PT.IPTN ---
Current Diagnoses Thrombocytopenia, unspecified (01/07/18) Hypo-osmolality and hyponatremia (01/07/18) Acidosis (01/07/18) Nonrheumatic mitral (valve) insufficiency (01/07/18) Unspecified atrial fibrillation (01/07/18) Other specified soft tissue disorders (01/07/18) Urinary tract infection, site not specified (01/07/18) Tachycardia, unspecified (01/07/18) Diarrhea, unspecified (01/07/18) Abnormal levels of other serum enzymes (01/07/18) Physical Therapy Treatment Note M2 PT-IP Current Condition Start: 01/10/18 16:58 Freq: Status: Active Protocol: Document 01/10/18 15:45 RCC (Rec: 01/10/18 17:13 RCC [id number]) Physical Therapy Current Condition Current Condition Evaluation Date 01/10/18 Treatment Diagnosis diarrhea, fever, impaired mobility M3 PT-IP Subjective Start: 01/10/18 16:58 Freq: Status: Active Protocol: Document 01/13/18 12:08 AB (Rec: 01/13/18 12:09 AB [id number]) Subjective Physical Therapy Visit Type Type Patient Refusal Notes checked on pt x 2 and pt refused PT. stated i just want you to go away. M4 PT-IP Mobility and Gait Start: 01/10/18 16:58 Freq: Status: Active Protocol: Document 01/12/18 13:52 LRN (Rec: 01/12/18 14:09 LRN [id number]) PT-Bed Mobility Assessment Rolling Level of Assist Maximal Assistance 2 Person Assistance PT-Transfer Assessment Transfers Transfer Destination Bed Transfer Technique Mechanical Lift Transfer Ability Level of Assist Maximum Assistance 2 Person Assistance Comments Mobility Comments Ivonne lift to bed with starting position with pt seated in chair. Gait Assessment Comments Gait Comments Gait is not appropriate at this time. PT-Balance Assessment Sitting Balance and Reactions Static Sitting Balance Ability Fair Dynamic Sitting Balance Ability Poor Comments Other Balance Tests/Deviations/Treatment Pt was able to sit unsupported : for trunk ex's. M5 PT-IP Objective Assessments Start: 01/10/18 16:58 Freq: Status: Active Protocol: Document 01/12/18 13:52 LRN (Rec: 01/12/18 14:09 LRN [id number]) Orientation Orientation/Cognition Level of Alertness Lethargic Safety Awareness Decreased Safety Awareness Comments Pt was able to follow simple commands. Responses were appropriate. Pt was able to remember and repeat PNF type repetitive movement ex's at the elbow. Strength Upper Extremity Strength Assessment Bilaterally Impaired Lower Extremity Strength Assessment Bilaterally Impaired Comments Strength Comments Low tone, L LE a little worse than R LE; R UE a little worse than L UE. Muscle Tone Comments Muscle Tone Comments Low muscle tone generally in UE's and LE's. Other Assessments Other Other Assessments Generalized swelling of LE's that family states is fairly normal, except in the feet swelling is worse. Swelling in UE's in not normal. M6 PT-IP Treatment Start: 01/10/18 16:58 Freq: Status: Active Protocol: Document 01/12/18 13:52 LRN (Rec: 01/12/18 14:09 LRN [id number]) Physical Therapy Treatment Exercises Exercises Ankle Pumps Heel Slides Seated Knee Flexion/Extension Shoulder Flexion Elbow Flexion/Extension Wrist ROM Other Treatments Other Treatment Performed Trunk strengthening for active flex/ext and rotation bilaterally. All ex's 10 reps with LE's, 8 reps with UE's. Min A with shoulder flex ( chest press). M7 PT-IP Assessment and Plan Start: 01/10/18 16:58 Freq: Status: Active Protocol: Document 01/12/18 13:52 LRN (Rec: 01/12/18 14:09 LRN [id number]) PT Summary Assessment and Plan Potential Rehabilitation Potential Fair Status of Condition at Evaluation Unstable Summary Impairments Strength Balance Cognition Bed Mobility Transfers Gait Activity Tolerance Assessment Summary Pt participated in session and was able to follow commands. She was able to move her RLE and LUE without assist except with chest press. Pt was able to tolerate more exercise. Pt is not appropriate for standing and gait due to LE weakness and poor trunk control today. Goals Bed Mobility Goal Moderate Assistance Transfer Goal Maximal Assistance Front Wheeled Walker Gait Goal Maximal Assistance Front Wheel Walker Gait Distance 5 ft Frequency of Treatment Frequency Of Treatment Twice a Day Treatment Plan Physical Therapy Treatment Plan Bed Mobility Training Transfer Training Gait Training Therapeutic Exercise Balance Retraining Discharge Planning Recommendations To Nursing Amount of Assist Needed Total Assistance Mechanical Lift Discharge Recommendations PT Discharge Recommendations SNF Rehab
--- NOTE | 2018-01-13 14:00 | PT.IPTN ---
Current Diagnoses Thrombocytopenia, unspecified (01/07/18) Hypo-osmolality and hyponatremia (01/07/18) Acidosis (01/07/18) Nonrheumatic mitral (valve) insufficiency (01/07/18) Unspecified atrial fibrillation (01/07/18) Other specified soft tissue disorders (01/07/18) Urinary tract infection, site not specified (01/07/18) Tachycardia, unspecified (01/07/18) Diarrhea, unspecified (01/07/18) Abnormal levels of other serum enzymes (01/07/18) Physical Therapy Treatment Note M2 PT-IP Current Condition Start: 01/10/18 16:58 Freq: Status: Active Protocol: Document 01/10/18 15:45 RCC (Rec: 01/10/18 17:13 RCC [id number]) Physical Therapy Current Condition Current Condition Evaluation Date 01/10/18 Treatment Diagnosis diarrhea, fever, impaired mobility M3 PT-IP Subjective Start: 01/10/18 16:58 Freq: Status: Active Protocol: Document 01/13/18 14:00 AB (Rec: 01/13/18 15:07 AB [id number]) Subjective Physical Therapy Visit Type Type Treatment Note Visit Start Time 14:00 Visit Stop Time 14:26 Total Visit Minutes 26 Number of INCIDENT MANAGER Visits 0 Physical Therapy Visit Comments Patient Comments pt agreed to get out of bed Therapy Pain Assessment Pain When Pain Assessed During Mobility Pain Present Pain Present Pain Reported Location Neck Scale Used pain scale not stated M4 PT-IP Mobility and Gait Start: 01/10/18 16:58 Freq: Status: Active Protocol: Document 01/13/18 14:00 AB (Rec: 01/13/18 15:07 AB [id number]) PT-Bed Mobility Assessment Supine to Sit Supine to Sit Maximum Assistance Total Assistance 2 Person Assistance Bedrails Scooting Scooting to Edge of Bed Dependent PT-Transfer Assessment Sit to and From Stand Sit to and from Stand Maximum Assistance Total Assistance 2 Person Assistance Use of Upper Extremities Equipment Transfer Assistive Device Gait Belt Front Wheeled Walker Orthotic/Prosthetic Devices or Brace: No Transfers Transfer Destination Chair Transfer Technique Stand Step Pivot Transfer Ability Level of Assist Maximum Assistance 2 Person Assistance Use of Upper Extremities Comments Mobility Comments pt stated that she is afraid of falling and with increase trunk guarding requiring increase assistance with sitting balance on EOB and during standing and transfers. pt required initial max A for sitting balance on EOB but was able to maintain sitting balance SBA to CGA after repositioning and cues to stabilize self and decrease posterior leaning. pt required max A x2 for weight shifting and to move BLE for transfers. pt positioned on chair. call light and table within reach. M5 PT-IP Objective Assessments Start: 01/10/18 16:58 Freq: Status: Active Protocol: Document 01/12/18 13:52 LRN (Rec: 01/12/18 14:09 LRN [id number]) Orientation Orientation/Cognition Level of Alertness Lethargic Safety Awareness Decreased Safety Awareness Comments Pt was able to follow simple commands. Responses were appropriate. Pt was able to remember and repeat PNF type repetitive movement ex's at the elbow. Strength Upper Extremity Strength Assessment Bilaterally Impaired Lower Extremity Strength Assessment Bilaterally Impaired Comments Strength Comments Low tone, L LE a little worse than R LE; R UE a little worse than L UE. Muscle Tone Comments Muscle Tone Comments Low muscle tone generally in UE's and LE's. Other Assessments Other Other Assessments Generalized swelling of LE's that family states is fairly normal, except in the feet swelling is worse. Swelling in UE's in not normal. M6 PT-IP Treatment Start: 01/10/18 16:58 Freq: Status: Active Protocol: Document 01/13/18 14:00 AB (Rec: 01/13/18 15:07 AB [id number]) Physical Therapy Treatment Education Education Provided Safety M7 PT-IP Assessment and Plan Start: 01/10/18 16:58 Freq: Status: Active Protocol: Document 01/13/18 14:00 AB (Rec: 01/13/18 15:07 AB [id number]) PT Summary Assessment and Plan Potential Rehabilitation Potential Fair Summary Impairments Strength Balance Cognition Bed Mobility Transfers Gait Activity Tolerance Assessment Summary Pt continues to require 2 person extensive assist with all mobilities and unable to ambulate at this time. pt will require SNF rehab to improve mobility and function. Goals Bed Mobility Goal Moderate Assistance Transfer Goal Moderate Assistance Front Wheeled Walker Gait Goal Moderate Assistance Front Wheel Walker Gait Distance 25 ft Frequency of Treatment Frequency Of Treatment Twice a Day Treatment Plan Physical Therapy Treatment Plan Bed Mobility Training Transfer Training Gait Training Therapeutic Exercise Balance Retraining Discharge Planning Recommendations To Nursing Amount of Assist Needed Total Assistance Mechanical Lift Discharge Recommendations PT Discharge Recommendations SNF Rehab
--- NOTE | 2018-01-13 14:10 | ST.IPIE ---
Care Team Visit Care Team Role Provider Type Deborah Teague MD Emergency Provider Physician Specialty: Emergency Medicine Address: [address] [place] [address], [id number] Email: Mason Ybarra MD Admit Provider Physician Attending Provider Specialty: Internal Medicine Address: [address] [place] [address], [id number] Email: Current Diagnoses Thrombocytopenia, unspecified (01/07/18) Hypo-osmolality and hyponatremia (01/07/18) Acidosis (01/07/18) Nonrheumatic mitral (valve) insufficiency (01/07/18) Unspecified atrial fibrillation (01/07/18) Other specified soft tissue disorders (01/07/18) Urinary tract infection, site not specified (01/07/18) Tachycardia, unspecified (01/07/18) Diarrhea, unspecified (01/07/18) Abnormal levels of other serum enzymes (01/07/18) Past Medical History (Last Reviewed 01/08/18 @ 12:40 by Sai Granados MD) History of bleeding ulcers (Acute Medical) Metastatic breast cancer (Acute Medical) ST IP Initial Evaulation Report SCARFER OPERATOR Cognitive/Memory Evaluation Start: 01/13/18 13:25 Freq: Status: Active Protocol: Document 01/13/18 13:25 MRM (Rec: 01/13/18 14:10 MRM [id number]) Evaluation of Cognition Session Time Visit Start Time 10:00 Visit Stop Time 11:00 Total Visit Minutes 60 Next Note Type Next Note Type Treatment Note Referral Referring Physician Dr Samuel Reason for Referral Cognitive impairment Evaluation Assessment Type Proctor Cognitive Assessment (MOCA) Past Medical History Patient History History of metastatic breast cancer and is s/p right mastectomy one year ago. She is on anastrozole daily but did not receive chemo or radiation. Patient was found to have hyopnatremia on admission and is admitted for further evaluation. 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 Observed to be very emotional and disinterested in participating with therapy. Dr Samuel present with SCARFER OPERATOR to initiate cognitive evaluation with family in the room. requested that family leave the room for evaluation, and they agreed. Patient did agree to participate in evaluation with SCARFER OPERATOR, but she was very easily discouraged and frequently asked to give up. SCARFER OPERATOR was able to administer all items on the evaluation, but the patient often stated, I don't know. She told SCARFER OPERATOR at the end of the evaluation that she had a level 7 pain in her head and agreed to taking medication. SCARFER OPERATOR relayed this information to RNVero. - - Cognition Orientation Skill Level Moderately Impaired Comment Unable to fully assess d/t patient's decline to participate Attention Skill Level Moderately Impaired Comment Unable to fully assess d/t patient's decline to participate Problem Solving/Reasoning/Judgment Skill Level Moderately Impaired Comment Unable to fully assess d/t patient's decline to participate Divergent Naming Skill Level Severely Impaired Sequencing Comment Unable to assess Auditory Math Comment Unable to assess Clock Drawing Comment Unable to assess Cognitive Assessment Cognitive Assessment SCARFER OPERATOR administered the MOCA. Patient was quiet easily upset and often covered her eyes and declined to respond to SCARFER OPERATOR. Appeared very discouraged and participated with minimal interest. SCARFER OPERATOR observed patient 's difficulty holding pen in her dominant hand (R), and the patient declined to complete items 1-3 (number/letter connecting, copy cube, clock drawing). Score of 0 as a result. Patient looked at three animals on the MOCA and requested to not name them. Stated, I just don't know and covered her eyes. Score of 0. Short term memory was functional (able to recall 5 random words, 5 numbers) but unable to recall after short delay, even with cues. Observed perseveration of instructions during attention task. Unable to distinguish appropriate cues. Score of 0. Patient declined to participate in serial 7 task ( subtract 7 from 100, 93, 86, etc). Patient stated, I do fairly well in math. SCARFER OPERATOR asked, If you take 7 away from 100, what number do you get? Patient processed this question for several seconds and stated, Why is this so hard? I just don't know. Declined to participate. Score of 0. She was able to accurately repeat sentence- length information, score 2/2. In fluency task, she produced 2 words that begin with /f/ in 60 second timeframe. Requested to stop. Unable to complete abstract task, score of 0. Able to state the place and city in orientation task, but unable to recall day, month, date or place. She did know she was in the hospital, but did not remember the name, despite Dr Samuel repeating this at the start of the session. - Memory Short Term Memory Skill Level Severely Impaired Comments Difficult to fully assess due to patient's frequent refusal to participate Immediate Recall Skill Level Mildly Impaired Word Recall Skill Level WFL - Findings Cognitive/Memory Impressions TOTAL SCORE: 5/30. Normal range = 26/30 or better. A score indicative of dementia = 16/30 or lower. However, due to the patient's underlying depression, emotional instability, and overall decline in health status (UTI with significant medication), this score may not accurately represent the patient's full cognitive potential. Frequently she avoided participation on various items and often asked to stop. This information was relayed to the family and they expressed concern for the patient's cognitive function. They informed SCARFER OPERATOR that the patient has been hoarding materials at home, frequently collecting cosmetic items. She is also planning to go on three cruises in the next 6 months, the first one being at the end of January. The patient's daughter stated that the patient does not allow family to go with her to medical appointments and does not relay medical information to them. As a result, they are not fully aware of her medical condition at baseline. They are worried about her discharge placement at this time and are unsure of the safety of her returning home independently. Recommendations Recommendations Further assessment of cognitive function is imperative. However, due to the patient's emotional state and level of participation, this may be difficult to accurately complete. A psych consult may be warranted (Dr Chaves). This was discussed with Dr. Samuel, who agreed that this may be a good course of action. At this time, SCARFER OPERATOR will continue to follow up with patient, as tolerable, to assess cognition and confirm safe swallowing. Further conference with staff and family strongly recommended in order to plan for the most appropriate discharge placement. Treatment Goals Mobile Lounge Driver Or Operator Goals Patient will participate in basic cognitive tasks with SCARFER OPERATOR to demonstrate cognitive ability (attention, problem solving, memory, executive function). Patient will participate in further cognitive testing to determine baseline. Patient will demonstrate safe swallowing in order to confirm diet order. Referrals Other Psych Consult Total Time Full Evaluation Time 60
--- NOTE | 2018-01-13 15:03 | OT.IP.TRT ---
Current Diagnoses Thrombocytopenia, unspecified (01/07/18) Hypo-osmolality and hyponatremia (01/07/18) Acidosis (01/07/18) Nonrheumatic mitral (valve) insufficiency (01/07/18) Unspecified atrial fibrillation (01/07/18) Other specified soft tissue disorders (01/07/18) Urinary tract infection, site not specified (01/07/18) Tachycardia, unspecified (01/07/18) Diarrhea, unspecified (01/07/18) Abnormal levels of other serum enzymes (01/07/18) Occupational Therapy Treatment Note M2 OT-IP Current Condition Start: 01/10/18 16:00 Freq: Status: Active Protocol: Document 01/10/18 16:01 [facility] (Rec: 01/10/18 16:21 [facility] [id number]) Occupational Therapy Current Condition Current Condition Evaluation Date 01/10/18 Treatment Diagnosis a-fib, UTI, dehydration, severe heart failure M3 OT- IP Subjective and Pain Start: 01/10/18 16:00 Freq: Status: Active Protocol: Document 01/13/18 14:42 [facility] (Rec: 01/13/18 15:03 [facility] [id number]) OT- Subjective Occupational Therapy Visit Type Type Treatment Note Visit Start Time 14:00 Visit Stop Time 14:25 Total Visit Minutes 25 Occupational Therapy Visit Comments Patient Comments Pt agreeable to get up after encouragement. OT Pain Assessment Pain When Pain Assessed At Rest Pain Present Pain Present Denied Pain M4 OT- IP ADL's Start: 01/10/18 16:00 Freq: Status: Active Protocol: Document 01/13/18 14:42 [facility] (Rec: 01/13/18 15:03 [facility] [id number]) OT ADL-Grooming General Evaluation Grooming Ability Standby Assistance Areas Needing Assistance Retrieving/Set-up of Grooming Items Comments OT Grooming Comments Pt able to reach for wash cloth and wash all of her face today. OT ADL-Dressing Comments OT Dressing Comments Dependent for socks. OT ADL-Toileting Comments OT Toileting Comments Dependent, catheter. M6 OT- IP Functional Cognition Start: 01/10/18 16:00 Freq: Status: Active Protocol: Document 01/13/18 14:42 [facility] (Rec: 01/13/18 15:03 [facility] [id number]) Cognitive Factors Limiting Selfcare Function Cognitive Ability Level of Alertness Alert Patient Orientation Name Attention Span Ability Capable of Focused Attention Unable to Sustain Attention Ability to Follow Commands Able to Follow One Step Commands with Increased Time Able to Follow One Step Commands with Repetition Cognitive Comments Cognitive Assessment Comments Pt able to answer questions and partake in conversation today. OT- Vision and Hearing OT- Hearing Assessment OT- Hearing Assessment WFL M7 OT- IP Mobility and Balance Start: 01/10/18 16:00 Freq: Status: Active Protocol: Document 01/13/18 14:42 [facility] (Rec: 01/13/18 15:03 [facility] [id number]) OT- Bed Mobility Assessment Supine to Sit Supine to Sit Assist Maximum Assistance Total Assistance 2 Person Assistance Scooting Scooting to Edge of Bed Maximum Assistance 2 Person Assistance OT-Transfer Assessment Sit to and From Stand Sit to and from Stand Maximum Assistance 2 Person Assistance Transfers Transfer Ability Maximum Assistance Total Assistance 2 Person Assistance Technique Transfer Destination Chair Transfer Technique Stand Step Pivot Devices Transfer Assistive Devices Gait Belt Front Wheeled Walker Comments Mobility Comments MAX A x2 to stand and assist to move FWW, help keep pt upright and to help advance her feet. Pt very fearful of falling and needs lots of encouragement to complete the transfer. OT- Balance Assessment Sitting Balance and Reactions Static Sitting Balance Ability Fair M8 OT- IP Objective Assessments Start: 01/10/18 16:00 Freq: Status: Active Protocol: Document 01/10/18 16:01 [facility] (Rec: 01/10/18 16:21 [facility] [id number]) OT Strength Comments Strength Comments Pt unable to raise arms up against gravity and arms very swollen. OT-Muscle Tone Assessment Muscle Tone WNL No Comments Muscle Tone Comments Decreased tome throughout BUE at this time. M9 OT- IP Assessment and Plan Start: 01/10/18 16:00 Freq: Status: Active Protocol: Document 01/13/18 14:42 [facility] (Rec: 01/13/18 15:03 [facility] [id number]) OT Summary Assessment and Plan Summary Assessment Summary Pt able to transfer with FWW and 2 therapists with MAX A x 2, sitting balance improve to be able to sit on her own with close sba after assist to get to her to the edge of the bed . Pt able to raise up arms against gravity RUE 0-90 and LUE 0-100. Goals Days to Meet Goals 10 Frequency of Treatment Frequency Of Treatment Once a Day Treatment Plan OT Treatment Plan ADL Training Functional Cognition Training Functional Mobility Patient/Family Education Discharge Planning Other Treatment Recommendations and Next Grooming, sitting balance, Treatment Focus family training. Discharge Recommendations OT Discharge Recommendations SNF Rehab Home Equipment Needs To be determined pending disposition.
--- NOTE | 2018-01-13 16:19 | CM.DPC ---
DCP: continued: Case received yesterday, EMR reviewed, discussed with Dr. Samuel and care team in morning meeting yesterday and again today and worked with pt's daughter Dominga and her Kimo periodically in attempt to help shape and appropriate and manageable d/c plan. Total of 4 hours spent over last 2 days in DCP process. Plan at this point is now identified as [facility] for [facility] short rehab/recovery stay[facility] accepted pt. A local snf on the [facility] corridor has been identified as best option as pt's snf rehab needs are quite intertwined with her fluctuating mental status and behaviors and a facility where the admission team and the CM/DCP team have a trusted relationship was felt to be best chance of finding an accepting facility within a very short time frame. Dominga and Kimo have identified a facility in [place] 5 minutes from their home: [facility]: Independent/Assisted/Memory Care options and with 24/ nursing staff. They note pt has looked at the facility with them when they all were looking for a facility for another family member. Option for home with caregivers not an options: pt has the funds: Dominga notes she is a hoader and their is very limited room to move in her home. Dominga agrees to discuss this with her mother as well as with her sister Merna in [place]. All are aware that pt is approaching readiness for d/c. P: [facility] as per above with transition to [facility]...pending pt's acceptance of same. DCP team will follow. PAS[facility] needed if snf is the plan
[2018-01-13] MEDS: WARFARIN 1 MG TABLET PO (16:36)
[2018-01-13] MEDS: FUROSEMIDE 40 MG TABLET PO (16:36)
--- NOTE | 2018-01-13 18:29 | PM.PN.1 ---
Subjective Date Patient Seen: 01/13/18 Time Patient Seen: 12:29 Interval history: Follow-up on patient who was initially admitted with rapid AFib and urinary tract infection with sepsis and suspected septic encephalopathy. The rapid AFib was addressed with medical management in the ICU. Cardiology consultation was obtained. Patient had a sluggish response from a cognitive standpoint. I suspect patient had also toxic encephalopathy from the medications provided. After further discussion with the daughter today it appears patient may have a mild cognitive decline over the past 1-2 years. 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 Today the speech therapist tried to conduct cognitive a valve with Xavi cognitive assessment and mini-mental status exam. Patient was not being sufficiently cooperative to allow completion of the evaluation. I suspect patient may have underlying fears of her cognitive decline progressing to something more severe such as Alzheimer's dementia for example. I provided patient for reassurance regarding her mild cognitive decline. She seems to be a bit more cooperative as the day has unfolded. Speech also connecting swallow eval. Review of systems Patient notes no chest pain or shortness of breath or nausea Exam Vital Signs (past 8 hours): - 01/13/18 13:00 01/13/18 15:35 Temperature 97.5 F L 98.5 F Pulse Rate 75 72 Respiratory Rate 17 18 Blood Pressure 131/76 149/59 H Pulse Oximetry 99 98 Oxygen Delivery Method Room Air Oxygen Flow Rate 0 Narrative Exam Narrative: Physical exam patient is noted awake and alert in no apparent distress at rest Psychiatric patient is oriented to self and time she still could not recall that this is [facility]. Skin no rashes or lesions turgor normal nonjaundiced Respiratory fairly clear to auscultation no wheezes no crackles good airflow Cardiovascular irregular regular rhythm rate controlled about 75-80 per minute +3 pulses to extremities prominent systolic murmur noted Gastrointestinal fairly soft nontender positive bowel sounds no masses no bruits Neurologic cranial nerves 2-12 appear grossly intact no focal neurologic changes noted on exam Objective Labs Result Diagrams: 01/09/18 05:00 01/11/18 04:45 Labs: Laboratory Results - last 24 hr 01/13/18 05:50 PT 29.0 H D INR 2.6 H Assessment & Plan Plan: Assessment/Plan Narrative: Atrial fibrillation with RVR: Repeated episodes of rapid AFib noted during hospital course. Note patient was unstable clinically in the emergency room setting and underwent cardioversion on day of admission. Frame Catcher is consulting on patient. Due to the hypotensive episode the beta-raul was held. Amiodarone was started at recommendation of storehouse clerk Coumadin anticoagulant therapy started 01/09 as requested by storehouse clerk. Daily INR requested. Today's INR is 2.6 so I gave 1 mg of Coumadin today repeat INR tomorrow in a.m.. 2. Toxic encephalopathy I do not suspect an infectious process has been contributing to the more recent days of confusion. I note patient on a fairly sizable dose of amiodarone at 400 mg t.i.d. as well as Neurontin at 600 mg t.i.d. as well as narcotic therapy as needed. I am going to decrease the amiodarone dose down considerably and discontinue the Neurontin and the stronger dosing opioids. I will provide tramadol as needed if needed. Family at bedside notes patient's level of consciousness is much more apparent in terms of improvement today. (3) Elevated troponin: Note the troponin elevated during hospital course is trending down. Frame Catcher has recommended a myocardial perfusion study before eventual discharge 81 mg dose of aspirin started as cardioprotective measure (4) Acute UTI: Ceftriaxone antibiotic provided. Klebsiella organism identified and sensitive to ceftriaxone. Patient with completion of the antibiotic treatment For the UTI. I discontinued the ceftriaxone on January 12 (5) Diarrhea: Note patient admitted with a prior 5 day history of diarrhea before admission Test for C diff colitis requested and negative (6) Thrombocytopenia: Etiology of the low platelet count not entirely clear. No active bleeding identified will continue to monitor Discharge planning Awaiting for case management to see about placement. Family would like patient down toward [facility] where she has family nearby. There are no family in the area of [facility]. Time Spent With Patient Time with patient: 25 - 35 minutes (25 min)
--- NOTE | 2018-01-13 18:36 | P.PN_ITS ---
Subjective Date Patient Seen: 01/13/18 Time Patient Seen: 12:29 Interval history: Follow-up on patient who was initially admitted with rapid AFib and urinary tract infection with sepsis and suspected septic encephalopathy. The rapid AFib was addressed with medical management in the ICU. Cardiology consultation was obtained. Patient had a sluggish response from a cognitive standpoint. I suspect patient had also toxic encephalopathy from the medications provided. After further discussion with the daughter today it appears patient may have a mild cognitive decline over the past 1-2 years. 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 Today the speech therapist tried to conduct cognitive a valve with Xavi cognitive assessment and mini-mental status exam. Patient was not being sufficiently cooperative to allow completion of the evaluation. I suspect patient may have underlying fears of her cognitive decline progressing to something more severe such as Alzheimer's dementia for example. I provided patient for reassurance regarding her mild cognitive decline. She seems to be a bit more cooperative as the day has unfolded. Speech also connecting swallow eval. Review of systems Patient notes no chest pain or shortness of breath or nausea Exam Vital Signs (past 8 hours): - 01/13/18 13:00 01/13/18 15:35 Temperature 97.5 F L 98.5 F Pulse Rate 75 72 Respiratory Rate 17 18 Blood Pressure 131/76 149/59 H Pulse Oximetry 99 98 Oxygen Delivery Method Room Air Oxygen Flow Rate 0 Narrative Exam Narrative: Physical exam patient is noted awake and alert in no apparent distress at rest Psychiatric patient is oriented to self and time she still could not recall that this is [facility]. Skin no rashes or lesions turgor normal nonjaundiced Respiratory fairly clear to auscultation no wheezes no crackles good airflow Cardiovascular irregular regular rhythm rate controlled about 75-80 per minute + 3 pulses to extremities prominent systolic murmur noted Gastrointestinal fairly soft nontender positive bowel sounds no masses no bruits Neurologic cranial nerves 2-12 appear grossly intact no focal neurologic changes noted on exam Objective Labs Result Diagrams: 01/09/18 05:00 01/11/18 04:45 Labs: Laboratory Results - last 24 hr 01/13/18 05:50 PT 29.0 H D INR 2.6 H Assessment & Plan Plan: Assessment/Plan Narrative: Atrial fibrillation with RVR: Repeated episodes of rapid AFib noted during hospital course. Note patient was unstable clinically in the emergency room setting and underwent cardioversion on day of admission. Pelletizer Operator is consulting on patient. Due to the hypotensive episode the beta- raul was held. Amiodarone was started at recommendation of university relations vice president Coumadin anticoagulant therapy started 01/09 as requested by university relations vice president. Daily INR requested. Today's INR is 2.6 so I gave 1 mg of Coumadin today repeat INR tomorrow in a.m.. 2. Toxic encephalopathy I do not suspect an infectious process has been contributing to the more recent days of confusion. I note patient on a fairly sizable dose of amiodarone at 400 mg t.i.d. as well as Neurontin at 600 mg t.i.d. as well as narcotic therapy as needed. I am going to decrease the amiodarone dose down considerably and discontinue the Neurontin and the stronger dosing opioids. I will provide tramadol as needed if needed. Family at bedside notes patient's level of consciousness is much more apparent in terms of improvement today. (3) Elevated troponin: Note the troponin elevated during hospital course is trending down. Pelletizer Operator has recommended a myocardial perfusion study before eventual discharge 81 mg dose of aspirin started as cardioprotective measure (4) Acute UTI: Ceftriaxone antibiotic provided. Klebsiella organism identified and sensitive to ceftriaxone. Patient with completion of the antibiotic treatment For the UTI. I discontinued the ceftriaxone on January 12 (5) Diarrhea: Note patient admitted with a prior 5 day history of diarrhea before admission Test for C diff colitis requested and negative (6) Thrombocytopenia: Etiology of the low platelet count not entirely clear. No active bleeding identified will continue to monitor Discharge planning Awaiting for case management to see about placement. Family would like patient down toward [facility] where she has family nearby. There are no family in the area of [facility]. Time Spent With Patient Time with patient: 25 - 35 minutes (25 min)
--- NOTE | 2018-01-13 23:03 | PC.NURSE ---
MRI not done, per supervisor burling and joining Yue Mccormack RN the MRI will be done tomorrow. MRI is now in temporary trailer, supervisor burling and joining aware of need for 2-3 person transfer as patient is AGNIESZKA lift only. Patient oriented to self but not to events or situation. Answering few yes/no questions. Flat affect, refusing repositioning with pillows tonight, repositioned using bed tilt. Reports no pain after given Tylenol for generalized achiness and butt pain. Hanna patent, diuresed 1150 ml clear yellow output. Drank one ensure and refused any food and refused 2nd ensure at bedtime. Talked with her about need for calorie intake. 2+ edema to legs, arms, hips and sacrum with generalized edema. Daughter Angely called this evening for update, said she would be here in the morning.
[2018-01-14 02:19] VITALS: O2SAT 94
[2018-01-14 04:00] VITALS: BP 140/85; PULSE 83; RESP 18; TEMP 37.1; O2SAT 97
[2018-01-14] MEDS: PANTOPRAZOLE 20 MG TABLET PO (06:21)
[2018-01-14 08:00] VITALS: BP 131/73; PULSE 88; RESP 16; TEMP 36.8; O2SAT 96
[2018-01-14 08:20] VITALS: O2SAT 96
[2018-01-14] MEDS: NYSTATIN 500000 UNIT PO (09:12)
[2018-01-14] MEDS: ACETAMINOPHEN 325 MG TABLET 650 MG PO (09:12)
[2018-01-14] MEDS: ANASTROZOLE 1 MG TABLET PO (09:12)
[2018-01-14] MEDS: AMIODARONE 200 MG TABLET PO (09:12)
[2018-01-14] MEDS: SODIUM CHLORIDE 0.9% FLUSH 10 ML IV (09:12)
[2018-01-14] MEDS: FUROSEMIDE 40 MG TABLET PO (09:12)
--- NOTE | 2018-01-14 09:45 | PT.IPTN ---
Current Diagnoses Thrombocytopenia, unspecified (01/07/18) Hypo-osmolality and hyponatremia (01/07/18) Acidosis (01/07/18) Nonrheumatic mitral (valve) insufficiency (01/07/18) Unspecified atrial fibrillation (01/07/18) Other specified soft tissue disorders (01/07/18) Urinary tract infection, site not specified (01/07/18) Tachycardia, unspecified (01/07/18) Diarrhea, unspecified (01/07/18) Other symptoms and signs involving cognitive functions and awareness (01/07/18) Abnormal levels of other serum enzymes (01/07/18) Other specified personal risk factors, not elsewhere classified (01/07/18) Physical Therapy Treatment Note M2 PT-IP Current Condition Start: 01/10/18 16:58 Freq: Status: Active Protocol: Document 01/10/18 15:45 RCC (Rec: 01/10/18 17:13 RCC [id number]) Physical Therapy Current Condition Current Condition Evaluation Date 01/10/18 Treatment Diagnosis diarrhea, fever, impaired mobility M3 PT-IP Subjective Start: 01/10/18 16:58 Freq: Status: Active Protocol: Document 01/14/18 09:45 AB (Rec: 01/14/18 11:36 AB [id number]) Subjective Physical Therapy Visit Type Type Treatment Note Visit Start Time 09:45 Visit Stop Time 10:08 Total Visit Minutes 23 Number of HOME CARE ATTENDANT Visits 0 Physical Therapy Visit Comments Patient Comments pt agreed to get up Therapy Pain Assessment Pain When Pain Assessed During Mobility Pain Present Pain Present Pain Reported Location Left Knee Scale Used pain scale not stated M4 PT-IP Mobility and Gait Start: 01/10/18 16:58 Freq: Status: Active Protocol: Document 01/14/18 09:45 AB (Rec: 01/14/18 11:36 AB [id number]) PT-Bed Mobility Assessment Supine to Sit Supine to Sit Maximum Assistance 1 Person Assistance Bedrails PT-Transfer Assessment Sit to and From Stand Sit to and from Stand Maximum Assistance 2 Person Assistance Use of Upper Extremities Equipment Transfer Assistive Device Gait Belt Front Wheeled Walker Orthotic/Prosthetic Devices or Brace: No Transfers Transfer Destination Chair Transfer Technique Stand Step Pivot Transfer Ability Level of Assist Maximum Assistance 2 Person Assistance Use of Upper Extremities Comments Mobility Comments pt requires max A x 2 and max cues. pt with difficulty moving BLE requiring assist with weight shifting and to advance BLE. M5 PT-IP Objective Assessments Start: 01/10/18 16:58 Freq: Status: Active Protocol: Document 01/12/18 13:52 LRN (Rec: 01/12/18 14:09 LRN [id number]) Orientation Orientation/Cognition Level of Alertness Lethargic Safety Awareness Decreased Safety Awareness Comments Pt was able to follow simple commands. Responses were appropriate. Pt was able to remember and repeat PNF type repetitive movement ex's at the elbow. Strength Upper Extremity Strength Assessment Bilaterally Impaired Lower Extremity Strength Assessment Bilaterally Impaired Comments Strength Comments Low tone, L LE a little worse than R LE; R UE a little worse than L UE. Muscle Tone Comments Muscle Tone Comments Low muscle tone generally in UE's and LE's. Other Assessments Other Other Assessments Generalized swelling of LE's that family states is fairly normal, except in the feet swelling is worse. Swelling in UE's in not normal. M6 PT-IP Treatment Start: 01/10/18 16:58 Freq: Status: Active Protocol: Document 01/14/18 09:45 AB (Rec: 01/14/18 11:36 AB [id number]) Physical Therapy Treatment Exercises Exercises Ankle Pumps Heel Slides Education Education Provided Precautions Safety Other Treatments Other Treatment Performed pt completed AAROM of heel slide and AROM of ankle pumps M7 PT-IP Assessment and Plan Start: 01/10/18 16:58 Freq: Status: Active Protocol: Document 01/14/18 09:45 AB (Rec: 01/14/18 11:36 AB [id number]) PT Summary Assessment and Plan Potential Rehabilitation Potential Fair Summary Impairments Pain ROM Strength Balance Coordination Sensation Tone Cognition Bed Mobility Transfers Gait Activity Tolerance Progress Towards Goals Slow Progress due to Medical Issues Slow Progress due to Activity Tolerance Assessment Summary pt is slowly progressing with mobility but continues to require 2 person assist and unable to tolerate much activity. pt will require SNF rehab to improve strength and mobility. Goals Bed Mobility Goal Moderate Assistance Transfer Goal Moderate Assistance Front Wheeled Walker Gait Goal Moderate Assistance Front Wheel Walker Gait Distance 25 ft Frequency of Treatment Frequency Of Treatment Twice a Day Treatment Plan Physical Therapy Treatment Plan Bed Mobility Training Transfer Training Gait Training Therapeutic Exercise Balance Retraining Discharge Planning Recommendations To Nursing Amount of Assist Needed Total Assistance Mechanical Lift Discharge Recommendations PT Discharge Recommendations SNF Rehab
[2018-01-14 09:46] LABS: INR 3.4 (0.9-1.3); Prothrombin Time 38.2 SECONDS (10.1-12.7)
--- NOTE | 2018-01-14 10:48 | CM.DPC ---
Addendum entered by Charleen Davey R.N. 01/14/18 15:35: Patient transfered to [facility] today via BLS transport, let family know that there could be some expense involved with transfer Original Note: DCP Cont: Murtaza from [facility] was here assessing patient. Stated that they can accept patient. patient more alert, and has been working with physical therapy. They met with daughter and son-in-law when they arrived, and evaluated patient. Let family know that this would be temporary placement until patient can travel south. Family in agreement for [facility]. P: Patient may be discharged today. Will call [facility] when orders are received. Charleen Davey RN/Broke Beater
--- NOTE | 2018-01-14 10:49 | PM.DS.1 ---
History of Present Illness Date Patient Seen: 01/14/18 Time Patient Seen: 10:49 Chief complaint: DIARRHEA,FEVER Narrative: Patient admitted with rapid AFib and urinary tract infection with sepsis and suspected septic encephalopathy. The rapid AFib was addressed with medical management in the ICU. Cardiology consultation was obtained. Patient had a sluggish response from a cognitive standpoint. I suspect patient had also toxic encephalopathy from the medications provided. After further discussion with the daughter today it appears patient may have a mild cognitive decline over the past 1-2 years. 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 In the ICU setting patient was subjected to medications that can Impart increased cognitive decline. Patient was not recognize with mild cognitive decline diagnosis prior to this admission. The family was Well aware that there were peculiararities in patient's behavior with confusion for example. Patient has been fiercely independent over the years. I suspect she is well aware of her cognitive decline and fearful of further digression. I reassured patient of her prognosis regarding her cognition And that we would be particularly mindful of medications she receives. Patient has become quite a bit deconditioned and will require further Physical therapy and/or occupational therapy. Discharge Providers Date of admission: 01/07/18 01:20 Consults: 01/08/18 16:59 Consult to Dietitian, Adult Routine Comment: Reason For Exam: assessed at high risk 01/10/18 09:37 Consult to Occupational Therapy Evaluate & Treat Comment: weakness Physician Instructions: Evaluate and treat Consult to Physical Therapy Evaluate & Treat Comment: weakness Physician Instructions: Evaluate and Treat 01/11/18 17:55 Consult to Dietitian, Adult Routine Comment: refusing meals Reason For Exam: poor calorie intake 01/13/18 12:45 Consult to Speech Therapy Evaluate & Treat Comment: Physician Instructions: Evaluate and treat 01/13/18 13:19 Consult to Speech Therapy Evaluate & Treat Comment: FOR SWALLOW EVAL AND FOR COGNITIVE ASSESSMENT. Physician Instructions: Evaluate and treat Discharge provider: Anoop Samuel MD Summary Discharge Diagnosis: 1. Rapid AFib with ventricular response controlled on day of discharge 2. Urinary tract infection with Klebsiella organism treated during hospital course 3. Diarrhea patient had 5 days of diarrhea before admission resolved during hospital course 4. Thrombocytopenia stable on discharge 5. Mild cognitive decline 6. Physical deconditioning Hospital Course: Atrial fibrillation with RVR: Repeated episodes of rapid AFib noted during hospital course. Note patient was unstable clinically in the emergency room setting and underwent cardioversion on day of admission. Principal Accounts Clerk was consulting on patient. Due to the hypotensive episode the beta-raul was held. Amiodarone was started at recommendation of customer service coordinator Coumadin anticoagulant therapy started 01/09, as requested by customer service coordinator. Daily INR requested. to follow 2. Toxic encephalopathy I suspect an infectious process has not been the cause of the more recent days of confusion. Note the patient on a fairly sizable dose of amiodarone at 400 mg t.i.d. as well as Neurontin at 600 mg t.i.d. as well as narcotic therapy as needed. I am going to decrease the amiodarone dose down considerably and discontinue the Neurontin and the stronger dosing opioids. I provided tramadol as needed instead. Family at bedside notes patient with modest improvement in the past several days though she can be a bit oppositional. (3) Elevated troponin: Note the troponin elevated during hospital course trended down and was presumed secondary to the unstable rhythm. 81 mg dose of aspirin started as cardioprotective measure (4) Acute UTI: Ceftriaxone antibiotic provided. Klebsiella organism identified and sensitive to ceftriaxone. Patient with completion of the antibiotic treatment For the UTI. I discontinued the ceftriaxone on January 12 since UTI was sufficiently treated. (5) Diarrhea: Note patient admitted with a prior 5 day history of diarrhea before admission Test for C diff colitis requested and negative (6) Thrombocytopenia: Etiology of the low platelet count not entirely clear. No active bleeding identified will continue to monitor 7. Physical deconditioning patient will warrant continued to have physical therapy and occupational therapy at this time. Status at Discharge Functional status at discharge: wheelchair bound Overall status at discharge: patient is progressing back to baseline Time Spent with Patient Greater than 30 minutes (45 min) Exam Vital Signs (past 8 hours): - 01/14/18 04:00 Temperature 98.7 F Pulse Rate 83 Respiratory Rate 18 Blood Pressure 140/85 Pulse Oximetry 97 Oxygen Delivery Method Room Air Oxygen Flow Rate 0 Narrative Exam Narrative: Patient noted awake and alert no apparent distress at rest Respiratory fairly clear to auscultation Cardiovascular irregular regular rhythm rate controlled ventricular response GI is fairly benign soft nontender Neurologic patient with weakness to the extremities and symmetric Objective Labs Result Diagrams: 01/09/18 05:00 01/11/18 04:45 Labs: Laboratory Results - last 24 hr 01/14/18 09:05 PT 38.2 H D INR 3.4 H Discharge Plan Discharge Plan Patient Disposition: SNF Transfer to: [facility] Transportation: Ambulance I certify the postop hospital detention care is medically necessary on a continuing basis for any conditions for which he/ she received care during this hospitalization.: Yes The receiving facility has agreed to accept transfer and provide medical treatment.: Yes Discharge Health Status Multidrug resistant organism: No MDRO Provider Discharge Instructions Diet: Diet as Tolerated Liquid consistency: Normal/Thin Food texture: Regular [facility] Reason for rehabilitation: Recovery r/t decondition Rehab type: Physical therapy and Occupational therapy Restrictions to mobility: none Discharge Data Attending Provider: Mason Ybarra Admit Date/Time: 01/07/18 01:20
[2018-01-14 12:57] VITALS: BP 112/65; PULSE 85; RESP 14; TEMP 36.7; O2SAT 98
--- NOTE | 2018-01-14 13:00 | PC.NURSE ---
Called report to Ethel at [facility], answered all questions and Pt is ready for discharge to SNF when transport arrives to take her. Family is present. Hanna to remain intact until mobility increases. PICC line in DHARA removed.
--- NOTE | 2018-01-14 13:50 | PT.IPTN ---
Current Diagnoses Thrombocytopenia, unspecified (01/07/18) Hypo-osmolality and hyponatremia (01/07/18) Acidosis (01/07/18) Nonrheumatic mitral (valve) insufficiency (01/07/18) Unspecified atrial fibrillation (01/07/18) Other specified soft tissue disorders (01/07/18) Urinary tract infection, site not specified (01/07/18) Tachycardia, unspecified (01/07/18) Diarrhea, unspecified (01/07/18) Other symptoms and signs involving cognitive functions and awareness (01/07/18) Abnormal levels of other serum enzymes (01/07/18) Other specified personal risk factors, not elsewhere classified (01/07/18) Physical Therapy Treatment Note M2 PT-IP Current Condition Start: 01/10/18 16:58 Freq: Status: Discharge Protocol: Document 01/10/18 15:45 RCC (Rec: 01/10/18 17:13 RCC [id number]) Physical Therapy Current Condition Current Condition Evaluation Date 01/10/18 Treatment Diagnosis diarrhea, fever, impaired mobility M3 PT-IP Subjective Start: 01/10/18 16:58 Freq: Status: Discharge Protocol: Document 01/14/18 13:50 AB (Rec: 01/14/18 16:05 AB [id number]) Subjective Physical Therapy Visit Type Type Treatment Note Visit Start Time 13:50 Visit Stop Time 14:11 Total Visit Minutes 21 Number of YOKE PRESSER Visits 0 Therapy Pain Assessment Pain When Pain Assessed During Mobility Pain Present Pain Present Pain Reported Location Left Knee Scale Used pain scale not stated M4 PT-IP Mobility and Gait Start: 01/10/18 16:58 Freq: Status: Discharge Protocol: Document 01/14/18 13:50 AB (Rec: 01/14/18 16:05 AB [id number]) PT-Transfer Assessment Sit to and From Stand Sit to and from Stand Maximum Assistance 2 Person Assistance Use of Upper Extremities Equipment Transfer Assistive Device Gait Belt Front Wheeled Walker Orthotic/Prosthetic Devices or Brace: Yes Transfers Transfer Destination Bed Toilet Transfer Technique Stand Step Pivot Transfer Ability Level of Assist Maximum Assistance 2 Person Assistance Use of Upper Extremities Comments Mobility Comments nurse and NAC present to assist. pt completed sit to stand from chair max A x 2 and max cues. pt continues to have increase fear of falling and requires cues for safety and instructions. pt completed step to transfer using FWW max A x 2 and max cues chair to bedside commode. pt required max A x 2 for controlled descent to bedside commode. pt completed sit to stand from bedside commode max a x 2 and max cues and was able to maintain standing max A x 1-2 using FWW for support while NAC assisted with hygiene care . Pt completed transfer to bed using FWW max A x 2 and max cues. pt required max Ax2- 3 for bed mobility sit to supine. positioned pt in bed. Left pt with nurse and NAC. M5 PT-IP Objective Assessments Start: 01/10/18 16:58 Freq: Status: Discharge Protocol: Document 01/12/18 13:52 LRN (Rec: 01/12/18 14:09 LRN [id number]) Orientation Orientation/Cognition Level of Alertness Lethargic Safety Awareness Decreased Safety Awareness Comments Pt was able to follow simple commands. Responses were appropriate. Pt was able to remember and repeat PNF type repetitive movement ex's at the elbow. Strength Upper Extremity Strength Assessment Bilaterally Impaired Lower Extremity Strength Assessment Bilaterally Impaired Comments Strength Comments Low tone, L LE a little worse than R LE; R UE a little worse than L UE. Muscle Tone Comments Muscle Tone Comments Low muscle tone generally in UE's and LE's. Other Assessments Other Other Assessments Generalized swelling of LE's that family states is fairly normal, except in the feet swelling is worse. Swelling in UE's in not normal. M6 PT-IP Treatment Start: 01/10/18 16:58 Freq: Status: Discharge Protocol: Document 01/14/18 09:45 AB (Rec: 01/14/18 11:36 AB [id number]) Physical Therapy Treatment Exercises Exercises Ankle Pumps Heel Slides Education Education Provided Precautions Safety Other Treatments Other Treatment Performed pt completed AAROM of heel slide and AROM of ankle pumps M7 PT-IP Assessment and Plan Start: 01/10/18 16:58 Freq: Status: Discharge Protocol: Document 01/14/18 13:50 AB (Rec: 01/14/18 16:05 AB [id number]) PT Summary Assessment and Plan Potential Rehabilitation Potential Fair Summary Impairments Pain ROM Strength Balance Coordination Sensation Tone Cognition Bed Mobility Transfers Gait Activity Tolerance Progress Towards Goals Slow Progress due to Medical Issues Slow Progress due to Activity Tolerance Assessment Summary pt continues to require 2 person assist with mobility and will require SNF rehab to improve mobility. Goals Bed Mobility Goal Moderate Assistance Transfer Goal Moderate Assistance Front Wheeled Walker Gait Goal Moderate Assistance Front Wheel Walker Gait Distance 25 ft Frequency of Treatment Frequency Of Treatment Twice a Day Treatment Plan Physical Therapy Treatment Plan Bed Mobility Training Transfer Training Gait Training Therapeutic Exercise Balance Retraining Discharge Planning Recommendations To Nursing Amount of Assist Needed Total Assistance Mechanical Lift Discharge Recommendations PT Discharge Recommendations SNF Rehab
--- NOTE | 2018-01-14 14:55 | PC.NURSE ---
Pt transferred to stretcher via slider board with multi person assist, Pt tolerated transfer well. All belongings packed up and transferred with family who are following Pt over to [facility].
== END 2018-01-14 14:58 | DRG 280 ==
LOC: ED 01-07 00:49 → AC 01-07 01:21 → ICU 11-04 07:49
PROVIDERS: Internal Medicine; Admitting Provider Internal Medicine; Emergency Provider Emergency Medicine; Visit Provider Internal Medicine
DX: I48.91 Unspecified atrial fibrillation (principal); G92 Toxic encephalopathy; I21.A1 Myocardial infarction type 2; N39.0 Urinary tract infection, site not specified; E87.1 Hypo-osmolality and hyponatremia; E87.2 Acidosis; I50.30 Unspecified diastolic (congestive) heart failure; B96.1 Klebsiella pneumoniae [K. pneumoniae] as the cause of diseases classified elsewhere; E86.0 Dehydration; I95.9 Hypotension, unspecified; D69.6 Thrombocytopenia, unspecified; R19.7 Diarrhea, unspecified; M79.89 Other specified soft tissue disorders; R33.9 Retention of urine, unspecified; I34.0 Nonrheumatic mitral (valve) insufficiency; T42.6X5A Adverse effect of other antiepileptic and sedative-hypnotic drugs, initial encounter; T46.2X5A Adverse effect of other antidysrhythmic drugs, initial encounter; Z87.891 Personal history of nicotine dependence; I44.7 Left bundle-branch block, unspecified; R60.0 Localized edema
CPT/HCPCS: 36415; 36569; 36591; 36592; 51701; 51705; 70450; 71045; 71275; 76700; 80048; 80053; 80061; 81001; 82550; 82553; 82607; 83605; 83735; 83880; 83935; 84300; 84443; 84484; 85025; 85379; 85610; 87077; 87086; 87186; 87797; 92960; 93005; 93010; 93306; 93970; 94760; 96125; 96361; 96365; 96375; 97110; 97163; 97166; 97530; 97535; 99285; 99291; 99292; J0696; J1170; J2270; J2405; Q9967